=== PATIENT | male | born 2000 | race Caucasian/White ===

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

== ENCOUNTER 2022-05-09 00:45 | Inpatient (IN) ==
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
[2022-05-09 02:26] LABS: Appearance Urine Cloudy (Clear); Bacteria Urine Automated 4+ (Negative); Bilirubin Urine Negative (Negative); Blood Urine Negative (Negative); Color Urine Dark Yellow; Epithelial Cell Urine Auto >30 /lpf (0-5); Glucose Urine UA Negative (Negative); Ketones Urine Trace (Negative); Leukocyte Esterase Urine 2+ (Negative); Nitrite Urine Positive (Negative); Protein Urine Trace (Negative); RBC Urine Automated 0-4 /hpf (0-4); Urobilinogen Urine Negative (Negative); WBC Urine Automated >30 /hpf (0-5); pH Urine 6.5 (4.5-7.5)
[2022-05-09 02:58] LABS: Basophils # (auto) 0.03 K/uL (0-0.2); Basophils % (auto) 0.3 %; Eosinophils # (auto) 0.08 K/uL (0-0.50); Eosinophils % (auto) 0.7 %; Hematocrit (blood only) 39.1 % (40.1-51.0); Hemoglobin 13.3 g/dl (14.0-18.0); Immature Granulocytes # (auto) 0.03 K/uL (0.00-0.02); Immature Granulocytes % (auto) 0.3 %; Lymphocytes # (auto) 2.31 K/uL (1.2-3.4); Lymphocytes % (auto) 20.7 %; Mean Corpuscular Hemoglobin 27.9 pg (25.0-34.0); Mean Platelet Volume 9.3 fL (9.4-12.4); Monocytes # (auto) 0.58 K/uL (0.24-0.82); Monocytes % (auto) 5.2 %; Neutrophils # (auto) 8.11 K/uL (1.4-6.5); Neutrophils % (auto) 72.8 %; Platelet Count 519 K/uL (130-400); RDW Coefficient of Variation 15.3 % (11.5-14.5); RDW Standard Deviation 46.1 fL (36.4-46.3); Red Blood Count 4.77 M/uL (4.63-6.08); White Blood Count 11.14 K/ul (4.8-10.8)
[2022-05-09 03:23] LABS: Alanine Aminotransferase 12 U/L (7-52); Albumin Globulin Ratio 1.2 (0.9-2); Albumin Level 4.3 gm/dl (3.4-5.0); Alkaline Phosphatase 89 U/L (34-104); Anion Gap 7 (3-11); Aspartate Aminotransferase 11 U/L (13-39); BUN Creatinine Ratio 19.1 (10-20); Bilirubin,Total 0.3 mg/dl (0.2-1.0); Blood Urea Nitrogen 13 mg/dl (6-23); Calcium 9.3 mg/dl (8.5-10.1); Carbon Dioxide 29 mmol/L (21-32); Chloride 101 mmol/L (98-107); Creatinine Clr Calc Pharmacy 142.7 ml/min; Est GFR (African American) > 150.0 ml/min; Est GFR (Non-African American) 135.6 ml/min; Globulin 3.5 gm/dl (2.5-4.0); Glucose 123 mg/dl (70-99(Fasting)); Potassium 3.8 mmol/L (3.5-5.1); Sodium 137 mmol/L (136-145); Total Protein 7.8 gm/dl (6.0-8.3)
[2022-05-09 04:04] LABS: Amphetamines+Metham, Urine Neg (Neg); Barbiturates, Urine Neg (Neg); Benzodiazepine, Urine Neg (Neg); Cocaine, Urine Neg (Neg); MDMA (Ecstacy), Urine Neg (Neg); Methadone, Urine Neg (Neg); Opiate, Urine Neg (Neg); Phencyclidine, Urine Neg (Neg)
[2022-05-09] MEDS ORDERED: POLYETHYLENE (MIRALAX) 17 GM PACK PO PRN (08:10)
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
[2022-05-09] MEDS ORDERED: PIPERACILLIN/TAZOBACTAM 3.375 GM in DEXTROSE 5% 100 ML IV ONE (09:00)
[2022-05-09] MEDS: HEPARIN SOD 5,000 UNIT/0.5 ML VIAL SQ SCH ×3 (10:40→21:48)
[2022-05-09] MEDS: OXYBUTYNIN CHLORIDE 5 MG TAB PO SCH ×2 (10:41→20:53)
[2022-05-09] MEDS: GABAPENTIN 100 MG CAP PO SCH ×2 (10:41→20:53)
[2022-05-09] MEDS: PIPERACILLIN/TAZOBACTAM 3.375 GM in DEXTROSE 5% 100 ML IV SCH ×2 (15:35→21:59)
[2022-05-09] MEDS: BACLOFEN 20 MG TAB PO PRN ×2 (16:19→21:47)
[2022-05-09] MEDS: traMADol HCL 50 MG TABLET PO PRN ×2 (16:19→21:47)
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
[2022-05-09] MEDS: ASCORBIC ACID 500 MG TAB PO SCH (20:53)
[2022-05-10] MEDS: BACLOFEN 20 MG TAB PO PRN ×2 (04:08→09:44)
[2022-05-10] MEDS: traMADol HCL 50 MG TABLET PO PRN ×2 (04:08→15:03)
[2022-05-10] MEDS: PIPERACILLIN/TAZOBACTAM 3.375 GM in DEXTROSE 5% 100 ML IV SCH ×3 (06:19→21:26)
[2022-05-10] MEDS: HEPARIN SOD 5,000 UNIT/0.5 ML VIAL SQ SCH ×3 (06:21→21:25)
[2022-05-10] MEDS: GABAPENTIN 100 MG CAP PO SCH ×2 (09:44→21:24)
[2022-05-10] MEDS: ASCORBIC ACID 500 MG TAB PO SCH (09:44)
[2022-05-10] MEDS: OXYBUTYNIN CHLORIDE 5 MG TAB PO SCH ×2 (09:44→21:25)
[2022-05-10] MEDS: BACLOFEN 20 MG TAB PO SCH ×2 (16:24→21:25)
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
--- NOTE | 2022-05-10 19:37 | CT Scan Report ---
CT pelvis wo con HISTORY: 21 years-old Male sacral decubitus ulcer, r/o Osteo myelitis paraplegia patient with chroni c sacral decubitus ulcer. COMPARISON: CT abdomen and pelvis 02/25/2021 TECHNIQUE: Multiple axial CT images of the pelvis were obtained without the use of IV contrast. FINDINGS: Limited exam secondary to positioning. Air-fluid levels are noted within nondilated loops of small an d large bowel. The appendix is not definitively seen. Moderate circumferential urinary bladder wall t hickening. Prostate is upper limits of normal in size. Suggestion of bilateral hydroceles. Left-sided sacral decubitus ulcer extends to the sacrococcygeal junction. No soft tissue abscess. Tra ce presacral edema. There is chronic fracture with sclerosis and angulation at the sacrococcygeal manuel ction which is new from the 02/25/2021 exam. Moderate associated cortical thickening. No acute osseou s erosion identified. Heterotopic ossifications noted superior to the right femoral acetabular joint. IMPRESSION: 1. Left sacral decubitus ulcer without abscess. 2. Findings suggestive of chronic osteomyelitis of the sacrococcygeal junction with chronic angulated fracture deformity, likely on a pathologic basis. This is new from the initial trauma study from . 3. Urinary bladder wall thickening suggestive of neurogenic bladder. ACT 112: Negative or not required by law. The above report was generated using voice recognition software. It may contain grammatical, syntax o r spelling errors. Electronically signed by: Diego Salmeron M.D. 05/10/2022 7:34 PM
[2022-05-11] MEDS: BACLOFEN 20 MG TAB PO SCH ×4 (03:57→21:14)
[2022-05-11] MEDS: PIPERACILLIN/TAZOBACTAM 3.375 GM in DEXTROSE 5% 100 ML IV SCH ×2 (05:39→14:54)
[2022-05-11] MEDS: HEPARIN SOD 5,000 UNIT/0.5 ML VIAL SQ SCH ×3 (05:39→21:14)
[2022-05-11] MEDS: OXYBUTYNIN CHLORIDE 5 MG TAB PO SCH ×2 (09:17→21:14)
[2022-05-11] MEDS: GABAPENTIN 100 MG CAP PO SCH ×2 (09:17→21:13)
[2022-05-11] MEDS: ASCORBIC ACID 500 MG TAB PO SCH (09:17)
[2022-05-11 10:17] LABS: Marijuana Quant, GCMS Urine 38 ng/mL (<5)
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
[2022-05-11 15:39] LABS: Hematocrit (blood only) 40.3 % (40.1-51.0); Hemoglobin 13.6 g/dl (14.0-18.0); Mean Corpuscular Hemoglobin 27.9 pg (25.0-34.0); Mean Corpuscular Hgb Conc 33.7 g/dL (32.0-36.0); Mean Corpuscular Volume 82.6 fL (80.0-100.0); Platelet Count 647 K/uL (130-400); RDW Coefficient of Variation 15.6 % (11.5-14.5); RDW Standard Deviation 47.3 fL (36.4-46.3); Red Blood Count 4.88 M/uL (4.63-6.08); White Blood Count 8.75 K/ul (4.8-10.8)
[2022-05-11] MEDS: cefTRIAXone SODIUM 2,000 MG in DEXTROSE 5% 50 ML IV SCH (15:45)
[2022-05-11 16:04] LABS: BUN Creatinine Ratio 21.2 (10-20); Calcium 9.7 mg/dl (8.5-10.1); Creatinine Clr Calc Pharmacy 114.1 ml/min; Est GFR (African American) 143.4 ml/min; Est GFR (Non-African American) 123.7 ml/min; Potassium 4.2 mmol/L (3.5-5.1)
[2022-05-12] MEDS: BACLOFEN 20 MG TAB PO SCH ×4 (04:59→21:11)
[2022-05-12] MEDS: HEPARIN SOD 5,000 UNIT/0.5 ML VIAL SQ SCH ×3 (05:00→21:12)
[2022-05-12] MEDS: OXYBUTYNIN CHLORIDE 5 MG TAB PO SCH ×2 (08:56→19:17)
[2022-05-12] MEDS: GABAPENTIN 100 MG CAP PO SCH ×2 (08:56→19:17)
[2022-05-12] MEDS: ASCORBIC ACID 500 MG TAB PO SCH (08:56)
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
[2022-05-12] MEDS: cefTRIAXone SODIUM 2,000 MG in DEXTROSE 5% 50 ML IV SCH (16:56)
[2022-05-12] MEDS: traMADol HCL 50 MG TABLET PO PRN (19:16)
[2022-05-12] MEDS: ACETAMINOPHEN 325 MG TAB PO PRN (21:22)
[2022-05-13] MEDS: BACLOFEN 20 MG TAB PO SCH ×4 (04:55→21:35)
[2022-05-13] MEDS: HEPARIN SOD 5,000 UNIT/0.5 ML VIAL SQ SCH ×3 (05:14→21:35)
[2022-05-13] MEDS: ASCORBIC ACID 500 MG TAB PO SCH (09:06)
[2022-05-13] MEDS: GABAPENTIN 100 MG CAP PO SCH ×2 (09:06→19:36)
[2022-05-13] MEDS: OXYBUTYNIN CHLORIDE 5 MG TAB PO SCH ×2 (09:06→19:37)
[2022-05-13] MEDS: traMADol HCL 50 MG TABLET PO PRN ×2 (11:21→19:35)
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
[2022-05-13] MEDS: cefTRIAXone SODIUM 2,000 MG in DEXTROSE 5% 50 ML IV SCH (15:53)
[2022-05-13] MEDS: ACETAMINOPHEN 325 MG TAB PO PRN (19:34)
[2022-05-13] MEDS ORDERED: GADOBUTROL 65ML VIAL IV ONE (22:39)
[2022-05-14] MEDS: BACLOFEN 20 MG TAB PO SCH ×4 (04:55→21:26)
[2022-05-14] MEDS: HEPARIN SOD 5,000 UNIT/0.5 ML VIAL SQ SCH ×3 (05:07→21:28)
[2022-05-14] MEDS: ASCORBIC ACID 500 MG TAB PO SCH (08:06)
[2022-05-14] MEDS: GABAPENTIN 100 MG CAP PO SCH ×2 (08:06→21:27)
[2022-05-14] MEDS: OXYBUTYNIN CHLORIDE 5 MG TAB PO SCH ×2 (08:06→21:26)
[2022-05-14] MEDS: traMADol HCL 50 MG TABLET PO PRN ×3 (08:06→21:25)
--- NOTE | 2022-05-14 08:55 | Magnetic Resonance Report ---
MR pelvis wo/w con CLINICAL HISTORY: ID recs; for osteomyelitis TECHNIQUE: Multiplanar multisequence images were obtained of the abdomen with and without the adminis tration of contrast. COMPARISON: Comparison is made to CT pelvis 05/10/2022 FINDINGS: Bowel: Unremarkable. Lymph nodes: Unremarkable. Bladder: Unremarkable. Reproductive organs: No acute abnormalities. There are wedge-shaped hypodensities in the peripheral z one which are nonspecific. Vessels: Unremarkable. Abdominal wall: There is edema and subcutaneous emphysema in the soft tissues about the sacrum extend ing to the skin surface. No drainable fluid collection is seen. Bones: Edema is seen in the lower sacrum compatible with osteomyelitis. The chronic fracture of the s acrococcygeal junction is better seen on CT. IMPRESSION: Findings compatible with osteomyelitis of the lower sacrum with associated cellulitis. ACT 112: Negative or not required by law. Electronically signed by: Abad Bernal M.D. 05/14/2022 8:53 AM
[2022-05-14 09:54] LABS: Hemoglobin 14.4 g/dl (14.0-18.0); Mean Corpuscular Hemoglobin 27.9 pg (25.0-34.0); Mean Corpuscular Hgb Conc 33.5 g/dL (32.0-36.0); Mean Corpuscular Volume 83.3 fL (80.0-100.0); Mean Platelet Volume 8.7 fL (9.4-12.4); Platelet Count 665 K/uL (130-400); RDW Coefficient of Variation 15.8 % (11.5-14.5); Red Blood Count 5.16 M/uL (4.63-6.08); White Blood Count 7.22 K/ul (4.8-10.8)
[2022-05-14 10:19] LABS: Anion Gap 7 (3-11); BUN Creatinine Ratio 25.7 (10-20); Blood Urea Nitrogen 18 mg/dl (6-23); Calcium 10.6 mg/dl (8.5-10.1); Carbon Dioxide 31 mmol/L (21-32); Chloride 100 mmol/L (98-107); Creatinine Clr Calc Pharmacy 138.6 ml/min; Est GFR (African American) > 150.0 ml/min; Glucose 93 mg/dl (70-99(Fasting)); Magnesium 1.9 mg/dl (1.7-2.4); Potassium 4.1 mmol/L (3.5-5.1); Sodium 138 mmol/L (136-145)
[2022-05-14] MEDS: cefTRIAXone SODIUM 2,000 MG in DEXTROSE 5% 50 ML IV SCH (15:26)
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
[2022-05-15] MEDS: BACLOFEN 20 MG TAB PO SCH ×4 (03:29→21:16)
[2022-05-15] MEDS: HEPARIN SOD 5,000 UNIT/0.5 ML VIAL SQ SCH ×3 (06:08→21:16)
[2022-05-15] MEDS: traMADol HCL 50 MG TABLET PO PRN ×3 (08:49→21:15)
[2022-05-15] MEDS: GABAPENTIN 100 MG CAP PO SCH ×2 (09:09→21:16)
[2022-05-15] MEDS: ASCORBIC ACID 500 MG TAB PO SCH (09:09)
[2022-05-15] MEDS: OXYBUTYNIN CHLORIDE 5 MG TAB PO SCH ×2 (09:09→21:16)
--- NOTE | 2022-05-15 14:05 | Surgery Progress Note ---
Date of Service May 15, 2022 Assessment & Plan (1) Sacral decubitus ulcer: (2) Osteomyelitis: Plan 21 year-old paraplegic with chronic sacral wound now with MRI of pelvis showing osteomyelitis. Infectious disease recommending bone biopsy for culture and pathology to determine antibiotic therapy. Will plan for sacral wound bone biopsy tomorrow in operating room under sedation. Npo after midnight. continue current medical management. Will update case management in case of need of grease renderer antibiotic treatment. Discussed with Dr. Morgan who agrees with above. Admission and Anticipated Discharge Date Admission Date: May 09, 2022 Subjective states he had issues with wound care at last rehab facility. Never had wound vac before. Believes he had a bone biopsy done in [place] about 6 months ago but does not believe he was ever treated for wound infection States he has some soreness due to wound vac and positioning but does not feel p ain because of being paraplegic. Physical Exam Constitutional: WD/WN, vitals as above well developed and well nourished; no acute distress Neck: normal visual inspection and trachea midline Respiratory: normal respiratory effort; no respiratory distress, no labored breathing and no retractions Gastrointestinal (Abdomen): Inspection/Auscultation: abdomen normal to inspection; abdomen not distended Has colostomy bag present. He is lying on his right side. Wound vac is present and functioning. Sacral wound not examined given wound vac present. Skin: no rashes, warm and dry Psychiatric: Orientation: alert and oriented x 3 Results & Data ([facility]) Vital Signs (Past 12 Hours) Vital Signs Temp Pulse Resp BP Pulse Ox O2 Del Method 05/15/22 10:57 Room Air 05/15/22 07:14 37 C 75 16 107/64 95 Room Air Diagnostic Findings MR pelvis wo/w con CLINICAL HISTORY: ID recs; for osteomyelitis TECHNIQUE: Multiplanar multisequence images were obtained of the abdomen with and without the administration of contrast. COMPARISON: Comparison is made to CT pelvis 05/10/2022 FINDINGS: Bowel: Unremarkable. Lymph nodes: Unremarkable. Bladder: Unremarkable. Reproductive organs: No acute abnormalities. There are wedge-shaped hypodensities in the peripheral zone which are nonspecific. Vessels: Unremarkable. Abdominal wall: There is edema and subcutaneous emphysema in the soft tissues about the sacrum extending to the skin surface. No drainable fluid collection is seen. Bones: Edema is seen in the lower sacrum compatible with osteomyelitis. The chronic fracture of the sacrococcygeal junction is better seen on CT. IMPRESSION: Findings compatible with osteomyelitis of the lower sacrum with associated cellulitis.
[2022-05-15] MEDS: cefTRIAXone SODIUM 2,000 MG in DEXTROSE 5% 50 ML IV SCH (15:57)
[2022-05-15] MEDS: ACETAMINOPHEN 325 MG TAB PO PRN (15:57)
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
[2022-05-16] MEDS: BACLOFEN 20 MG TAB PO SCH ×4 (03:50→20:20)
[2022-05-16] MEDS: HEPARIN SOD 5,000 UNIT/0.5 ML VIAL SQ SCH ×3 (05:43→20:20)
--- NOTE | 2022-05-16 08:38 | History & Physical Bridge Note ---
Date of Service May 16, 2022 History & Physical Bridge Note I have examined the patient, reviewed the History & Physical and in the interval since the performance of the History & Physical I have noted the following changes of clinical significance: no changes noted
[2022-05-16] MEDS ORDERED: BUPIVACAINE 0.5 % 5 MG/1 ML MPF 30ML VIAL ONE (09:15)
[2022-05-16] MEDS ORDERED: LIDOCAINE 2% MPF LOCAL 5 ML VIAL INFIL ONE ×2 (09:43→10:13)
[2022-05-16] MEDS ORDERED: fentaNYL citrate 100 MCG/2 ML VIAL ONE (09:43)
[2022-05-16] MEDS ORDERED: MIDAZOLAM HCL 1 MG/ML 2ML VIAL ONE (09:43)
[2022-05-16] MEDS ORDERED: PROPOFOL IV EMULSION 10 MG/ML 20 ML VIAL IV ONE ×2 (09:43→10:13)
[2022-05-16] MEDS ORDERED: ONDANSETRON INJ 2 MG/ML 2 ML VIAL ONE (10:13)
--- NOTE | 2022-05-16 10:17 | Post Operative Brief Note ---
Immediate Post Op Note v1 Date of Surgery May 16, 2022 Pre & Post Diagnosis Operation Date: 05/16/22 08:20 Pre-Op Diagnosis: Sacral Decubitus Wound Post-Op Diagnosis: Sacral Decubitus Wound I identified the patient and participated in the time-out.: Yes Procedure Operation Date: 05/16/22 08:20 Actual Procedures p Bone Biopsy of Sacral Wound(Not Applicable) - Devon Morgan MD Surgeon Devon Morgan MD Certified Professional Ergonomist none Estimated Blood Loss 2 Findings Consistent with Post-Op Diagnosis
--- NOTE | 2022-05-16 10:20 | Operative Report ---
Post Operative Report Pre & Post Diagnosis Operation Date: 05/16/22 08:20 Pre-Op Diagnosis: Sacral Decubitus Wound Post-Op Diagnosis: Sacral Decubitus Wound I identified the patient and participated in the time-out.: Yes Procedure Operation Date: 05/16/22 08:20 Actual Procedures p Bone Biopsy of Sacral Wound(Not Applicable) - Devon Morgan MD Surgeon Devon Morgan MD Ocean Export Account Manager none Estimated Blood Loss 2 Findings Consistent with Post-Op Diagnosis Specimens sacral bone fragments for culture and pathology Drains none Anesthesia Type MAC Complications no immediate complications Description of Procedure Patient taken to the operating room, placed supine on the operating table. A time was performed, and the patient was placed in the lateral decubitus position. After adequate anesthesia allergies was obtained, the area was prepped and draped in the normal sterile fashion. The sacral wound measured 3 cm in length and 2 cm in width. It tracked 2 cm to the right undermining the skin. It was down to the bone. There is no necrosis or fibrinous exudate. Bone biopsies were taken for culture and pathology. These were sent off field for specimen. Attention was turned hemostasis, which was excellent. The wound was packed wet-to-dry and a dressing was applied. He tolerated the procedure without complication, transferred in stable condition to the PACU. All instrument, needle, and sponge counts were correct at the end of the case. I attest to the content of the Intraoperative Record and any orders documented therein. Any exceptions are noted below.
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
[2022-05-16] MEDS ORDERED: ATROPINE SULFATE 0.1 MG/ML 10ML SYR IV PRN (10:33)
[2022-05-16] MEDS ORDERED: ePHEDrine sulfate 50 MG/ML AMP IV PRN (10:33)
[2022-05-16] MEDS ORDERED: ONDANSETRON INJ 2 MG/ML 2 ML VIAL IV PRN (10:33)
[2022-05-16] MEDS: fentaNYL citrate 100 MCG/2 ML VIAL IV PRN ×2 (10:42→10:47)
[2022-05-16] MEDS: GABAPENTIN 100 MG CAP PO SCH ×2 (11:41→20:21)
[2022-05-16] MEDS: ASCORBIC ACID 500 MG TAB PO SCH (11:42)
[2022-05-16] MEDS: OXYBUTYNIN CHLORIDE 5 MG TAB PO SCH ×2 (11:42→20:20)
[2022-05-16] MEDS: traMADol HCL 50 MG TABLET PO PRN ×2 (11:46→19:17)
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
--- NOTE | 2022-05-16 12:41 | Anesthesiology Progress Note ---
Date of Service May 16, 2022 Anesthesia Post Procedure Vital Signs Vital Signs: Temp Pulse Pulse Pulse Resp BP BP 05/16/22 12:31 36.6 C 65 17 121/78 05/16/22 12:06 105/57 L 05/16/22 11:51 36.8 C 98 H 16 86/56 L 05/16/22 11:22 36.3 C L 69 16 104/58 L 05/16/22 11:00 36.4 C L 71 15 111/68 05/16/22 10:45 104 H 20 90/50 L 05/16/22 10:35 122 H 20 100/37 L 05/16/22 10:27 36.4 C L 85 15 93/49 L 05/16/22 08:26 36.7 C 94 H 20 124/79 05/15/22 22:41 36.8 C 60 18 146/83 H 05/15/22 14:59 36.6 C 86 16 105/67 Pulse Ox O2 Del Method 05/16/22 12:31 94 Room Air 05/16/22 12:06 05/16/22 11:51 96 Room Air 05/16/22 11:22 93 Room Air 05/16/22 11:00 97 Room Air 05/16/22 10:45 97 Room Air 05/16/22 10:35 97 Room Air 05/16/22 10:27 97 Room Air 05/16/22 08:26 99 Room Air 05/15/22 22:41 97 Room Air 05/15/22 14:59 99 Room Air Pain Intensity Back: Pain Intensity: 5 Transfer of Care Handoff Completed per policy Notes Mental Status: alert / awake / arousable Patient Amnestic to Procedure: Yes Nausea / Vomiting: adequately controlled Pain: adequately controlled Airway Patency, RR, SpO2: stable & adequate BP & HR: stable & adequate Hydration State: stable & adequate Anesthetic Complications: no major complications apparent
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
[2022-05-16] MEDS: cefTRIAXone SODIUM 2,000 MG in DEXTROSE 5% 50 ML IV SCH (16:53)
[2022-05-16] MEDS: ACETAMINOPHEN 325 MG TAB PO PRN (20:19)
[2022-05-17] MEDS: HEPARIN SOD 5,000 UNIT/0.5 ML VIAL SQ SCH ×3 (05:36→21:42)
[2022-05-17] MEDS: BACLOFEN 20 MG TAB PO SCH ×4 (05:36→21:41)
[2022-05-17] MEDS: OXYBUTYNIN CHLORIDE 5 MG TAB PO SCH ×2 (08:30→21:42)
[2022-05-17] MEDS: GABAPENTIN 100 MG CAP PO SCH ×2 (08:30→21:41)
[2022-05-17] MEDS: traMADol HCL 50 MG TABLET PO PRN ×2 (08:31→16:13)
[2022-05-17] MEDS: ASCORBIC ACID 500 MG TAB PO SCH (08:31)
[2022-05-17] MEDS: cefTRIAXone SODIUM 2,000 MG in DEXTROSE 5% 50 ML IV SCH (15:59)
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
[2022-05-17] MEDS: ACETAMINOPHEN 325 MG TAB PO PRN (16:12)
[2022-05-18] MEDS: traMADol HCL 50 MG TABLET PO PRN ×3 (00:10→16:50)
[2022-05-18] MEDS: BACLOFEN 20 MG TAB PO SCH ×4 (03:11→22:08)
[2022-05-18] MEDS: HEPARIN SOD 5,000 UNIT/0.5 ML VIAL SQ SCH ×3 (05:40→22:07)
[2022-05-18] MEDS: OXYBUTYNIN CHLORIDE 5 MG TAB PO SCH ×2 (08:19→22:08)
[2022-05-18] MEDS: ASCORBIC ACID 500 MG TAB PO SCH (08:20)
[2022-05-18] MEDS: GABAPENTIN 100 MG CAP PO SCH ×2 (08:20→22:08)
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
[2022-05-19] MEDS: HEPARIN SOD 5,000 UNIT/0.5 ML VIAL SQ SCH ×3 (05:04→21:50)
[2022-05-19] MEDS: BACLOFEN 20 MG TAB PO SCH ×4 (05:04→21:49)
--- NOTE | 2022-05-19 08:31 | Communication Note ---
Date of Service: May 19, 2022 GI was consulted regarding reversal of his ostomy. Discussed with attending, hospitalist. This will need to be evaluated by either general surgery or col orectal. Recall with any questions or concerns.
[2022-05-19] MEDS: GABAPENTIN 100 MG CAP PO SCH ×2 (08:50→21:50)
[2022-05-19] MEDS: ASCORBIC ACID 500 MG TAB PO SCH (08:50)
[2022-05-19] MEDS: ACETAMINOPHEN 325 MG TAB PO PRN ×2 (08:50→19:53)
[2022-05-19] MEDS: OXYBUTYNIN CHLORIDE 5 MG TAB PO SCH ×2 (08:50→21:50)
[2022-05-19] MEDS: traMADol HCL 50 MG TABLET PO PRN ×2 (08:51→19:53)
[2022-05-19] MEDS: DAPTOmycin 475 MG in SYRINGE 0 ML IV SCH (12:28)
--- NOTE | 2022-05-19 12:45 | Communication Note ---
Date of Service: May 19, 2022 General Surgery consulted for evaluation of colostomy/mucous fistula reversal. Discussed with Dr. Harrell that this would not be recommended at this time due to the sacral wound and chronic osteomyelitis. Would need to know for certain if patient is bowel continent prior to any discussion of reversal. It would be advised that he return to his prior general/colorectal surgeon who performed the colostomy for discussion of reversal if possible. Discussed with Dr. Morgan who agrees with above.
[2022-05-19] MEDS ORDERED: diphenhydrAMINE Capsule 25 MG CAP PO ONE (15:15)
[2022-05-19] MEDS ORDERED: CETIRIZINE HCL 10 MG TABLET PO ONE (15:15)
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
[2022-05-20] MEDS: BACLOFEN 20 MG TAB PO SCH ×5 (04:13→21:42)
[2022-05-20] MEDS: traMADol HCL 50 MG TABLET PO PRN ×3 (04:15→16:58)
[2022-05-20] MEDS: HEPARIN SOD 5,000 UNIT/0.5 ML VIAL SQ SCH ×3 (05:33→21:04)
[2022-05-20] MEDS: ACETAMINOPHEN 325 MG TAB PO PRN ×3 (08:58→21:02)
[2022-05-20] MEDS: OXYBUTYNIN CHLORIDE 5 MG TAB PO SCH ×2 (08:59→21:08)
[2022-05-20] MEDS: CETIRIZINE HCL 10 MG TABLET PO SCH (08:59)
[2022-05-20] MEDS: ASCORBIC ACID 500 MG TAB PO SCH (09:00)
[2022-05-20] MEDS: GABAPENTIN 100 MG CAP PO SCH ×3 (09:00→21:42)
[2022-05-20] MEDS: DAPTOmycin 475 MG in SYRINGE 0 ML IV SCH (11:41)
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
--- NOTE | 2022-05-20 20:10 | CT Scan Report ---
CT SCAN OF THE ABDOMEN AND PELVIS WITHOUT IV CONTRAST CLINICAL HISTORY: Generalized abdominal pain. Nausea. COMPARISON STUDY: Abdominal CT dated 02/25/2021. MRI of the pelvis dated 05/13/2022. TECHNIQUE: CT scan of the abdomen and pelvis is performed from the lung bases to the proximal femora. Images are reviewed in the axial, sagittal, and coronal planes. IV contrast was not administered for this examination as per the referring clinician. Note that the examination was performed in signific antly suboptimal fashion without oral and IV contrast. A dose lowering technique was utilized adherin g to the principles of ALARA. CT DOSE: 298.38 mGy.cm FINDINGS: Lung bases: The heart is normal in size and without pericardial effusion. The lung bases are clear. Liver: The unenhanced liver is normal in size, contour, and attenuation. There is no intrahepatic zeyad iary ductal dilatation. Gallbladder: Unremarkable. Spleen: Normal in size and attenuation. Pancreas: Unremarkable. Adrenal glands: Unremarkable. Kidneys: There is asymmetric cortical atrophy of the right kidney as compared to the left. No hydrone phrosis is seen. There are no renal calculi identified. There is no evidence of contour deforming mulugeta al mass lesion. Abdominal vasculature: The abdominal aorta is normal in course and caliber. Bowel: There is postoperative change from colonic resection. A colostomy seen in the right mid abdome n and a mucous fistula is seen in the left midabdomen. There is moderate fecal retention in the right colon. The small bowel loops are dilated and fecalized, measuring up to 3.8 cm diameter. There is a focal transition point in the right lower quadrant seen on image #307. The distal small bowel is deco mpressed and this is consistent with a high-grade obstruction. There is surrounding mesenteric edema and interloop fluid. No focally thick-walled bowel loops are identified. There is no pneumatosis inte stinalis or portal venous gas. The appendix is not visualized. Peritoneum: There is no intraperitoneal free air or abdominal ascites. Lymphadenopathy: None. Pelvic viscera: The bladder is decompressed around a Pelayo catheter and appears circumferential thick -walled. There are foci of intraluminal gas. The prostate and seminal vesicles are normal as visualiz ed. Skeletal structures: No lytic or blastic lesions are seen. There is chronic deformity of the hips and bony pelvis. Sclerotic change, deformity, and periostitis of the sacrum is similar to previous with surrounding infiltration. There is mild erosive change suggested at the sacrococcygeal junction findi ngs are consistent with osteolytic myelitis which may be chronic. This is better assessed on the rece nt pelvic MRI. IMPRESSION: 1. High-grade small bowel obstruction with a transition point seen in the right lower quadrant. This is likely in the basis of adhesions. 2. There is interloop fluid and mild mesenteric edema. No focally thick walled small bowel loops iden tified. There is no pneumatosis intestinalis, portal venous gas, or intraperitoneal free air. 3. There is evidence of sacrococcygeal osteomyelitis. This may be chronic and this was better assesse d on the recent pelvic MRI. 4. The bladder is decompressed and appears circumferentially thick walled. Correlate with clinical fi ndings and urinalysis. 5. Asymmetric cortical atrophy of the right kidney is similar to previous. 6. Additional findings as above. ACT 112: Negative or not required by law. Electronically signed by: Pritesh Dodson M.D. 05/20/2022 8:08 PM
[2022-05-20] MEDS: SODIUM CHLORIDE 0.9% 1000ML 1,000 ML IV SCH (20:58)
[2022-05-20] MEDS: ondansetron HCL 6 MG in DEXTROSE 5% 50 ML IV PRN (21:03)
[2022-05-20] MEDS: tiZANidine HCL 4 MG TABLET PO PRN (21:08)
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
[2022-05-20] MEDS: KETOROLAC TROMETHAMINE 15 MG/ML VIAL IV PRN (22:31)
[2022-05-21] MEDS: traMADol HCL 50 MG TABLET PO PRN ×4 (01:50→22:20)
[2022-05-21] MEDS: BACLOFEN 20 MG TAB PO SCH ×4 (01:50→22:22)
[2022-05-21] MEDS: KETOROLAC TROMETHAMINE 15 MG/ML VIAL IV PRN ×2 (06:04→13:05)
[2022-05-21] MEDS: HEPARIN SOD 5,000 UNIT/0.5 ML VIAL SQ SCH ×3 (06:07→22:23)
[2022-05-21] MEDS: SODIUM CHLORIDE 0.9% 1000ML 1,000 ML IV SCH (08:57)
[2022-05-21] MEDS: CETIRIZINE HCL 10 MG TABLET PO SCH (08:58)
[2022-05-21] MEDS: ASCORBIC ACID 500 MG TAB PO SCH (08:58)
[2022-05-21] MEDS: OXYBUTYNIN CHLORIDE 5 MG TAB PO SCH ×2 (08:58→22:22)
[2022-05-21] MEDS: GABAPENTIN 100 MG CAP PO SCH ×2 (08:58→22:22)
[2022-05-21] MEDS: ACETAMINOPHEN 1,000 MG/100 ML VIAL IV SCH ×2 (10:41→17:22)
[2022-05-21] MEDS: metroNIDAZOLE 500 MG/100 ML BAG IV SCH ×2 (10:42→17:25)
[2022-05-21] MEDS: cefTRIAXone SODIUM 1,000 MG in DEXTROSE 5% AD-VAN 50 ML IV SCH (10:42)
[2022-05-21 10:44] LABS: Basophils # (auto) 0.03 K/uL (0-0.2); Basophils % (auto) 0.2 %; Eosinophils # (auto) 0.03 K/uL (0-0.50); Eosinophils % (auto) 0.2 %; Hematocrit (blood only) 43.8 % (40.1-51.0); Hemoglobin 14.8 g/dl (14.0-18.0); Immature Granulocytes # (auto) 0.04 K/uL (0.00-0.02); Immature Granulocytes % (auto) 0.3 %; Lymphocytes # (auto) 1.66 K/uL (1.2-3.4); Lymphocytes % (auto) 12.1 %; Mean Corpuscular Hemoglobin 27.9 pg (25.0-34.0); Mean Corpuscular Hgb Conc 33.8 g/dL (32.0-36.0); Mean Corpuscular Volume 82.5 fL (80.0-100.0); Mean Platelet Volume 8.9 fL (9.4-12.4); Monocytes # (auto) 0.85 K/uL (0.24-0.82); Monocytes % (auto) 6.2 %; Neutrophils # (auto) 11.14 K/uL (1.4-6.5); Platelet Count 645 K/uL (130-400); RDW Coefficient of Variation 15.3 % (11.5-14.5); RDW Standard Deviation 46.1 fL (36.4-46.3); Red Blood Count 5.31 M/uL (4.63-6.08); White Blood Count 13.75 K/ul (4.8-10.8)
[2022-05-21 11:53] LABS: Albumin Globulin Ratio 1.2 (0.9-2); Albumin Level 4.5 gm/dl (3.4-5.0); BUN Creatinine Ratio 28.7 (10-20); Bilirubin,Total 0.5 mg/dl (0.2-1.0); Calcium 10.3 mg/dl (8.5-10.1); Creatinine Clr Calc Pharmacy 111.5 ml/min; Est GFR (Non-African American) 122.5 ml/min; Globulin 3.7 gm/dl (2.5-4.0); Potassium 4.3 mmol/L (3.5-5.1); Total Protein 8.2 gm/dl (6.0-8.3)
[2022-05-21] MEDS: DAPTOmycin 475 MG in SYRINGE 0 ML IV SCH (12:33)
--- NOTE | 2022-05-21 14:55 | CT Scan Report ---
CT chest diagnostic wo con CLINICAL HISTORY: Tenderness on right side of chest. TECHNIQUE: Multidetector row helical CT of the chest was performed. Coronal and sagittal reformations were obtained. Automated dose lowering techniques and/or adjustment according to patient size were u tilized for this exam. CT DOSE: 371.36 mGy.cm Comparison: Comparison is made to CT chest 02/25/2021 FINDINGS: Lungs and pleura: Scarring is seen in the right upper lobe. Heart and pericardium: Heart size is normal. No pericardial effusion. Vessels: Unremarkable. Mediastinum and leonard: Unremarkable. Enteric tube is seen in the esophagus. Residual thymic tissue is seen. Chest wall and lower neck: Subcentimeter axillary lymph nodes noted. Abdomen: Unremarkable. Bones: Posterior fixation hardware is seen. Degenerative changes and fragmentation are seen in the mi d thoracic spine with narrowing of the thoracic spinal canal due to chronic fragmentation IMPRESSION: Previously noted pulmonary contusions have resolved. Previously noted fractures in the thoracic spine demonstrate interval healing changes and posterior fixation hardware placement. The spinal canal rem ains somewhat narrowed at T4. ACT 112: Negative or not required by law. Electronically signed by: Abad Bernal M.D. 05/21/2022 2:53 PM
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
[2022-05-21 18:37] LABS: Appearance Urine Cloudy (Clear); Bacteria Urine Automated 4+ (Negative); Bilirubin Urine Negative (Negative); Blood Urine Trace (Negative); Color Urine Yellow; Epithelial Cell Urine Auto >30 /lpf (0-5); Glucose Urine UA Negative (Negative); Ketones Urine Trace (Negative); Leukocyte Esterase Urine Negative (Negative); Nitrite Urine Positive (Negative); Protein Urine Trace (Negative); Specific Gravity Urine 1.036 (1.000-1.030); Urobilinogen Urine Negative (Negative); WBC Urine Automated >30 /hpf (0-5); pH Urine 5.5 (4.5-7.5)
[2022-05-21 19:22] LABS: Cast Urine Automated 0 /lpf (0-5)
[2022-05-22] MEDS: ACETAMINOPHEN 1,000 MG/100 ML VIAL IV SCH ×3 (01:21→18:07)
[2022-05-22] MEDS: tiZANidine HCL 4 MG TABLET PO PRN ×2 (01:57→10:39)
[2022-05-22] MEDS: metroNIDAZOLE 500 MG/100 ML BAG IV SCH ×3 (02:02→18:28)
[2022-05-22] MEDS: KETOROLAC TROMETHAMINE 15 MG/ML VIAL IV PRN ×3 (02:05→20:31)
[2022-05-22] MEDS: SODIUM CHLORIDE 0.9% 1000ML 1,000 ML IV SCH ×3 (02:10→16:24)
[2022-05-22] MEDS: traMADol HCL 50 MG TABLET PO PRN ×4 (04:58→22:32)
[2022-05-22] MEDS: BACLOFEN 20 MG TAB PO SCH ×4 (04:58→22:33)
[2022-05-22] MEDS: HEPARIN SOD 5,000 UNIT/0.5 ML VIAL SQ SCH ×3 (04:59→22:34)
--- NOTE | 2022-05-22 09:05 | XRay Report ---
KUB HISTORY: Follow up study in a patient with small bowel obstruction Follow up on SBO COMPARISON: CT abdomen pelvis 05/20/2022 FINDINGS: Persistent small bowel obstruction appears stable from prior. Dilated small bowel loops michelle sure up to approximately 4.5 cm Right mid abdominal colostomy with left mid abdominal mucous fistula. No renal calculi. No ureteral calculi. No pneumoperitoneum or pneumatosis. No fracture. IMPRESSION: Unchanged appearance of the high-grade small bowel obstruction. ACT 112: Negative or not required by law. The above report was generated using voice recognition software. It may contain grammatical, syntax o r spelling errors. Electronically signed by: Diego Salmeron M.D. 05/22/2022 9:03 AM
[2022-05-22] MEDS: CETIRIZINE HCL 10 MG TABLET PO SCH (09:16)
[2022-05-22] MEDS: OXYBUTYNIN CHLORIDE 5 MG TAB PO SCH ×2 (09:17→21:52)
[2022-05-22] MEDS: GABAPENTIN 100 MG CAP PO SCH ×2 (09:18→21:52)
[2022-05-22] MEDS: ASCORBIC ACID 500 MG TAB PO SCH (09:18)
[2022-05-22] MEDS: cefTRIAXone SODIUM 1,000 MG in DEXTROSE 5% AD-VAN 50 ML IV SCH (11:04)
[2022-05-22] MEDS ORDERED: COUGH DROP (SUGAR FREE) LOZ 24 LOZ/1 BOX BUCCAL ONE (11:16)
[2022-05-22] MEDS ORDERED: PROMETHAZINE HCL 6.25 MG in SODIUM CHLORIDE 0.9% 50 ML IV STA (12:34)
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
--- NOTE | 2022-05-22 14:04 | Surgery Progress Note ---
Date of Service May 22, 2022 Assessment & Plan (1) Small bowel obstruction: Plan: Pt with SBO had NGT in place, however he removed it yesterday KUB today shows ongoing evidence of SBO He is feeling worsening symptoms including nausea with NGT out. Will recommend replacement We will follow along closely, would like to avoid surgery if possible. may consider contrast study if no improvement Admission and Anticipated Discharge Date Admission Date: May 09, 2022 Supervising Physician Co-Signing Physician Notes I personally saw and evaluated the patient with Rosa Maria Fletcher PA-C and agree with the assessment and plan. 21-year-old male small bowel obstruction NGT was placed We will treat him nonoperatively at this point as he does have a complicated abdominal surgical history with ileostomy and mucous fistula in place If he does require operative management of his bowel obstruction, would recommend transfer of the patient to a tertiary care facility due to his abdominal surgical history Will follow Subjective Patient not feeling well. Nauseated. No true emesis. Reports abdominal pain . Physical Exam Physical Exam: awake/alert, appears in pain Respiratory: normal respiratory effort Gastrointestinal (Abdomen): Inspection/Auscultation: abdomen not distended Percussion/Palpation: + abdomen tender (generalized discomfort to palpation) and abdomen soft ostomy with only scant amount of stool in bag Results & Data ([facility]) Vital Signs (Past 12 Hours) Vital Signs Temp Pulse Resp BP Pulse Ox O2 Del Method 05/22/22 07:40 36.7 C 65 16 135/82 96 Room Air PG Care Time/CCT Total # of Minutes Spent Total Time Spent with Patient: Total time spent is greater than 50% in coordination of care (as documented) at patient's floor/unit and/or counseling patient: Coding Level of Care Code 43504 SUB INP/OBS CARE 25MIN Diagnoses Small bowel obstruction K56.609
[2022-05-22] MEDS: DAPTOmycin 475 MG in SYRINGE 0 ML IV SCH (14:41)
[2022-05-22] MEDS: CHLORASEPTIC 1.4% SOLN 180 ML BTL MT PRN ×2 (14:43→22:40)
[2022-05-22] MEDS: BACLOFEN 10 MG TAB PO PRN ×2 (17:07→22:32)
[2022-05-22] MEDS: PROMETHAZINE HCL 6.25 MG in SODIUM CHLORIDE 0.9% 50 ML IV PRN ×2 (18:27→23:58)
[2022-05-22] MEDS: ondansetron HCL 6 MG in DEXTROSE 5% 50 ML IV PRN (21:16)
[2022-05-23] MEDS: HYDROmorphone INJ 0.5 MG/0.5 ML SYR IV PRN ×8 (00:12→21:11)
[2022-05-23 00:49] LABS: Gastric Occult Blood Positive (Negative); pH Gastric Fluid 7+
[2022-05-23] MEDS ORDERED: PANTOPRAZOLE BOLUS/DRIP 1 EACH IV STA (01:01)
[2022-05-23] MEDS: SODIUM CHLORIDE 0.9% 1000ML 1,000 ML IV SCH ×3 (01:06→21:14)
[2022-05-23] MEDS: ACETAMINOPHEN 1,000 MG/100 ML VIAL IV SCH ×3 (01:08→22:40)
[2022-05-23] MEDS ORDERED: PANTOprazole 80 MG in DEXTROSE 5% 100 ML IV ONE (01:15)
[2022-05-23 01:24] LABS: Basophils # (auto) 0.06 K/uL (0-0.2); Basophils % (auto) 0.4 %; Eosinophils # (auto) 0.06 K/uL (0-0.50); Eosinophils % (auto) 0.4 %; Hematocrit (blood only) 39.6 % (40.1-51.0); Hemoglobin 13.3 g/dl (14.0-18.0); Immature Granulocytes # (auto) 0.04 K/uL (0.00-0.02); Immature Granulocytes % (auto) 0.3 %; Lymphocytes # (auto) 1.58 K/uL (1.2-3.4); Mean Corpuscular Hemoglobin 27.8 pg (25.0-34.0); Mean Corpuscular Hgb Conc 33.6 g/dL (32.0-36.0); Mean Corpuscular Volume 82.8 fL (80.0-100.0); Mean Platelet Volume 8.7 fL (9.4-12.4); Monocytes # (auto) 0.89 K/uL (0.24-0.82); Monocytes % (auto) 6.2 %; Neutrophils # (auto) 11.67 K/uL (1.4-6.5); Neutrophils % (auto) 81.7 %; Platelet Count 560 K/uL (130-400); RDW Coefficient of Variation 14.7 % (11.5-14.5); RDW Standard Deviation 44.7 fL (36.4-46.3); Red Blood Count 4.78 M/uL (4.63-6.08)
[2022-05-23 01:32] LABS: Anion Gap 10 (3-11); Calcium 9.3 mg/dl (8.5-10.1); Carbon Dioxide 24 mmol/L (21-32); Chloride 105 mmol/L (98-107); Magnesium 1.7 mg/dl (1.7-2.4); Potassium 3.8 mmol/L (3.5-5.1); Sodium 139 mmol/L (136-145)
[2022-05-23 01:38] LABS: BUN Creatinine Ratio 22.9 (10-20); Blood Urea Nitrogen 16 mg/dl (6-23); Creatinine Clr Calc Pharmacy 138.6 ml/min; Est GFR (African American) > 150.0 ml/min; Glucose 86 mg/dl (70-99(Fasting))
[2022-05-23] MEDS: PANTOprazole 40 MG in DEXTROSE 5% 100 ML IV SCH ×5 (01:50→21:14)
[2022-05-23] MEDS: metroNIDAZOLE 500 MG/100 ML BAG IV SCH ×3 (03:02→17:12)
[2022-05-23] MEDS: BACLOFEN 10 MG TAB PO PRN (03:58)
[2022-05-23] MEDS: BACLOFEN 20 MG TAB PO SCH ×4 (03:59→22:44)
[2022-05-23] MEDS ORDERED: ONDANSETRON INJ 2 MG/ML 2 ML VIAL IV STA (04:04)
[2022-05-23] MEDS: PROMETHAZINE HCL 6.25 MG in SODIUM CHLORIDE 0.9% 50 ML IV PRN ×2 (06:05→18:16)
--- NOTE | 2022-05-23 08:05 | Communication Note ---
Date of Service: May 23, 2022 Last night patient again wanted his NG tube out. Saw the patient. Complaining of abdominal pain and NG tube was draining coffee ground fluid. Patient ok to keep NG tube when told giving dilaudid prn for pain.He seems to think he needs surgery.Gastric contents came positive for blood. Ordered labs abd lactic acid levels, started on PPI drip and transferred to tele. Also ordered ct abd/pelvis with iv contrast but patient declined and wanted to get it done in morning though explained about blood in gastric contents. Currently hemodynamically stable. hb came as 13.3 down from 14.8 couple of days ago.Lactic acid ok. Stopped toradol and hep sub Q. Notified GI and Surgery and am providers..
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
[2022-05-23 10:16] LABS: Hematocrit (blood only) 41.4 % (40.1-51.0); Hemoglobin 13.9 g/dl (14.0-18.0); Mean Corpuscular Hemoglobin 27.9 pg (25.0-34.0); Mean Corpuscular Hgb Conc 33.6 g/dL (32.0-36.0); Mean Corpuscular Volume 83.1 fL (80.0-100.0); Mean Platelet Volume 8.9 fL (9.4-12.4); Platelet Count 544 K/uL (130-400); RDW Coefficient of Variation 14.7 % (11.5-14.5); RDW Standard Deviation 43.8 fL (36.4-46.3); Red Blood Count 4.98 M/uL (4.63-6.08); White Blood Count 17.35 K/ul (4.8-10.8)
[2022-05-23] MEDS: cefTRIAXone SODIUM 1,000 MG in DEXTROSE 5% AD-VAN 50 ML IV SCH (10:16)
[2022-05-23] MEDS: OXYBUTYNIN CHLORIDE 5 MG TAB PO SCH ×2 (10:19→21:09)
[2022-05-23] MEDS: CETIRIZINE HCL 10 MG TABLET PO SCH (10:19)
[2022-05-23] MEDS: GABAPENTIN 100 MG CAP PO SCH ×2 (10:19→21:08)
[2022-05-23] MEDS: DAPTOmycin 475 MG in SYRINGE 0 ML IV SCH (13:02)
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
[2022-05-23] MEDS: LORazepam 2 MG/1 ML VIAL IV PRN (22:40)
[2022-05-23] MEDS: COUGH DROP (SUGAR FREE) LOZ 24 LOZ/1 BOX BUCCAL PRN (22:46)
[2022-05-24] MEDS: metroNIDAZOLE 500 MG/100 ML BAG IV SCH ×2 (01:17→09:34)
[2022-05-24] MEDS: HYDROmorphone INJ 0.5 MG/0.5 ML SYR IV PRN ×3 (01:20→08:55)
[2022-05-24] MEDS: COUGH DROP (SUGAR FREE) LOZ 24 LOZ/1 BOX BUCCAL PRN ×2 (01:50→03:50)
[2022-05-24] MEDS: PANTOprazole 40 MG in DEXTROSE 5% 100 ML IV SCH ×2 (02:21→07:03)
[2022-05-24] MEDS: LORazepam 2 MG/1 ML VIAL IV PRN (03:41)
[2022-05-24] MEDS: BACLOFEN 20 MG TAB PO SCH ×2 (04:16→07:37)
[2022-05-24] MEDS: ACETAMINOPHEN 1,000 MG/100 ML VIAL IV SCH (06:01)
[2022-05-24] MEDS: SODIUM CHLORIDE 0.9% 1000ML 1,000 ML IV SCH (06:05)
--- NOTE | 2022-05-24 07:11 | Communication Note ---
Date of Service: May 24, 2022 Last night code binh was called as patient was agitated and took off his wound VAc. Patient says he was lying on same side and worried about pressure ulcers but quickly calmed down. Ordered iv avtivan prn. Needs to place back wound vac in am.
[2022-05-24] MEDS: CETIRIZINE HCL 10 MG TABLET PO SCH (07:34)
[2022-05-24] MEDS: OXYBUTYNIN CHLORIDE 5 MG TAB PO SCH (07:34)
[2022-05-24] MEDS: GABAPENTIN 100 MG CAP PO SCH (07:34)
[2022-05-24] MEDS: cefTRIAXone SODIUM 1,000 MG in DEXTROSE 5% AD-VAN 50 ML IV SCH (08:55)
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
--- NOTE | 2022-05-24 15:30 | XRay Report ---
XR KUB/Abdomen 1 view CLINICAL HISTORY: Follow up on SBO TECHNIQUE: 1 view of the abdomen was obtained. Comparison: Comparison is made to abdomen radiograph 05/22/2022 FINDINGS: Enteric tube tip and side-port are below the diaphragm. The osseous structures are grossly unremarkab le. Interval improvement in gas in the bowel loops, these now measures up to 35 mm in diameter. The l arge bowel is under distended. IMPRESSION: Interval improvement in gas-distended bowel loops which may represent improving small bowel obstructi on. ACT 112: Negative or not required by law. Electronically signed by: Abad Bernal M.D. 05/24/2022 3:28 PM
--- NOTE | 2022-05-30 09:41 | Coding Query ---
CODING QUERY To promote full compliance with coding requirements relating to patient care, provider participation is requested in all cases of vp marketing services and skin uncertainty. Please assist us with the question(s) below: Coding Question(s): Regarding Sacral Decubitus Ulcer, the H&P and Progress Notes, as on Progress Note 05/16 and 05/20 document as Stage 3, however, starting with Progress Note 05/21 there is documentation of Stage 4 sacral decubitus ulcer. It is not clear if the pressure ulcer worsened from stage 3 to stage 4. Please clarify below, in your clinical opinion: ( ) Stage 3 Sacral Decubitus Ulcer worsened to Stage 4 during admission ( ) Stage 3 Sacral Decubitus Ulcer the entire admission (X ) Stage 4 Sacral Decubitus Ulcer the entire admission ( ) Other: Please Specify Physician's Response(s): Thank you Kandis Coats Principal Diagnosis: "that condition established after study, to be chiefly responsible for occasioning the admission of the patient to the hospital for care." Co-Existing Principal Diagnosis: "when two or more diagnoses equally meet the criteria for principal diagnosis as determined by the circumstances of admission, diagnostic work up, and/or therapy provided, and the Alphabetic Index, Tabular List, or another coding guideline does not provide sequencing direction, any one of the diagnoses may be sequenced first." "When the physician has documented what appears to be a current diagnosis in the body of the record, but has not included the diagnosis in the final diagnostic statement, the physician should be asked whether the diagnosis should be added." (Source [facility]oding [facility] 2 QTR90. p3-4) LUIS
--- NOTE | 2022-05-30 10:34 | Coding Query ---
PRESENT ON ADMISSION QUERY To promote full compliance with coding requirements relating to pateint care, physician participation is requested in all cases of binder coverstitch uncertainty. Please assist us with the question(s) below: Please place an X within the parenthesis (x). The following diagnosis listed in this patient's medical record require physician assistance to determine if they were present on admission (POA) or not. Please advise for each diagnosis whether it was present on admission, not present on admission, or if it was clinically undetermined. 1. CHRONIC OSTEOMYELITIS OF SACROCOCCYGEAL JUNCTION - (documentation begins on the 05/11 Progress Note, with documentation on the 05/10 Progress Note as well of CT of pelvis to rule out osteomyelitis, and Surgery Consultation on 05/11 documents ?osteo and "He has a chronic sacral decubitus that shows possible chronic osteomyelitis", and then is documented thru the record after that) ( ) Present On Admission ( ) Not Present On Admission ( x) Clinically Undetermined Thank you Kandis Coats *Definition of the present on admission (POA)-Present on admission is defined as present at the time the order for inpatient admission occurs. Conditions that develop during an outpatient encounter prior to a written order for inpatient admission (including emergency department, observation, or outpatient surgery) are considered present on admission. MTDD
== END 2022-05-24 11:08 | disposition short-term general hospital (02) | DRG 988 ==
LOC: ED 00:45 → EDINP 05:51 → SUATTDRO 05:51 → 3W 08:12 → 2E 05-23 02:38

== ENCOUNTER 2022-05-28 19:58 | Inpatient (IN) ==
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
[2022-05-28 20:31] LABS: Basophils # (auto) 0.07 K/uL (0-0.2); Basophils % (auto) 0.6 %; Eosinophils # (auto) 0.41 K/uL (0-0.50); Eosinophils % (auto) 3.7 %; Hematocrit (blood only) 39.6 % (42.0-52.0); Hemoglobin 13.6 g/dl (14.0-18.0); Immature Granulocytes # (auto) 0.03 K/uL (0.01-0.20); Immature Granulocytes % (auto) 0.3 %; Lymphocytes # (auto) 3.01 K/uL (1.2-3.4); Lymphocytes % (auto) 26.9 %; Mean Corpuscular Hemoglobin 28.2 pg (25.0-34.0); Mean Corpuscular Hgb Conc 34.3 g/dL (32.0-36.0); Mean Platelet Volume 9.2 fL (9.4-12.4); Monocytes # (auto) 0.62 K/uL (0.11-0.59); Monocytes % (auto) 5.6 %; Neutrophils # (auto) 7.03 K/uL (1.40-6.50); Neutrophils % (auto) 62.9 %; Platelet Count 458 K/uL (130-400); RDW Coefficient of Variation 14.3 % (11.5-14.5); RDW Standard Deviation 41.8 fL (36.4-46.3); Red Blood Count 4.83 M/uL (4.70-6.10); White Blood Count 11.17 K/ul (4.8-10.8)
[2022-05-28 20:49] LABS: Alanine Aminotransferase 11 U/L (7-52); Albumin Globulin Ratio 1.5 (0.9-2); Albumin Level 4.5 gm/dl (3.4-5.0); Alkaline Phosphatase 90 U/L (34-104); Anion Gap 7 (3-11); Aspartate Aminotransferase 12 U/L (13-39); BUN Creatinine Ratio 14.7 (10-20); Bilirubin,Total 0.3 mg/dl (0.2-1.0); Blood Urea Nitrogen 11 mg/dl (6-23); Calcium 10.1 mg/dl (8.5-10.1); Carbon Dioxide 31 mmol/L (21-32); Chloride 100 mmol/L (98-107); Creatinine Clr Calc Pharmacy 142.9 ml/min; Est GFR (African American) > 150.0 ml/min; Est GFR (Non-African American) 130.2 ml/min; Globulin 3.1 gm/dl (2.5-4.0); Glucose 83 mg/dl (70-99(Fasting)); Lipase 32 U/L (11-82); Potassium 3.7 mmol/L (3.5-5.1); Sodium 138 mmol/L (136-145); Total Protein 7.6 gm/dl (6.0-8.3)
[2022-05-28 21:06] LABS: INR 1.1 (0.9-1.1); Prothrombin Time 11.4 Seconds (9.0-12.0)
[2022-05-28] MEDS ORDERED: cloNIDine HCL 0.1 MG TAB PO ONE (21:17)
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
[2022-05-29] MEDS ORDERED: LACTATED RINGER'S 1,000 ML IV ONE (03:27)
[2022-05-29] MEDS ORDERED: PROMETHAZINE HCL 6.25 MG in SODIUM CHLORIDE 0.9% 50 ML IV PRN (03:27)
[2022-05-29 04:50] LABS: Basophils # (auto) 0.06 K/uL (0-0.2); Basophils % (auto) 0.6 %; Eosinophils # (auto) 0.47 K/uL (0-0.50); Eosinophils % (auto) 4.6 %; Hematocrit (blood only) 38.9 % (42.0-52.0); Hemoglobin 13.7 g/dl (14.0-18.0); Immature Granulocytes # (auto) 0.03 K/uL (0.01-0.20); Immature Granulocytes % (auto) 0.3 %; Lymphocytes # (auto) 2.47 K/uL (1.2-3.4); Mean Corpuscular Hemoglobin 28.8 pg (25.0-34.0); Mean Corpuscular Hgb Conc 35.2 g/dL (32.0-36.0); Mean Corpuscular Volume 81.7 fL (80.0-100.0); Mean Platelet Volume 9.2 fL (9.4-12.4); Monocytes # (auto) 0.63 K/uL (0.11-0.59); Monocytes % (auto) 6.1 %; Neutrophils # (auto) 6.62 K/uL (1.40-6.50); Neutrophils % (auto) 64.4 %; Platelet Count 442 K/uL (130-400); RDW Coefficient of Variation 14.3 % (11.5-14.5); RDW Standard Deviation 42.2 fL (36.4-46.3); Red Blood Count 4.76 M/uL (4.70-6.10); White Blood Count 10.28 K/ul (4.8-10.8)
[2022-05-29] MEDS ORDERED: oxyCODONE HCL IR 5 MG TAB (IMMEDIATE RELEASE) PO PRN (04:54)
[2022-05-29 04:58] LABS: Anion Gap 5 (3-11); BUN Creatinine Ratio 18.8 (10-20); Blood Urea Nitrogen 13 mg/dl (6-23); Calcium 9.6 mg/dl (8.5-10.1); Carbon Dioxide 31 mmol/L (21-32); Chloride 102 mmol/L (98-107); Creatinine Clr Calc Pharmacy 155.3 ml/min; Est GFR (African American) > 150.0 ml/min; Est GFR (Non-African American) 134.8 ml/min; Glucose 96 mg/dl (70-99(Fasting)); Potassium 3.8 mmol/L (3.5-5.1); Sodium 138 mmol/L (136-145)
[2022-05-29] MEDS: ACETAMINOPHEN 325 MG TAB PO SCH ×4 (05:11→23:33)
[2022-05-29] MEDS: traMADol HCL 50 MG TABLET PO PRN ×4 (05:12→23:33)
[2022-05-29] MEDS: DAPTOmycin 400 MG in SYRINGE 0 ML IV SCH (05:37)
[2022-05-29] MEDS: BACLOFEN 20 MG TAB PO PRN ×4 (05:37→23:33)
[2022-05-29] MEDS ORDERED: BACLOFEN 20 MG TAB PO SCH (06:00)
[2022-05-29] MEDS: OXYBUTYNIN CHLORIDE 5 MG TAB PO SCH ×2 (09:47→20:51)
[2022-05-29] MEDS: GABAPENTIN 100 MG CAP PO SCH ×2 (09:47→20:50)
[2022-05-29] MEDS: ASCORBIC ACID 500 MG TAB PO SCH (09:47)
[2022-05-29] MEDS: LORazepam 2 MG/1 ML VIAL IV PRN (16:06)
[2022-05-29] MEDS: ENOXAPARIN INJ 40 MG/0.4 ML SYR SQ SCH (18:00)
[2022-05-29] MEDS: BACLOFEN 10 MG TAB ONE ×2 (18:02→18:09)
[2022-05-29] MEDS ORDERED: LORATADINE 10 MG TAB PO ONE (21:30)
[2022-05-29] MEDS: tiZANidine HCL 4 MG TABLET PO PRN (22:13)
[2022-05-30] MEDS: ACETAMINOPHEN 325 MG TAB PO SCH ×4 (05:22→23:46)
[2022-05-30] MEDS: traMADol HCL 50 MG TABLET PO PRN ×4 (05:22→23:46)
[2022-05-30] MEDS: BACLOFEN 20 MG TAB PO PRN ×2 (05:22→12:14)
[2022-05-30] MEDS: DAPTOmycin 400 MG in SYRINGE 0 ML IV SCH (06:19)
[2022-05-30] MEDS: LORazepam 2 MG/1 ML VIAL IV PRN (06:19)
[2022-05-30] MEDS: tiZANidine HCL 4 MG TABLET PO PRN (09:12)
[2022-05-30] MEDS: ASCORBIC ACID 500 MG TAB PO SCH (09:12)
[2022-05-30] MEDS: OXYBUTYNIN CHLORIDE 5 MG TAB PO SCH ×2 (09:12→20:33)
[2022-05-30] MEDS: ENOXAPARIN INJ 40 MG/0.4 ML SYR SQ SCH (09:13)
[2022-05-30] MEDS: GABAPENTIN 100 MG CAP PO SCH ×2 (09:37→20:33)
[2022-05-30] MEDS ORDERED: LORazepam 2 MG/1 ML VIAL IV PRN (14:00)
[2022-05-30] MEDS: LORazepam 0.5 MG TAB PO PRN ×2 (14:09→23:46)
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
[2022-05-30] MEDS: BACLOFEN 20 MG TAB PO SCH ×2 (18:02→23:46)
[2022-05-30] MEDS: BACLOFEN 10 MG TAB PO PRN ×2 (18:06→20:33)
[2022-05-31] MEDS: BACLOFEN 10 MG TAB PO PRN ×2 (03:38→16:13)
[2022-05-31] MEDS: BACLOFEN 20 MG TAB PO SCH (05:30)
[2022-05-31] MEDS: DAPTOmycin 400 MG in SYRINGE 0 ML IV SCH (05:30)
[2022-05-31] MEDS: ACETAMINOPHEN 325 MG TAB PO SCH ×3 (05:30→18:06)
[2022-05-31] MEDS: traMADol HCL 50 MG TABLET PO PRN ×3 (05:31→18:11)
[2022-05-31] MEDS: ASCORBIC ACID 500 MG TAB PO SCH (08:38)
[2022-05-31] MEDS: GABAPENTIN 100 MG CAP PO SCH ×2 (08:38→21:13)
[2022-05-31] MEDS: OXYBUTYNIN CHLORIDE 5 MG TAB PO SCH ×2 (08:38→21:13)
[2022-05-31] MEDS: LORazepam 0.5 MG TAB PO PRN ×2 (08:38→16:41)
[2022-05-31] MEDS: ENOXAPARIN INJ 40 MG/0.4 ML SYR SQ SCH (10:34)
[2022-05-31] MEDS: BACLOFEN 10 MG TAB PO SCH ×2 (12:23→18:06)
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
[2022-06-01] MEDS: traMADol HCL 50 MG TABLET PO PRN ×4 (00:44→20:31)
[2022-06-01] MEDS: LORazepam 0.5 MG TAB PO PRN ×3 (00:44→20:32)
[2022-06-01] MEDS: BACLOFEN 10 MG TAB PO SCH ×4 (00:45→17:09)
[2022-06-01] MEDS: ACETAMINOPHEN 325 MG TAB PO SCH ×4 (00:49→17:08)
[2022-06-01] MEDS: BACLOFEN 10 MG TAB PO PRN ×2 (04:35→09:17)
[2022-06-01] MEDS: DAPTOmycin 400 MG in SYRINGE 0 ML IV SCH (05:32)
[2022-06-01] MEDS: ASCORBIC ACID 500 MG TAB PO SCH (09:17)
[2022-06-01] MEDS: OXYBUTYNIN CHLORIDE 5 MG TAB PO SCH ×2 (09:17→20:31)
[2022-06-01] MEDS: ENOXAPARIN INJ 40 MG/0.4 ML SYR SQ SCH (09:17)
[2022-06-01] MEDS: GABAPENTIN 100 MG CAP PO SCH ×2 (09:19→22:44)
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
[2022-06-01] MEDS: hydrOXYzine HCl 10 MG TAB PO PRN (20:31)
[2022-06-02] MEDS: ACETAMINOPHEN 325 MG TAB PO SCH ×2 (00:18→05:51)
[2022-06-02] MEDS: BACLOFEN 10 MG TAB PO SCH ×5 (00:19→23:23)
[2022-06-02] MEDS: traMADol HCL 50 MG TABLET PO PRN ×3 (04:16→18:38)
[2022-06-02] MEDS: BACLOFEN 10 MG TAB PO PRN ×3 (04:17→20:33)
[2022-06-02] MEDS ORDERED: DOCUSATE SODIUM/SENNA 50/8.6MG TAB PO STA (04:18)
[2022-06-02] MEDS: POLYETHYLENE (MIRALAX) 17 GM PACK PO PRN ×2 (04:28→19:42)
[2022-06-02] MEDS: DAPTOmycin 400 MG in SYRINGE 0 ML IV SCH (05:53)
[2022-06-02] MEDS: LORazepam 0.5 MG TAB PO PRN ×3 (06:14→20:32)
[2022-06-02] MEDS: ASCORBIC ACID 500 MG TAB PO SCH (08:42)
[2022-06-02] MEDS: OXYBUTYNIN CHLORIDE 5 MG TAB PO SCH ×2 (08:43→20:34)
[2022-06-02] MEDS: GABAPENTIN 100 MG CAP PO SCH (08:43)
[2022-06-02] MEDS: ENOXAPARIN INJ 40 MG/0.4 ML SYR SQ SCH (08:43)
[2022-06-02] MEDS ORDERED: KETOROLAC TROMETHAMINE 15 MG/ML VIAL IV PRN (11:15)
[2022-06-02] MEDS: ACETAMINOPHEN 500 MG TAB PO PRN (14:50)
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
[2022-06-02] MEDS: GABAPENTIN 300 MG CAP PO SCH (20:33)
[2022-06-02] MEDS ORDERED: LACTULOSE SYRUP 30 GM/45 ML UDP PO STA (22:59)
[2022-06-02] MEDS: DOCUSATE SODIUM/SENNA 50/8.6MG TAB PO SCH (23:23)
[2022-06-03] MEDS: BACLOFEN 10 MG TAB PO SCH ×3 (05:15→17:58)
[2022-06-03] MEDS: traMADol HCL 50 MG TABLET PO PRN ×3 (05:15→17:59)
[2022-06-03] MEDS: DAPTOmycin 400 MG in SYRINGE 0 ML IV SCH (05:15)
[2022-06-03] MEDS: OXYBUTYNIN CHLORIDE 5 MG TAB PO SCH ×2 (08:33→20:41)
[2022-06-03] MEDS: ASCORBIC ACID 500 MG TAB PO SCH (08:34)
[2022-06-03] MEDS: DOCUSATE SODIUM/SENNA 50/8.6MG TAB PO SCH ×2 (08:34→20:43)
[2022-06-03] MEDS: ENOXAPARIN INJ 40 MG/0.4 ML SYR SQ SCH (08:35)
[2022-06-03] MEDS: GABAPENTIN 300 MG CAP PO SCH ×3 (08:35→20:41)
[2022-06-03] MEDS: DANTROLENE SODIUM 25 MG CAP PO SCH (08:36)
[2022-06-03] MEDS: LORazepam 0.5 MG TAB PO PRN ×2 (08:39→16:36)
[2022-06-03] MEDS ORDERED: DOCUSATE SODIUM/SENNA 50/8.6MG TAB PO SCH (09:00)
[2022-06-03] MEDS ORDERED: DULoxetine HCL 30 MG CAP PO SCH (09:00)
[2022-06-03] MEDS: ACETAMINOPHEN 500 MG TAB PO PRN ×2 (11:46→20:40)
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
[2022-06-03] MEDS: BACLOFEN 10 MG TAB PO PRN (16:37)
[2022-06-03] MEDS: LORazepam 1 MG TAB PO PRN (20:40)
[2022-06-03] MEDS: DULoxetine HCL 30 MG CAP PO SCH (20:41)
[2022-06-04] MEDS: BACLOFEN 10 MG TAB PO SCH ×5 (00:01→23:59)
[2022-06-04] MEDS: traMADol HCL 50 MG TABLET PO PRN ×3 (00:01→17:46)
[2022-06-04] MEDS: DAPTOmycin 400 MG in SYRINGE 0 ML IV SCH (05:33)
[2022-06-04 06:55] LABS: Mean Corpuscular Hemoglobin 27.7 pg (25.0-34.0); Mean Corpuscular Hgb Conc 33.3 g/dL (32.0-36.0); Mean Corpuscular Volume 83.2 fL (80.0-100.0); Mean Platelet Volume 9.2 fL (9.4-12.4); Platelet Count 457 K/uL (130-400); RDW Coefficient of Variation 14.6 % (11.5-14.5); Red Blood Count 5.05 M/uL (4.70-6.10); White Blood Count 9.98 K/ul (4.8-10.8)
[2022-06-04 07:22] LABS: Albumin Globulin Ratio 1.4 (0.9-2); Albumin Level 4.7 gm/dl (3.4-5.0); BUN Creatinine Ratio 18.8 (10-20); Bilirubin,Total 0.4 mg/dl (0.2-1.0); Calcium 10.5 mg/dl (8.5-10.1); Creatinine Clr Calc Pharmacy 130.7 ml/min; Est GFR (Non-African American) 126.8 ml/min; Globulin 3.3 gm/dl (2.5-4.0); Potassium 4.2 mmol/L (3.5-5.1)
[2022-06-04] MEDS: ENOXAPARIN INJ 40 MG/0.4 ML SYR SQ SCH (08:34)
[2022-06-04] MEDS: GABAPENTIN 300 MG CAP PO SCH ×3 (08:35→20:42)
[2022-06-04] MEDS: DANTROLENE SODIUM 25 MG CAP PO SCH (08:36)
[2022-06-04] MEDS: DOCUSATE SODIUM/SENNA 50/8.6MG TAB PO SCH ×2 (08:36→20:43)
[2022-06-04] MEDS: ASCORBIC ACID 500 MG TAB PO SCH (08:36)
[2022-06-04] MEDS: OXYBUTYNIN CHLORIDE 5 MG TAB PO SCH ×2 (08:39→20:43)
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
[2022-06-04] MEDS: LORazepam 1 MG TAB PO PRN (20:41)
[2022-06-04] MEDS: DULoxetine HCL 30 MG CAP PO SCH (20:44)
[2022-06-04] MEDS: BACLOFEN 10 MG TAB PO PRN (21:55)
[2022-06-05] MEDS: traMADol HCL 50 MG TABLET PO PRN ×3 (00:03→15:33)
[2022-06-05] MEDS: DAPTOmycin 400 MG in SYRINGE 0 ML IV SCH (04:59)
[2022-06-05] MEDS: BACLOFEN 10 MG TAB PO SCH ×4 (05:00→23:57)
[2022-06-05] MEDS: DANTROLENE SODIUM 25 MG CAP PO SCH ×4 (08:26→21:18)
[2022-06-05] MEDS: ASCORBIC ACID 500 MG TAB PO SCH (08:26)
[2022-06-05] MEDS: GABAPENTIN 300 MG CAP PO SCH ×3 (08:26→21:19)
[2022-06-05] MEDS: DOCUSATE SODIUM/SENNA 50/8.6MG TAB PO SCH ×2 (08:27→21:18)
[2022-06-05] MEDS: BACLOFEN 10 MG TAB PO PRN ×2 (08:27→15:33)
[2022-06-05] MEDS: ENOXAPARIN INJ 40 MG/0.4 ML SYR SQ SCH (08:27)
[2022-06-05] MEDS: OXYBUTYNIN CHLORIDE 5 MG TAB PO SCH ×2 (08:27→21:18)
--- NOTE | 2022-06-05 09:04 | Pain Management Progress Note ---
Date of Service June 05, 2022 Assessment & Plan (1) Chronic paraplegia: (2) Sacral decubitus ulcer: (3) Sacral osteomyelitis: (4) Spinal cord injury at T1-T6 level: (5) Spasticity: Plan 1. Maintain gabapentin 300 mg 3 times daily. Consider further titration to 600 mg 3 times daily pending response. 2. Will progress duloxetine to 60 mg nightly. Side effects versus benefits reviewed. 3. Will progress dantrolene to 25 mg 3 times daily. Recommend monitoring of LFTs in the next 4-6 weeks with any ongoing utilization of dantrolene 4. Patient continues to be a poor candidate for consideration of intrathecal baclofen pump at this time due to his sacral decubitus ulceration, osteomyelitis and colostomy presents in the bilateral lower abdomen. Pain service will sign off on patient at this time. Thank you for allowing us to participate in the care of Mr. Yuan. Admission and Anticipated Discharge Date Admission Date: May 29, 2022 Subjective Mr. Yuan reports that his pain control has been improved with initiation of duloxetine. He is reporting diminished utilization of tramadol as a byproduct of initiation of the medication. He is tolerating medication without notable side effects. He has not noticed any significant change in his spasm with initiation of dantrolene. He appears to be tolerating dantrolene without notable side effects. Patient indicates that his pain is minimal at this time at a 3/10. His pain can escalate to a 6-7/10 at its worst over the past few days. Patient denies change in location or characteristic of his pain complaints. His pain remains nondermatomal affecting his back, abdomen and lower extremities with aching and burning characteristics. He indicates diminished frequency and severity of pain compared to earlier this week. He reports there is plan for transfer to rehab facility either in [place] or [place] and he is awaiting placement at this time. Patient has no further constitution complaints. Plan of care discussed with Dr. Ambar Bland. Physical Exam Physical Exam: General: Patient sleeping upon entering the room. He was easily arousable. Speech and thought process appropriate. Mood and affect flat. Cognition intact. Abdomen: Soft and nondistended. Colostomy bag present in the left and right lower quadrant. Lower extremities: No breakthrough spasticity appreciated throughout today's visit. AFO type splint/boots remain intact in the bilateral lower extremities. Patient has lack of sensation of the lower extremities and no spontaneous movement. Neurologic: Cranial nerves grossly intact.
[2022-06-05] MEDS: ACETAMINOPHEN 500 MG TAB PO PRN (12:28)
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
[2022-06-05] MEDS: LORazepam 1 MG TAB PO PRN (15:33)
[2022-06-05] MEDS: DULoxetine HCL 60 MG CAP PO SCH (21:19)
[2022-06-06] MEDS: traMADol HCL 50 MG TABLET PO PRN ×2 (04:34→21:25)
[2022-06-06] MEDS: ACETAMINOPHEN 500 MG TAB PO PRN ×3 (04:36→21:25)
[2022-06-06] MEDS: DAPTOmycin 400 MG in SYRINGE 0 ML IV SCH (04:39)
[2022-06-06] MEDS: BACLOFEN 10 MG TAB PO SCH ×3 (04:44→17:14)
[2022-06-06] MEDS: DOCUSATE SODIUM/SENNA 50/8.6MG TAB PO SCH ×2 (07:19→21:28)
[2022-06-06] MEDS: LORazepam 1 MG TAB PO PRN (07:23)
[2022-06-06] MEDS: BACLOFEN 10 MG TAB PO PRN ×3 (07:23→21:26)
[2022-06-06] MEDS: ASCORBIC ACID 500 MG TAB PO SCH (07:24)
[2022-06-06] MEDS: ENOXAPARIN INJ 40 MG/0.4 ML SYR SQ SCH (07:25)
[2022-06-06] MEDS: DANTROLENE SODIUM 25 MG CAP PO SCH ×3 (07:25→21:28)
[2022-06-06] MEDS: GABAPENTIN 300 MG CAP PO SCH ×3 (07:25→21:28)
[2022-06-06] MEDS: OXYBUTYNIN CHLORIDE 5 MG TAB PO SCH ×2 (07:26→21:28)
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
[2022-06-06] MEDS: POLYETHYLENE (MIRALAX) 17 GM PACK PO PRN (17:14)
[2022-06-06] MEDS: DULoxetine HCL 60 MG CAP PO SCH (21:28)
[2022-06-07] MEDS: DAPTOmycin 400 MG in SYRINGE 0 ML IV SCH (05:19)
[2022-06-07] MEDS: BACLOFEN 10 MG TAB PO SCH ×4 (05:19→17:23)
[2022-06-07] MEDS: traMADol HCL 50 MG TABLET PO PRN ×2 (05:53→19:47)
[2022-06-07] MEDS: OXYBUTYNIN CHLORIDE 5 MG TAB PO SCH ×2 (09:16→19:47)
[2022-06-07] MEDS: DOCUSATE SODIUM/SENNA 50/8.6MG TAB PO SCH ×2 (09:18→22:16)
[2022-06-07] MEDS: GABAPENTIN 300 MG CAP PO SCH ×3 (09:18→19:46)
[2022-06-07] MEDS: DANTROLENE SODIUM 25 MG CAP PO SCH ×3 (09:19→19:47)
[2022-06-07] MEDS: ASCORBIC ACID 500 MG TAB PO SCH (09:19)
[2022-06-07] MEDS: ENOXAPARIN INJ 40 MG/0.4 ML SYR SQ SCH (09:20)
[2022-06-07] MEDS: LORazepam 1 MG TAB PO PRN (10:53)
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
[2022-06-07] MEDS: DULoxetine HCL 60 MG CAP PO SCH (19:46)
[2022-06-07] MEDS: BACLOFEN 10 MG TAB PO PRN (19:46)
[2022-06-07] MEDS: ACETAMINOPHEN 500 MG TAB PO PRN (19:47)
[2022-06-08] MEDS: BACLOFEN 10 MG TAB PO SCH ×5 (00:19→21:53)
[2022-06-08] MEDS: ACETAMINOPHEN 500 MG TAB PO PRN (05:37)
[2022-06-08] MEDS: traMADol HCL 50 MG TABLET PO PRN ×2 (05:38→12:44)
[2022-06-08] MEDS: DAPTOmycin 400 MG in SYRINGE 0 ML IV SCH (05:38)
[2022-06-08] MEDS: ASCORBIC ACID 500 MG TAB PO SCH (09:30)
[2022-06-08] MEDS: OXYBUTYNIN CHLORIDE 5 MG TAB PO SCH ×2 (09:30→21:54)
[2022-06-08] MEDS: DANTROLENE SODIUM 25 MG CAP PO SCH ×3 (09:30→21:54)
[2022-06-08] MEDS: ENOXAPARIN INJ 40 MG/0.4 ML SYR SQ SCH (09:30)
[2022-06-08] MEDS: GABAPENTIN 300 MG CAP PO SCH ×3 (09:30→21:54)
[2022-06-08] MEDS: DOCUSATE SODIUM/SENNA 50/8.6MG TAB PO SCH ×2 (09:31→21:54)
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
[2022-06-08] MEDS: BACLOFEN 10 MG TAB PO PRN (15:08)
[2022-06-08] MEDS: POLYETHYLENE (MIRALAX) 17 GM PACK PO PRN (15:13)
[2022-06-08] MEDS: LORazepam 1 MG TAB PO PRN (18:13)
[2022-06-08] MEDS ORDERED: Nursing to Pharmacy Communication SCH (18:15)
[2022-06-08] MEDS: DULoxetine HCL 60 MG CAP PO SCH (21:54)
[2022-06-09] MEDS: BACLOFEN 10 MG TAB PO SCH ×4 (03:32→21:15)
[2022-06-09] MEDS: DAPTOmycin 400 MG in SYRINGE 0 ML IV SCH (05:51)
[2022-06-09] MEDS: traMADol HCL 50 MG TABLET PO PRN ×3 (05:58→21:20)
[2022-06-09] MEDS: ASCORBIC ACID 500 MG TAB PO SCH (08:55)
[2022-06-09] MEDS: GABAPENTIN 300 MG CAP PO SCH ×3 (08:55→21:15)
[2022-06-09] MEDS: DANTROLENE SODIUM 25 MG CAP PO SCH ×3 (08:56→21:20)
[2022-06-09] MEDS: ENOXAPARIN INJ 40 MG/0.4 ML SYR SQ SCH (08:56)
[2022-06-09] MEDS: OXYBUTYNIN CHLORIDE 5 MG TAB PO SCH ×2 (08:56→21:14)
[2022-06-09] MEDS: DOCUSATE SODIUM/SENNA 50/8.6MG TAB PO SCH ×2 (08:58→21:15)
[2022-06-09] MEDS: ACETAMINOPHEN 500 MG TAB PO PRN (11:48)
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
[2022-06-09] MEDS: LORazepam 1 MG TAB PO PRN (17:41)
[2022-06-09] MEDS: DULoxetine HCL 60 MG CAP PO SCH (21:14)
[2022-06-10] MEDS: BACLOFEN 10 MG TAB PO SCH ×4 (04:30→21:03)
[2022-06-10] MEDS: DAPTOmycin 400 MG in SYRINGE 0 ML IV SCH (04:31)
[2022-06-10] MEDS: traMADol HCL 50 MG TABLET PO PRN ×3 (05:48→22:22)
[2022-06-10] MEDS: ASCORBIC ACID 500 MG TAB PO SCH (09:24)
[2022-06-10] MEDS: DOCUSATE SODIUM/SENNA 50/8.6MG TAB PO SCH ×2 (09:25→21:03)
[2022-06-10] MEDS: DANTROLENE SODIUM 25 MG CAP PO SCH ×3 (09:25→21:02)
[2022-06-10] MEDS: ENOXAPARIN INJ 40 MG/0.4 ML SYR SQ SCH (09:26)
[2022-06-10] MEDS: GABAPENTIN 300 MG CAP PO SCH ×3 (09:26→21:04)
[2022-06-10] MEDS: OXYBUTYNIN CHLORIDE 5 MG TAB PO SCH ×2 (09:26→21:03)
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
[2022-06-10] MEDS: POLYETHYLENE (MIRALAX) 17 GM PACK PO PRN (12:55)
[2022-06-10] MEDS: DULoxetine HCL 60 MG CAP PO SCH (21:03)
[2022-06-10] MEDS: LORazepam 1 MG TAB PO PRN (23:55)
[2022-06-11] MEDS: traMADol HCL 50 MG TABLET PO PRN ×3 (04:35→21:35)
[2022-06-11] MEDS: BACLOFEN 10 MG TAB PO SCH ×4 (04:35→21:37)
[2022-06-11] MEDS: DAPTOmycin 400 MG in SYRINGE 0 ML IV SCH (04:35)
[2022-06-11 08:59] LABS: Hematocrit (blood only) 37.4 % (42.0-52.0); Hemoglobin 12.3 g/dl (14.0-18.0); Mean Corpuscular Hemoglobin 28.1 pg (25.0-34.0); Mean Corpuscular Hgb Conc 32.9 g/dL (32.0-36.0); Mean Corpuscular Volume 85.6 fL (80.0-100.0); Mean Platelet Volume 8.7 fL (9.4-12.4); Platelet Count 479 K/uL (130-400); RDW Coefficient of Variation 13.9 % (11.5-14.5); RDW Standard Deviation 43.3 fL (36.4-46.3); Red Blood Count 4.37 M/uL (4.70-6.10); White Blood Count 9.23 K/ul (4.8-10.8)
[2022-06-11 09:20] LABS: Alanine Aminotransferase 31 U/L (7-52); Albumin Globulin Ratio 1.1 (0.9-2); Albumin Level 4.1 gm/dl (3.4-5.0); Alkaline Phosphatase 82 U/L (34-104); Anion Gap 6 (3-11); Aspartate Aminotransferase 17 U/L (13-39); BUN Creatinine Ratio 27.8 (10-20); Bilirubin,Total 0.3 mg/dl (0.2-1.0); Blood Urea Nitrogen 20 mg/dl (6-23); Calcium 9.7 mg/dl (8.5-10.1); Carbon Dioxide 32 mmol/L (21-32); Chloride 101 mmol/L (98-107); Creatine Kinase 50 U/L (30-223); Creatinine Clr Calc Pharmacy 145.2 ml/min; Est GFR (African American) > 150.0 ml/min; Est GFR (Non-African American) 132.4 ml/min; Globulin 3.6 gm/dl (2.5-4.0); Glucose 94 mg/dl (70-99(Fasting)); Potassium 4.1 mmol/L (3.5-5.1); Sodium 139 mmol/L (136-145); Total Protein 7.7 gm/dl (6.0-8.3)
[2022-06-11] MEDS: GABAPENTIN 300 MG CAP PO SCH ×3 (09:23→21:37)
[2022-06-11] MEDS: ASCORBIC ACID 500 MG TAB PO SCH (09:23)
[2022-06-11] MEDS: ENOXAPARIN INJ 40 MG/0.4 ML SYR SQ SCH (09:23)
[2022-06-11] MEDS: DOCUSATE SODIUM/SENNA 50/8.6MG TAB PO SCH ×2 (09:24→21:38)
[2022-06-11] MEDS: DANTROLENE SODIUM 25 MG CAP PO SCH ×3 (09:24→21:36)
[2022-06-11] MEDS: OXYBUTYNIN CHLORIDE 5 MG TAB PO SCH ×2 (09:24→21:36)
[2022-06-11] MEDS: POLYETHYLENE (MIRALAX) 17 GM PACK PO PRN (09:51)
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
[2022-06-11] MEDS: LORazepam 1 MG TAB PO PRN (18:01)
[2022-06-11] MEDS: DULoxetine HCL 60 MG CAP PO SCH (21:36)
[2022-06-12] MEDS: BACLOFEN 10 MG TAB PO SCH ×4 (03:03→20:05)
[2022-06-12] MEDS: DAPTOmycin 400 MG in SYRINGE 0 ML IV SCH (06:06)
[2022-06-12] MEDS: DANTROLENE SODIUM 25 MG CAP PO SCH ×3 (09:12→20:04)
[2022-06-12] MEDS: OXYBUTYNIN CHLORIDE 5 MG TAB PO SCH ×2 (09:12→20:06)
[2022-06-12] MEDS: GABAPENTIN 300 MG CAP PO SCH ×3 (09:13→20:05)
[2022-06-12] MEDS: ASCORBIC ACID 500 MG TAB PO SCH (09:13)
[2022-06-12] MEDS: ENOXAPARIN INJ 40 MG/0.4 ML SYR SQ SCH (09:13)
[2022-06-12] MEDS: DOCUSATE SODIUM/SENNA 50/8.6MG TAB PO SCH ×2 (09:14→20:04)
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
[2022-06-12] MEDS: traMADol HCL 50 MG TABLET PO PRN (20:03)
[2022-06-12] MEDS: DULoxetine HCL 60 MG CAP PO SCH (20:05)
[2022-06-12] MEDS: ACETAMINOPHEN 500 MG TAB PO PRN (20:09)
[2022-06-13] MEDS: BACLOFEN 10 MG TAB PO SCH ×4 (04:11→20:50)
[2022-06-13] MEDS: traMADol HCL 50 MG TABLET PO PRN ×3 (04:13→20:59)
[2022-06-13] MEDS: DAPTOmycin 400 MG in SYRINGE 0 ML IV SCH (04:45)
[2022-06-13] MEDS: DOCUSATE SODIUM/SENNA 50/8.6MG TAB PO SCH ×2 (07:31→20:51)
[2022-06-13] MEDS: ENOXAPARIN INJ 40 MG/0.4 ML SYR SQ SCH (08:14)
[2022-06-13] MEDS: DANTROLENE SODIUM 25 MG CAP PO SCH ×3 (08:14→20:52)
[2022-06-13] MEDS: OXYBUTYNIN CHLORIDE 5 MG TAB PO SCH ×2 (08:14→20:51)
[2022-06-13] MEDS: ASCORBIC ACID 500 MG TAB PO SCH (08:14)
[2022-06-13] MEDS: GABAPENTIN 300 MG CAP PO SCH ×3 (08:14→20:51)
[2022-06-13] MEDS: LORazepam 1 MG TAB PO PRN (09:49)
[2022-06-13] MEDS: ACETAMINOPHEN 500 MG TAB PO PRN ×2 (13:21→21:00)
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
[2022-06-13] MEDS: DULoxetine HCL 60 MG CAP PO SCH (20:49)
[2022-06-13] MEDS: POLYETHYLENE (MIRALAX) 17 GM PACK PO PRN (20:52)
[2022-06-14] MEDS: BACLOFEN 10 MG TAB PO SCH ×4 (03:20→21:09)
[2022-06-14] MEDS: DAPTOmycin 400 MG in SYRINGE 0 ML IV SCH (05:59)
[2022-06-14] MEDS: LORazepam 1 MG TAB PO PRN (06:05)
[2022-06-14] MEDS: DOCUSATE SODIUM/SENNA 50/8.6MG TAB PO SCH ×2 (09:28→21:07)
[2022-06-14] MEDS: OXYBUTYNIN CHLORIDE 5 MG TAB PO SCH ×2 (09:29→21:11)
[2022-06-14] MEDS: ENOXAPARIN INJ 40 MG/0.4 ML SYR SQ SCH (09:29)
[2022-06-14] MEDS: ASCORBIC ACID 500 MG TAB PO SCH (09:29)
[2022-06-14] MEDS: DANTROLENE SODIUM 25 MG CAP PO SCH ×3 (09:29→21:10)
[2022-06-14] MEDS: GABAPENTIN 300 MG CAP PO SCH ×3 (09:29→21:11)
[2022-06-14] MEDS: traMADol HCL 50 MG TABLET PO PRN ×2 (09:33→17:05)
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
[2022-06-14] MEDS: DULoxetine HCL 60 MG CAP PO SCH (21:11)
[2022-06-15] MEDS: BACLOFEN 10 MG TAB PO SCH ×5 (03:32→21:30)
[2022-06-15] MEDS: traMADol HCL 50 MG TABLET PO PRN ×3 (03:32→21:30)
[2022-06-15] MEDS: DAPTOmycin 400 MG in SYRINGE 0 ML IV SCH (05:34)
[2022-06-15] MEDS: DOCUSATE SODIUM/SENNA 50/8.6MG TAB PO SCH ×2 (09:17→21:31)
[2022-06-15] MEDS: GABAPENTIN 300 MG CAP PO SCH ×4 (09:25→21:33)
[2022-06-15] MEDS: ASCORBIC ACID 500 MG TAB PO SCH (09:26)
[2022-06-15] MEDS: ENOXAPARIN INJ 40 MG/0.4 ML SYR SQ SCH (09:26)
[2022-06-15] MEDS: DANTROLENE SODIUM 25 MG CAP PO SCH ×3 (09:26→21:34)
[2022-06-15] MEDS: OXYBUTYNIN CHLORIDE 5 MG TAB PO SCH ×2 (09:26→21:32)
[2022-06-15] MEDS: LORazepam 1 MG TAB PO PRN (09:29)
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
[2022-06-15] MEDS: hydrOXYzine HCl 10 MG TAB PO PRN (21:32)
[2022-06-15] MEDS: DULoxetine HCL 60 MG CAP PO SCH (21:32)
[2022-06-16] MEDS: BACLOFEN 10 MG TAB PO SCH ×4 (03:19→20:42)
[2022-06-16] MEDS: traMADol HCL 50 MG TABLET PO PRN ×3 (03:20→20:41)
[2022-06-16] MEDS: DAPTOmycin 400 MG in SYRINGE 0 ML IV SCH (05:27)
[2022-06-16] MEDS: DOCUSATE SODIUM/SENNA 50/8.6MG TAB PO SCH ×2 (08:31→20:44)
[2022-06-16] MEDS: DANTROLENE SODIUM 25 MG CAP PO SCH ×3 (08:32→20:44)
[2022-06-16] MEDS: ASCORBIC ACID 500 MG TAB PO SCH (08:32)
[2022-06-16] MEDS: ENOXAPARIN INJ 40 MG/0.4 ML SYR SQ SCH (08:33)
[2022-06-16] MEDS: OXYBUTYNIN CHLORIDE 5 MG TAB PO SCH ×2 (08:33→20:42)
[2022-06-16] MEDS: GABAPENTIN 300 MG CAP PO SCH ×3 (08:33→20:42)
[2022-06-16] MEDS: ACETAMINOPHEN 500 MG TAB PO PRN (08:36)
[2022-06-16] MEDS: LORazepam 1 MG TAB PO PRN (12:01)
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
[2022-06-16] MEDS: DULoxetine HCL 60 MG CAP PO SCH (20:43)
[2022-06-17] MEDS: BACLOFEN 10 MG TAB PO SCH ×3 (04:56→15:11)
[2022-06-17] MEDS: traMADol HCL 50 MG TABLET PO PRN ×3 (04:57→21:47)
[2022-06-17] MEDS: DAPTOmycin 400 MG in SYRINGE 0 ML IV SCH (04:57)
[2022-06-17] MEDS: LORazepam 1 MG TAB PO PRN (08:56)
[2022-06-17] MEDS: hydrOXYzine HCl 10 MG TAB PO PRN (08:56)
[2022-06-17] MEDS: ASCORBIC ACID 500 MG TAB PO SCH (08:57)
[2022-06-17] MEDS: ENOXAPARIN INJ 40 MG/0.4 ML SYR SQ SCH (08:58)
[2022-06-17] MEDS: DANTROLENE SODIUM 25 MG CAP PO SCH ×3 (08:58→21:45)
[2022-06-17] MEDS: DOCUSATE SODIUM/SENNA 50/8.6MG TAB PO SCH ×2 (08:58→21:41)
[2022-06-17] MEDS: OXYBUTYNIN CHLORIDE 5 MG TAB PO SCH ×2 (08:59→21:46)
[2022-06-17] MEDS: GABAPENTIN 300 MG CAP PO SCH ×3 (08:59→21:46)
[2022-06-17] MEDS: BACLOFEN 10 MG TAB PO PRN (11:16)
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
[2022-06-17] MEDS: BACLOFEN 20 MG TAB PO SCH (21:45)
[2022-06-17] MEDS: DULoxetine HCL 60 MG CAP PO SCH (21:46)
[2022-06-18] MEDS: BACLOFEN 20 MG TAB PO SCH ×4 (02:50→21:14)
[2022-06-18] MEDS: LORazepam 1 MG TAB PO PRN (07:23)
[2022-06-18] MEDS: DAPTOmycin 400 MG in SYRINGE 0 ML IV SCH (07:23)
[2022-06-18] MEDS: GABAPENTIN 300 MG CAP PO SCH ×3 (09:10→21:15)
[2022-06-18] MEDS: DOCUSATE SODIUM/SENNA 50/8.6MG TAB PO SCH ×2 (09:11→21:15)
[2022-06-18] MEDS: ASCORBIC ACID 500 MG TAB PO SCH (09:11)
[2022-06-18] MEDS: ENOXAPARIN INJ 40 MG/0.4 ML SYR SQ SCH (09:11)
[2022-06-18] MEDS: DANTROLENE SODIUM 25 MG CAP PO SCH ×3 (09:12→21:14)
[2022-06-18] MEDS: OXYBUTYNIN CHLORIDE 5 MG TAB PO SCH ×2 (09:12→21:15)
[2022-06-18] MEDS: traMADol HCL 50 MG TABLET PO PRN ×3 (09:17→21:13)
[2022-06-18 09:34] LABS: Hemoglobin 14.4 g/dl (14.0-18.0); Mean Corpuscular Hemoglobin 28.2 pg (25.0-34.0); Mean Corpuscular Hgb Conc 34.3 g/dL (32.0-36.0); Mean Corpuscular Volume 82.4 fL (80.0-100.0); Mean Platelet Volume 8.6 fL (9.4-12.4); Platelet Count 572 K/uL (130-400); RDW Standard Deviation 41.1 fL (36.4-46.3); White Blood Count 8.06 K/ul (4.8-10.8)
[2022-06-18 10:53] LABS: Albumin Globulin Ratio 1.1 (0.9-2); Albumin Level 4.3 gm/dl (3.4-5.0); BUN Creatinine Ratio 26.5 (10-20); Bilirubin,Total 0.4 mg/dl (0.2-1.0); Calcium 10.2 mg/dl (8.5-10.1); Est GFR (African American) 144.8 ml/min; Est GFR (Non-African American) 124.9 ml/min; Potassium 4.1 mmol/L (3.5-5.1); Total Protein 8.3 gm/dl (6.0-8.3)
[2022-06-18] MEDS: BACLOFEN 10 MG TAB PO PRN ×2 (13:30→19:45)
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
[2022-06-18] MEDS: DULoxetine HCL 60 MG CAP PO SCH (21:14)
[2022-06-19] MEDS: BACLOFEN 20 MG TAB PO SCH ×4 (03:00→21:00)
[2022-06-19] MEDS: DAPTOmycin 400 MG in SYRINGE 0 ML IV SCH (06:05)
[2022-06-19] MEDS: DOCUSATE SODIUM/SENNA 50/8.6MG TAB PO SCH ×2 (07:50→20:59)
[2022-06-19] MEDS: LORazepam 1 MG TAB PO PRN (07:50)
[2022-06-19] MEDS: ENOXAPARIN INJ 40 MG/0.4 ML SYR SQ SCH (09:09)
[2022-06-19] MEDS: ASCORBIC ACID 500 MG TAB PO SCH (09:09)
[2022-06-19] MEDS: GABAPENTIN 300 MG CAP PO SCH ×3 (09:11→20:59)
[2022-06-19] MEDS: OXYBUTYNIN CHLORIDE 5 MG TAB PO SCH ×2 (09:11→20:59)
[2022-06-19] MEDS: DANTROLENE SODIUM 25 MG CAP PO SCH (09:11)
[2022-06-19] MEDS: traMADol HCL 50 MG TABLET PO PRN ×2 (13:22→21:07)
[2022-06-19] MEDS: ACETAMINOPHEN 500 MG TAB PO PRN (15:15)
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
[2022-06-19] MEDS: DULoxetine HCL 60 MG CAP PO SCH (20:59)
[2022-06-19] MEDS ORDERED: DANTROLENE SODIUM 25 MG CAP PO SCH (21:00)
[2022-06-20] MEDS: BACLOFEN 20 MG TAB PO SCH ×2 (03:15→09:31)
[2022-06-20] MEDS: DAPTOmycin 400 MG in SYRINGE 0 ML IV SCH (05:56)
[2022-06-20 06:45] LABS: Albumin Level 4.9 gm/dl (3.4-5.0); Bilirubin Direct 0.1 mg/dl (0-0.2); Bilirubin,Total 0.5 mg/dl (0.2-1.0); Total Protein 8.6 gm/dl (6.0-8.3)
[2022-06-20] MEDS: ASCORBIC ACID 500 MG TAB PO SCH (09:06)
[2022-06-20] MEDS: OXYBUTYNIN CHLORIDE 5 MG TAB PO SCH ×2 (09:06→21:07)
[2022-06-20] MEDS: DOCUSATE SODIUM/SENNA 50/8.6MG TAB PO SCH ×2 (09:07→20:22)
[2022-06-20] MEDS: GABAPENTIN 300 MG CAP PO SCH ×3 (09:07→21:07)
[2022-06-20] MEDS: ENOXAPARIN INJ 40 MG/0.4 ML SYR SQ SCH (09:08)
--- NOTE | 2022-06-20 09:09 | Gastroenterology Progress Note ---
Date of Service June 20, 2022 Assessment & Plan Admission and Anticipated Discharge Date Admission Date: May 29, 2022 Results & Data ([facility]) Vital Signs (Past 12 Hours) Vital Signs Temp Pulse Resp BP Pulse Ox O2 Del Method 06/20/22 06:43 37.0 C 86 16 97/67 L 100 Room Air 06/19/22 21:07 36.7 C 100 H 18 105/67 98 Room Air
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
[2022-06-20] MEDS: BACLOFEN 10 MG TAB PO SCH ×3 (09:29→20:20)
--- NOTE | 2022-06-20 12:34 | Ultrasound Report ---
ABDOMINAL ULTRASOUND, RIGHT UPPER QUADRANT HISTORY: elevate LFT. COMPARISON: Abdomen and pelvis CT 05/20/2022. FINDINGS: Pancreas: The pancreas demonstrates a normal echotexture. Liver: A few echogenic foci within the liver which are indeterminate but could represent artifact. Pn eumobilia or portal venous gas could also have a similar appearance. Gallbladder: No gallbladder wall thickening. No gallstones. CBD: 3 mm. Right kidney: No hydronephrosis. IMPRESSION: A few echogenic foci within the liver which are indeterminate but could represent artifact. Pneumobil ia or portal venous gas could also have a similar appearance. This could be confirmed with follow-up abdominal CT if clinically warranted. ACT 112: Negative or not required by law. Abdomen Limited Electronically signed by: Arnulfo Gonzalez M.D. 06/20/2022 12:32 PM
[2022-06-20] MEDS: LORazepam 1 MG TAB PO PRN (13:04)
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
[2022-06-20] MEDS: traMADol HCL 50 MG TABLET PO PRN (20:18)
[2022-06-20] MEDS: DULoxetine HCL 60 MG CAP PO SCH (21:06)
[2022-06-21] MEDS: BACLOFEN 10 MG TAB PO SCH ×4 (03:14→20:22)
[2022-06-21] MEDS: DAPTOmycin 400 MG in SYRINGE 0 ML IV SCH (06:28)
[2022-06-21] MEDS: DOCUSATE SODIUM/SENNA 50/8.6MG TAB PO SCH ×2 (08:56→20:29)
[2022-06-21] MEDS: GABAPENTIN 300 MG CAP PO SCH ×3 (08:59→20:21)
[2022-06-21] MEDS: OXYBUTYNIN CHLORIDE 5 MG TAB PO SCH ×2 (09:00→20:21)
[2022-06-21] MEDS: ASCORBIC ACID 500 MG TAB PO SCH (09:01)
[2022-06-21] MEDS: ENOXAPARIN INJ 40 MG/0.4 ML SYR SQ SCH (09:01)
[2022-06-21] MEDS: BACLOFEN 10 MG TAB PO PRN ×2 (09:02→14:29)
[2022-06-21] MEDS: traMADol HCL 50 MG TABLET PO PRN ×3 (09:02→20:23)
[2022-06-21 09:39] LABS: Albumin Globulin Ratio 1.4 (0.9-2); BUN Creatinine Ratio 22.5 (10-20); Bilirubin,Total 0.5 mg/dl (0.2-1.0); Calcium 10.7 mg/dl (8.5-10.1); Creatinine Clr Calc Pharmacy 130.7 ml/min; Est GFR (Non-African American) 126.8 ml/min; Globulin 3.7 gm/dl (2.5-4.0); Potassium 3.5 mmol/L (3.5-5.1); Total Protein 8.7 gm/dl (6.0-8.3)
[2022-06-21 09:58] LABS: Ferritin 26.8 ng/ml (8-388)
[2022-06-21 12:58] LABS: Appearance Urine Clear (Clear); Bacteria Urine Automated 3+ (Negative); Bilirubin Urine Negative (Negative); Blood Urine Negative (Negative); Cast Urine Automated 0 /lpf (0-5); Color Urine Yellow; Glucose Urine UA Negative (Negative); Ketones Urine Negative (Negative); Leukocyte Esterase Urine Trace (Negative); Nitrite Urine Positive (Negative); Protein Urine Negative (Negative); RBC Urine Automated 0-4 /hpf (0-4); Specific Gravity Urine 1.006 (1.000-1.030); Urobilinogen Urine Negative (Negative)
[2022-06-21] MEDS: LORazepam 1 MG TAB PO PRN (13:04)
[2022-06-21] MEDS: ACETAMINOPHEN 500 MG TAB PO PRN (13:04)
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
[2022-06-21] MEDS: DULoxetine HCL 60 MG CAP PO SCH (20:30)
[2022-06-22] MEDS: BACLOFEN 10 MG TAB PO SCH ×4 (03:51→21:13)
[2022-06-22] MEDS: DAPTOmycin 400 MG in SYRINGE 0 ML IV SCH (06:14)
[2022-06-22 08:15] LABS: Hematocrit (blood only) 43.1 % (42.0-52.0); Hemoglobin 14.5 g/dl (14.0-18.0); Mean Corpuscular Hemoglobin 28.2 pg (25.0-34.0); Mean Corpuscular Hgb Conc 33.6 g/dL (32.0-36.0); Mean Corpuscular Volume 83.9 fL (80.0-100.0); Mean Platelet Volume 8.6 fL (9.4-12.4); Platelet Count 601 K/uL (130-400); RDW Coefficient of Variation 14.2 % (11.5-14.5); RDW Standard Deviation 43.3 fL (36.4-46.3); Red Blood Count 5.14 M/uL (4.70-6.10); White Blood Count 7.28 K/ul (4.8-10.8)
[2022-06-22 08:20] LABS: Alanine Aminotransferase 230 U/L (7-52); Albumin Globulin Ratio 1.4 (0.9-2); Alkaline Phosphatase 222 U/L (34-104); Anion Gap 4 (3-11); Aspartate Aminotransferase 104 U/L (13-39); BUN Creatinine Ratio 28.8 (10-20); Bilirubin,Total 0.5 mg/dl (0.2-1.0); Blood Urea Nitrogen 19 mg/dl (6-23); Calcium 10.7 mg/dl (8.5-10.1); Carbon Dioxide 31 mmol/L (21-32); Chloride 103 mmol/L (98-107); Creatinine Clr Calc Pharmacy 158.4 ml/min; Est GFR (African American) > 150.0 ml/min; Est GFR (Non-African American) 137.2 ml/min; Globulin 3.6 gm/dl (2.5-4.0); Glucose 82 mg/dl (70-99(Fasting)); Potassium 4.1 mmol/L (3.5-5.1); Sodium 138 mmol/L (136-145); Total Protein 8.6 gm/dl (6.0-8.3)
[2022-06-22] MEDS: traMADol HCL 50 MG TABLET PO PRN ×3 (08:37→21:36)
[2022-06-22] MEDS: OXYBUTYNIN CHLORIDE 5 MG TAB PO SCH ×2 (08:38→21:14)
[2022-06-22] MEDS: BACLOFEN 10 MG TAB PO PRN ×2 (08:38→14:49)
[2022-06-22] MEDS: ENOXAPARIN INJ 40 MG/0.4 ML SYR SQ SCH (08:38)
[2022-06-22] MEDS: DOCUSATE SODIUM/SENNA 50/8.6MG TAB PO SCH (08:38)
[2022-06-22] MEDS: GABAPENTIN 300 MG CAP PO SCH ×3 (08:38→21:13)
[2022-06-22] MEDS: ASCORBIC ACID 500 MG TAB PO SCH (08:38)
[2022-06-22] MEDS ORDERED: DOCUSATE SODIUM/SENNA 50/8.6MG TAB PO PRN (11:43)
[2022-06-22] MEDS: LORazepam 1 MG TAB PO PRN (13:32)
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
[2022-06-22] MEDS: DULoxetine HCL 60 MG CAP PO SCH (21:13)
[2022-06-23] MEDS: BACLOFEN 10 MG TAB PO SCH ×4 (02:58→20:57)
[2022-06-23] MEDS: traMADol HCL 50 MG TABLET PO PRN ×3 (03:33→16:15)
[2022-06-23] MEDS: DAPTOmycin 400 MG in SYRINGE 0 ML IV SCH (06:13)
[2022-06-23] MEDS: BACLOFEN 10 MG TAB PO PRN ×2 (09:33→16:15)
[2022-06-23] MEDS: ASCORBIC ACID 500 MG TAB PO SCH (09:34)
[2022-06-23] MEDS: GABAPENTIN 300 MG CAP PO SCH ×3 (09:34→20:58)
[2022-06-23] MEDS: OXYBUTYNIN CHLORIDE 5 MG TAB PO SCH ×2 (09:34→20:58)
[2022-06-23] MEDS: ENOXAPARIN INJ 40 MG/0.4 ML SYR SQ SCH (09:35)
--- NOTE | 2022-06-23 10:45 | Gastroenterology Progress Note ---
Date of Service June 23, 2022 Assessment & Plan (1) Transaminitis: Plan: Pt is a 21 yo male paraplegic, admitted with sacral osteomyelitis. Likely drug induced, dapto vs. dantrolene. Plan 1. Viral and autoimmune hepatitis serologies pending 2. Liver US unremarkable 3. Minimize hepatotoxic medications. 4. Continue to follow LFTs. 5. Discussed with Pharmacy who will coordinate with ID and primary team on a ntibiotic management ? change to Vancomycin Admission and Anticipated Discharge Date Admission Date: May 29, 2022 Supervising Physician Co-Signing Physician Notes Attending attestation I have seen, examined this patient, and agree with the findings and above by our mid-level provider HIREN Uriarte, with the following additions: - Elevated LFT's possibly due to dapto - Agree with ID consult - Follow LFT's and serolgies, consider bx if labs do not decrease Subjective Pt having some mild pain over RLQ area. Denies n/v, no fever, chills, jaundice Review of Systems Review of Systems: All systems reviewed & are unremarkable except as noted in HPI & below Physical Exam Constitutional: WD/WN, vitals as above well groomed, cooperative and comfortable Eyes: PERRL, conjunctivae normal, anicteric sclerae ENMT: external ear and nose normal, oropharynx normal Respiratory: normal respiratory effort, lungs clear to auscultation Cardiovascular: RRR, no murmur, no edema Gastrointestinal (Abdomen): RLQ ostomy w brown stool, LLQ fistulous stoma with sarosangenous fluid Musculoskeletal: Pt is a paraplegic Skin: no rashes, warm and dry no jaundice Psychiatric: A+Ox3, euthymic affect Lymphatic: no lymphedema Results & Data ([facility]) Vital Signs (Past 12 Hours) Vital Signs Temp Pulse Resp BP Pulse Ox O2 Del Method 06/23/22 07:27 36.7 C 72 16 118/74 100 Room Air
[2022-06-23] MEDS: CEFEPIME 2,000 MG in SYRINGE 0 ML IV SCH ×2 (10:55→20:51)
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
[2022-06-23] MEDS ORDERED: VANCOMYCIN CONSULT ACTIVE PRN (14:09)
[2022-06-23 14:43] LABS: Hematocrit (blood only) 42.6 % (42.0-52.0); Hemoglobin 14.1 g/dl (14.0-18.0); Mean Corpuscular Hgb Conc 33.1 g/dL (32.0-36.0); Mean Corpuscular Volume 84.5 fL (80.0-100.0); Platelet Count 568 K/uL (130-400); RDW Coefficient of Variation 14.2 % (11.5-14.5); RDW Standard Deviation 43.3 fL (36.4-46.3); Red Blood Count 5.04 M/uL (4.70-6.10); White Blood Count 9.35 K/ul (4.8-10.8)
[2022-06-23] MEDS: LORazepam 1 MG TAB PO PRN (14:51)
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
[2022-06-23 15:01] LABS: Alanine Aminotransferase 157 U/L (7-52); Albumin Globulin Ratio 1.4 (0.9-2); Albumin Level 4.7 gm/dl (3.4-5.0); Alkaline Phosphatase 202 U/L (34-104); Anion Gap 6 (3-11); Aspartate Aminotransferase 55 U/L (13-39); BUN Creatinine Ratio 27.5 (10-20); Bilirubin,Total 0.4 mg/dl (0.2-1.0); Blood Urea Nitrogen 19 mg/dl (6-23); Calcium 10.6 mg/dl (8.5-10.1); Carbon Dioxide 31 mmol/L (21-32); Chloride 103 mmol/L (98-107); Creatinine Clr Calc Pharmacy 151.5 ml/min; Est GFR (African American) > 150.0 ml/min; Est GFR (Non-African American) 134.8 ml/min; Globulin 3.3 gm/dl (2.5-4.0); Glucose 89 mg/dl (70-99(Fasting)); Sodium 140 mmol/L (136-145)
[2022-06-23] MEDS ORDERED: VANCOMYCIN HCL 1,500 MG in SODIUM CHLORIDE 0.9% 500 ML IV ONE (18:00)
[2022-06-23] MEDS: DULoxetine HCL 60 MG CAP PO SCH (20:58)
[2022-06-24] MEDS: VANCOMYCIN HCL 1,000 MG in SODIUM CHLORIDE 0.9% 250 ML IV SCH ×2 (03:13→10:45)
[2022-06-24] MEDS: BACLOFEN 10 MG TAB PO SCH ×4 (04:42→21:40)
[2022-06-24] MEDS: OXYBUTYNIN CHLORIDE 5 MG TAB PO SCH ×2 (09:22→21:43)
[2022-06-24] MEDS: GABAPENTIN 300 MG CAP PO SCH ×3 (09:22→21:43)
[2022-06-24] MEDS: ASCORBIC ACID 500 MG TAB PO SCH (09:22)
[2022-06-24] MEDS: ENOXAPARIN INJ 40 MG/0.4 ML SYR SQ SCH (09:22)
[2022-06-24] MEDS: CEFEPIME 2,000 MG in SYRINGE 0 ML IV SCH ×2 (09:23→21:38)
[2022-06-24] MEDS: traMADol HCL 50 MG TABLET PO PRN ×2 (09:31→21:43)
--- NOTE | 2022-06-24 09:31 | Pharmacy Report ---
Pharmacy Vanc AUC Short Note - Date of Service June 24, 2022 - Assessment & Plan Assessment 21 year old M started on vancomycin for MRSA sacral osteomyelitis infection. ID following and recommended 6 weeks of daptomycin with stop date of 06/30 per notes. Due to rising LFTs provider changing over to vancomycin yesterday. Of note, patient did receive dose of daptomycin yesterday AM 06/23 AM. Will trend LFTs to determine if any improvement with switch of antibiotic. Plan Vancomycin * AUC/KATHERIN is the preferred PK/PD target for vancomycin * AUC guided dosing is effective and associated with decreased risk of nephrotoxicity compared to traditional trough targets * Random vancomycin level this morning was ~16 mcg/ml - current vancomycin regimen is estimated to achieve a trough level of ~17 mcg/ml and target AUC/KATHERIN of 400-600 mg/L.hr and may be associated with a 14% risk of nephrotoxicity * Plan to continue current vancomycin regimen for now. If plan is continue vancomycin, likely could consider Q12 hr regimen for more simpler regimen for discharge. Per notes, case management still working on placement Pharmacy will continue to follow and will adjust dose/frequency as necessary. Thank you.
[2022-06-24 10:05] LABS: Alanine Aminotransferase 135 U/L (7-52); Albumin Globulin Ratio 1.3 (0.9-2); Albumin Level 4.6 gm/dl (3.4-5.0); Alkaline Phosphatase 203 U/L (34-104); Anion Gap 7 (3-11); Aspartate Aminotransferase 38 U/L (13-39); BUN Creatinine Ratio 24.3 (10-20); Bilirubin,Total 0.4 mg/dl (0.2-1.0); Blood Urea Nitrogen 18 mg/dl (6-23); Calcium 10.5 mg/dl (8.5-10.1); Carbon Dioxide 29 mmol/L (21-32); Chloride 105 mmol/L (98-107); Creatinine Clr Calc Pharmacy 141.3 ml/min; Est GFR (African American) > 150.0 ml/min; Est GFR (Non-African American) 130.9 ml/min; Globulin 3.6 gm/dl (2.5-4.0); Glucose 89 mg/dl (70-99(Fasting)); Potassium 4.5 mmol/L (3.5-5.1); Sodium 141 mmol/L (136-145); Total Protein 8.2 gm/dl (6.0-8.3)
--- NOTE | 2022-06-24 10:45 | Communication Note ---
Date of Service: June 24, 2022 Daptomycin switched to Vancomycin given elevated LFTs. LFTs trending down, please continue to monitor. Recall GI prn
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
[2022-06-24] MEDS: LORazepam 1 MG TAB PO PRN ×2 (14:08→15:56)
[2022-06-24] MEDS: VANCOMYCIN HCL 1,250 MG in SODIUM CHLORIDE 0.9% 250 ML IV SCH (21:37)
[2022-06-24] MEDS: DULoxetine HCL 60 MG CAP PO SCH (21:39)
[2022-06-25] MEDS: BACLOFEN 10 MG TAB PO SCH ×4 (03:29→21:34)
[2022-06-25 07:00] LABS: Hemoglobin 12.8 g/dl (14.0-18.0); Mean Corpuscular Hemoglobin 28.4 pg (25.0-34.0); Mean Corpuscular Hgb Conc 34.6 g/dL (32.0-36.0); Mean Corpuscular Volume 82.2 fL (80.0-100.0); Mean Platelet Volume 9.2 fL (9.4-12.4); Platelet Count 503 K/uL (130-400); RDW Coefficient of Variation 13.9 % (11.5-14.5); RDW Standard Deviation 41.1 fL (36.4-46.3); White Blood Count 6.89 K/ul (4.8-10.8)
[2022-06-25 07:15] LABS: Alanine Aminotransferase 115 U/L (7-52); Albumin Globulin Ratio 1.5 (0.9-2); Albumin Level 4.5 gm/dl (3.4-5.0); Alkaline Phosphatase 191 U/L (34-104); Anion Gap 6 (3-11); Aspartate Aminotransferase 40 U/L (13-39); BUN Creatinine Ratio 33.3 (10-20); Bilirubin,Total 0.3 mg/dl (0.2-1.0); Blood Urea Nitrogen 21 mg/dl (6-23); Calcium 10.4 mg/dl (8.5-10.1); Carbon Dioxide 29 mmol/L (21-32); Chloride 104 mmol/L (98-107); Creatine Kinase 278 U/L (30-223); Est GFR (African American) > 150.0 ml/min; Est GFR (Non-African American) 139.9 ml/min; Globulin 3.1 gm/dl (2.5-4.0); Glucose 92 mg/dl (70-99(Fasting)); Sodium 139 mmol/L (136-145); Total Protein 7.6 gm/dl (6.0-8.3)
[2022-06-25] MEDS: CEFEPIME 2,000 MG in SYRINGE 0 ML IV SCH (08:21)
[2022-06-25] MEDS: VANCOMYCIN HCL 1,250 MG in SODIUM CHLORIDE 0.9% 250 ML IV SCH ×2 (08:27→21:29)
[2022-06-25] MEDS: ENOXAPARIN INJ 40 MG/0.4 ML SYR SQ SCH (08:31)
[2022-06-25] MEDS: OXYBUTYNIN CHLORIDE 5 MG TAB PO SCH ×2 (08:33→21:33)
[2022-06-25] MEDS: GABAPENTIN 300 MG CAP PO SCH ×3 (08:33→21:34)
[2022-06-25] MEDS: ASCORBIC ACID 500 MG TAB PO SCH (08:33)
[2022-06-25] MEDS: ACETAMINOPHEN 500 MG TAB PO PRN (08:38)
[2022-06-25] MEDS: traMADol HCL 50 MG TABLET PO PRN ×2 (08:38→21:32)
[2022-06-25] MEDS: hydrOXYzine HCl 10 MG TAB PO PRN ×2 (13:01→21:33)
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
[2022-06-25] MEDS: LORazepam 1 MG TAB PO PRN (18:12)
[2022-06-26] MEDS: BACLOFEN 10 MG TAB PO SCH ×4 (03:30→21:03)
[2022-06-26] MEDS: hydrOXYzine HCl 10 MG TAB PO PRN (07:41)
[2022-06-26 08:03] LABS: Mean Corpuscular Hemoglobin 28.3 pg (25.0-34.0); Mean Corpuscular Hgb Conc 34.1 g/dL (32.0-36.0); Mean Corpuscular Volume 82.8 fL (80.0-100.0); Mean Platelet Volume 8.8 fL (9.4-12.4); Platelet Count 481 K/uL (130-400); RDW Coefficient of Variation 14.1 % (11.5-14.5); RDW Standard Deviation 42.1 fL (36.4-46.3); Red Blood Count 4.95 M/uL (4.70-6.10); White Blood Count 6.51 K/ul (4.8-10.8)
[2022-06-26 08:29] LABS: Alanine Aminotransferase 93 U/L (7-52); Albumin Globulin Ratio 1.3 (0.9-2); Albumin Level 4.6 gm/dl (3.4-5.0); Alkaline Phosphatase 189 U/L (34-104); Anion Gap 6 (3-11); Aspartate Aminotransferase 28 U/L (13-39); BUN Creatinine Ratio 25.3 (10-20); Bilirubin,Total 0.4 mg/dl (0.2-1.0); Blood Urea Nitrogen 19 mg/dl (6-23); Calcium 10.4 mg/dl (8.5-10.1); Carbon Dioxide 30 mmol/L (21-32); Chloride 103 mmol/L (98-107); Creatinine Clr Calc Pharmacy 139.4 ml/min; Est GFR (African American) > 150.0 ml/min; Est GFR (Non-African American) 130.2 ml/min; Globulin 3.5 gm/dl (2.5-4.0); Glucose 95 mg/dl (70-99(Fasting)); Potassium 3.7 mmol/L (3.5-5.1); Sodium 139 mmol/L (136-145); Total Protein 8.1 gm/dl (6.0-8.3)
[2022-06-26] MEDS: ASCORBIC ACID 500 MG TAB PO SCH (08:53)
[2022-06-26] MEDS: GABAPENTIN 300 MG CAP PO SCH ×3 (08:53→21:03)
[2022-06-26] MEDS: OXYBUTYNIN CHLORIDE 5 MG TAB PO SCH ×2 (08:53→21:04)
[2022-06-26] MEDS: traMADol HCL 50 MG TABLET PO PRN ×2 (08:53→23:36)
[2022-06-26] MEDS: ENOXAPARIN INJ 40 MG/0.4 ML SYR SQ SCH (08:53)
[2022-06-26] MEDS: DULoxetine HCL 60 MG CAP PO SCH (08:54)
--- NOTE | 2022-06-26 09:31 | Pharmacy Report ---
Pharmacy PK ABX Note - Date of Service June 26, 2022 - Assessment and Plan Assessment 21 year old M receiving IV Vancomycin for treatment of sacral MRSA Osteomyelitis. ID consult from yesterday states that chronic osteo likely not curable without surgical debridement, so recommending DC antibiotics if no active infection in the wound. Discussed with Dr Ellis, patient very upset about discontinuation of antibiotics, and would like to continue 6 week course Vancomycin (05/19/22- 06/30/22). Plan Vancomycin * Current regimen: 1250 mg IV every 12 hours * Trough level obtained 06/26/22 resulted as 11 mcg/mL. This is predicted to achieve target AUC/KATHERIN of 400-600 mg/L.hr * Continue 1250 mg IV every 12 hours * Repeat trough level on 06/28 Pharmacy will continue to follow and will adjust dose/frequency as necessary. Thank you. Pharmacy has transitioned to AUC monitoring for vancomycin. AUC/KATHERIN is the preferred PK/PD target and is associated with decreased risk of nephrotoxicity compared to traditional trough targets.
[2022-06-26] MEDS: VANCOMYCIN HCL 1,250 MG in SODIUM CHLORIDE 0.9% 250 ML IV SCH ×2 (09:39→21:03)
--- NOTE | 2022-06-26 10:46 | Communication Note ---
Date of Service: June 26, 2022 21 yo man who is currently homeless with paraplegia, sacral osteomyelitis, ADHD, PTSD and history of substance use admitted medically for osteomyelitis and housing challenges. Psychiatry input requested by Dr. Ellis for increased nightmares over the last two weeks. Reviewed his chart and medications and discussed with Dr. Ellis. A/P: Worsening nightmares could represent side effect from his SNRI medication, duloxetine. Recommend this be moved from HS dosing to QAM dosing to see if this helps lessen or resolve the nightmares. If this does not help could consider trial of prazosin 1mg HS as some evidence this can help with PTSD related night- terrors. Would monitor BP to ensure this does not result in excessive hypotension, particularly given his paraplegia though some data suggests prazosin could help with can autonomic dysfunction in paraplegia so felt to be a safe option to try. -Switch duloxetine to QAM dosing, if not helpful for nightmares consider prazosin 1mg HS
[2022-06-26] MEDS: BACLOFEN 10 MG TAB PO PRN (13:28)
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
[2022-06-26] MEDS: LORazepam 1 MG TAB PO PRN (19:56)
[2022-06-26] MEDS ORDERED: MELATONIN 3 MG TAB PO PRN (21:01)
[2022-06-27] MEDS: BACLOFEN 10 MG TAB PO SCH ×4 (06:38→21:18)
[2022-06-27] MEDS: ACETAMINOPHEN 500 MG TAB PO PRN (07:40)
[2022-06-27] MEDS: traMADol HCL 50 MG TABLET PO PRN (08:44)
[2022-06-27] MEDS: ENOXAPARIN INJ 40 MG/0.4 ML SYR SQ SCH (08:45)
[2022-06-27] MEDS: OXYBUTYNIN CHLORIDE 5 MG TAB PO SCH ×2 (08:46→21:18)
[2022-06-27] MEDS: DULoxetine HCL 60 MG CAP PO SCH (08:46)
[2022-06-27] MEDS: GABAPENTIN 300 MG CAP PO SCH ×3 (08:46→21:19)
[2022-06-27] MEDS: ASCORBIC ACID 500 MG TAB PO SCH (08:47)
[2022-06-27] MEDS: VANCOMYCIN HCL 1,250 MG in SODIUM CHLORIDE 0.9% 250 ML IV SCH ×2 (08:49→21:18)
[2022-06-27 12:04] LABS: Alanine Aminotransferase 81 U/L (7-52); Albumin Globulin Ratio 1.3 (0.9-2); Albumin Level 4.7 gm/dl (3.4-5.0); Alkaline Phosphatase 185 U/L (34-104); Anion Gap 7 (3-11); Aspartate Aminotransferase 28 U/L (13-39); BUN Creatinine Ratio 32.9 (10-20); Bilirubin,Total 0.5 mg/dl (0.2-1.0); Blood Urea Nitrogen 25 mg/dl (6-23); Calcium 10.5 mg/dl (8.5-10.1); Carbon Dioxide 29 mmol/L (21-32); Chloride 99 mmol/L (98-107); Creatinine Clr Calc Pharmacy 137.6 ml/min; Est GFR (African American) > 150.0 ml/min; Est GFR (Non-African American) 129.5 ml/min; Globulin 3.5 gm/dl (2.5-4.0); Glucose 88 mg/dl (70-99(Fasting)); Sodium 135 mmol/L (136-145); Total Protein 8.2 gm/dl (6.0-8.3)
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
[2022-06-27] MEDS: LORazepam 1 MG TAB PO PRN (19:39)
[2022-06-28] MEDS: BACLOFEN 10 MG TAB PO SCH ×4 (04:33→21:10)
[2022-06-28] MEDS ORDERED: VANCOMYCIN LEVEL ONE (07:30)
[2022-06-28] MEDS: GABAPENTIN 300 MG CAP PO SCH ×3 (08:22→21:10)
[2022-06-28] MEDS: traMADol HCL 50 MG TABLET PO PRN ×3 (08:28→21:17)
[2022-06-28] MEDS: ENOXAPARIN INJ 40 MG/0.4 ML SYR SQ SCH (09:23)
[2022-06-28] MEDS: VANCOMYCIN HCL 1,250 MG in SODIUM CHLORIDE 0.9% 250 ML IV SCH ×2 (09:23→21:11)
--- NOTE | 2022-06-28 10:25 | Pharmacy Report ---
Pharmacy PK ABX Note - Date of Service June 28, 2022 - Assessment and Plan Assessment 21 year old M receiving IV Vancomycin for treatment of sacral MRSA Osteomyelitis. Recent ID consult states that chronic osteo likely not curable without surgical debridement, so recommending DC antibiotics if no active infection in the wound. This was discussed with Dr Ellis (06/27), patient very upset about discontinuation of antibiotics, and would like to continue 6 week course Vanco mycin (05/19/22-06/30/22). Plan Vancomycin * Current regimen: 1250 mg IV every 12 hours * Trough level obtained 06/28/22 resulted as 10.3 mcg/mL. This is predicted to achieve target AUC/KATHERIN of 400-600 mg/L.hr * Continue 1250 mg IV every 12 hours * Treatment duration complete in 48 hours. Will not order another level unless therapy extends or clinically indicated. Pharmacy will continue to follow and will adjust dose/frequency as necessary. Thank you. Pharmacy has transitioned to AUC monitoring for vancomycin. AUC/KATHERIN is the preferred PK/PD target and is associated with decreased risk of nephrotoxicity compared to traditional trough targets.
[2022-06-28] MEDS ORDERED: SODIUM CHLORIDE 0.9% 1000ML 1,000 ML IV ONE (15:19)
[2022-06-28] MEDS: MECLIZINE 12.5 MG TAB PO PRN (16:21)
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
[2022-06-28] MEDS: LORazepam 1 MG TAB PO PRN (20:03)
[2022-06-29 00:03] LABS: Anti Nuclear Antibody Screen NEGATIVE (NEGATIVE); CMV IgM Antibody <30.00 AU/mL; HBSAG NON-REACTIVE (NON-REACTIVE); Hepatitis A Antibody IgM NON-REACTIVE (NON-REACTIVE); Hepatitis B Core Antibody IgM NON-REACTIVE (NON-REACTIVE); Parvovirus IgG 0.2 (<0.9); Parvovirus IgM 0.1 (<0.9); Smooth Muscle Antibody NEGATIVE (NEGATIVE)
[2022-06-29] MEDS: BACLOFEN 10 MG TAB PO SCH ×4 (02:26→22:19)
[2022-06-29 08:55] LABS: Alanine Aminotransferase 57 U/L (7-52); Albumin Globulin Ratio 1.5 (0.9-2); Albumin Level 4.8 gm/dl (3.4-5.0); Alkaline Phosphatase 166 U/L (34-104); Anion Gap 6 (3-11); Aspartate Aminotransferase 18 U/L (13-39); BUN Creatinine Ratio 27.4 (10-20); Bilirubin,Total 0.5 mg/dl (0.2-1.0); Blood Urea Nitrogen 20 mg/dl (6-23); Calcium 10.5 mg/dl (8.5-10.1); Carbon Dioxide 31 mmol/L (21-32); Chloride 101 mmol/L (98-107); Creatinine Clr Calc Pharmacy 143.2 ml/min; Est GFR (African American) > 150.0 ml/min; Est GFR (Non-African American) 131.7 ml/min; Globulin 3.3 gm/dl (2.5-4.0); Glucose 97 mg/dl (70-99(Fasting)); Potassium 4.1 mmol/L (3.5-5.1); Sodium 138 mmol/L (136-145); Total Protein 8.1 gm/dl (6.0-8.3)
[2022-06-29] MEDS: VANCOMYCIN HCL 1,250 MG in SODIUM CHLORIDE 0.9% 250 ML IV SCH ×2 (08:56→20:40)
[2022-06-29] MEDS: GABAPENTIN 300 MG CAP PO SCH ×3 (08:57→22:17)
[2022-06-29] MEDS ORDERED: SODIUM CHLORIDE 0.9% 500 ML IV SCH (09:00)
[2022-06-29] MEDS: traMADol HCL 50 MG TABLET PO PRN ×3 (09:07→22:18)
[2022-06-29] MEDS: MECLIZINE 12.5 MG TAB PO PRN (10:59)
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
[2022-06-29] MEDS ORDERED: BACLOFEN 10 MG TAB PO PRN (17:00)
[2022-06-29] MEDS: ENOXAPARIN INJ 40 MG/0.4 ML SYR SQ SCH (18:17)
[2022-06-29] MEDS ORDERED: Nursing to Pharmacy Communication SCH (18:45)
[2022-06-29] MEDS: LORazepam 1 MG TAB PO PRN (20:40)
[2022-06-29] MEDS: OXYBUTYNIN CHLORIDE 5 MG TAB PO SCH (22:20)
[2022-06-30] MEDS: BACLOFEN 10 MG TAB PO SCH ×4 (05:57→22:01)
[2022-06-30] MEDS: MECLIZINE 12.5 MG TAB PO PRN (06:29)
[2022-06-30] MEDS: OXYBUTYNIN CHLORIDE 5 MG TAB PO SCH ×2 (08:36→22:02)
[2022-06-30] MEDS: traMADol HCL 50 MG TABLET PO PRN ×3 (08:36→22:00)
[2022-06-30] MEDS: GABAPENTIN 300 MG CAP PO SCH ×3 (08:36→22:00)
[2022-06-30] MEDS: ASCORBIC ACID 500 MG TAB PO SCH (08:38)
--- NOTE | 2022-06-30 12:31 | Electrocardiogram Report ---
Test Reason : Blood Pressure : / mmHG Vent. Rate : 078 BPM Atrial Rate : 078 BPM P-R Int : 170 ms QRS Dur : 084 ms QT Int : 362 ms P-R-T Axes : 078 084 087 degrees QTc Int : 412 ms Normal sinus rhythm Normal ECG When compared with ECG of 22-JAN-2021 07:13, Vent. rate has increased BY 27 BPM Confirmed by Keith James ([id number]) on 06/30/2022 12:30:45 PM Referred By: REFERRED SELF Confirmed By:Keith James
[2022-06-30] MEDS: ENOXAPARIN INJ 40 MG/0.4 ML SYR SQ SCH (15:42)
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
[2022-06-30] MEDS: LORazepam 1 MG TAB PO PRN (20:35)
[2022-07-01] MEDS: BACLOFEN 10 MG TAB PO SCH ×4 (02:58→21:57)
[2022-07-01] MEDS: GABAPENTIN 300 MG CAP PO SCH ×3 (08:14→21:58)
[2022-07-01] MEDS: MECLIZINE 12.5 MG TAB PO PRN ×2 (08:15→16:57)
[2022-07-01] MEDS: traMADol HCL 50 MG TABLET PO PRN ×3 (08:20→21:58)
[2022-07-01] MEDS: ASCORBIC ACID 500 MG TAB PO SCH (08:21)
[2022-07-01] MEDS: OXYBUTYNIN CHLORIDE 5 MG TAB PO SCH ×2 (08:22→21:58)
[2022-07-01] MEDS ORDERED: ENOXAPARIN INJ 40 MG/0.4 ML SYR SQ SCH (09:00)
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
[2022-07-01] MEDS: LORazepam 1 MG TAB PO PRN (20:38)
[2022-07-02] MEDS: BACLOFEN 10 MG TAB PO SCH ×4 (03:58→22:16)
[2022-07-02] MEDS: traMADol HCL 50 MG TABLET PO PRN ×2 (03:58→22:11)
[2022-07-02] MEDS: hydrOXYzine HCl 10 MG TAB PO PRN (09:18)
[2022-07-02] MEDS: GABAPENTIN 300 MG CAP PO SCH ×3 (09:18→22:17)
[2022-07-02] MEDS: OXYBUTYNIN CHLORIDE 5 MG TAB PO SCH ×2 (09:19→22:15)
[2022-07-02] MEDS: ASCORBIC ACID 500 MG TAB PO SCH (09:19)
[2022-07-02 09:22] LABS: Hematocrit (blood only) 41.4 % (42.0-52.0); Hemoglobin 14.1 g/dl (14.0-18.0); Mean Corpuscular Hemoglobin 28.7 pg (25.0-34.0); Mean Corpuscular Hgb Conc 34.1 g/dL (32.0-36.0); Mean Corpuscular Volume 84.3 fL (80.0-100.0); Mean Platelet Volume 9.5 fL (9.4-12.4); Platelet Count 431 K/uL (130-400); RDW Coefficient of Variation 13.7 % (11.5-14.5); Red Blood Count 4.91 M/uL (4.70-6.10)
[2022-07-02 09:33] LABS: Albumin Globulin Ratio 1.3 (0.9-2); Albumin Level 4.7 gm/dl (3.4-5.0); BUN Creatinine Ratio 26.4 (10-20); Bilirubin,Total 0.5 mg/dl (0.2-1.0); Calcium 10.5 mg/dl (8.5-10.1); Creatinine Clr Calc Pharmacy 120.2 ml/min; Est GFR (Non-African American) 122.5 ml/min; Globulin 3.6 gm/dl (2.5-4.0); Potassium 3.9 mmol/L (3.5-5.1); Total Protein 8.3 gm/dl (6.0-8.3)
[2022-07-02] MEDS: APIXABAN 2.5 MG TAB PO SCH ×2 (10:35→22:12)
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
[2022-07-03] MEDS: BACLOFEN 10 MG TAB PO SCH ×4 (02:40→20:39)
[2022-07-03 09:15] LABS: Basophils # (auto) 0.06 K/uL (0-0.2); Basophils % (auto) 0.3 %; Eosinophils # (auto) 0.01 K/uL (0-0.50); Eosinophils % (auto) 0.1 %; Hematocrit (blood only) 40.9 % (42.0-52.0); Hemoglobin 14.1 g/dl (14.0-18.0); Immature Granulocytes # (auto) 0.08 K/uL (0.01-0.20); Immature Granulocytes % (auto) 0.4 %; Lymphocytes # (auto) 2.87 K/uL (1.2-3.4); Lymphocytes % (auto) 15.5 %; Mean Corpuscular Hemoglobin 28.4 pg (25.0-34.0); Mean Corpuscular Hgb Conc 34.5 g/dL (32.0-36.0); Mean Corpuscular Volume 82.5 fL (80.0-100.0); Mean Platelet Volume 9.3 fL (9.4-12.4); Monocytes # (auto) 1.19 K/uL (0.11-0.59); Monocytes % (auto) 6.4 %; Neutrophils # (auto) 14.33 K/uL (1.40-6.50); Neutrophils % (auto) 77.3 %; Platelet Count 458 K/uL (130-400); RDW Coefficient of Variation 13.8 % (11.5-14.5); RDW Standard Deviation 40.6 fL (36.4-46.3); Red Blood Count 4.96 M/uL (4.70-6.10); White Blood Count 18.54 K/ul (4.8-10.8)
[2022-07-03] MEDS: GABAPENTIN 300 MG CAP PO SCH ×3 (09:29→21:02)
[2022-07-03] MEDS: ASCORBIC ACID 500 MG TAB PO SCH (09:30)
[2022-07-03] MEDS: OXYBUTYNIN CHLORIDE 5 MG TAB PO SCH ×2 (09:30→20:40)
[2022-07-03] MEDS: APIXABAN 2.5 MG TAB PO SCH ×2 (09:31→20:38)
[2022-07-03] MEDS: traMADol HCL 50 MG TABLET PO PRN ×2 (09:33→20:38)
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
[2022-07-03] MEDS: SERTRALINE HCL 50 MG TABLET PO SCH (17:01)
[2022-07-03] MEDS: ACETAMINOPHEN 500 MG TAB PO PRN (20:37)
[2022-07-03] MEDS: PRAZOSIN HCL 1 MG CAP PO SCH (20:39)
[2022-07-03] MEDS: MECLIZINE 12.5 MG TAB PO PRN (21:02)
[2022-07-04] MEDS: BACLOFEN 10 MG TAB PO SCH ×4 (02:53→21:33)
[2022-07-04] MEDS: ASCORBIC ACID 500 MG TAB PO SCH (08:56)
[2022-07-04] MEDS: GABAPENTIN 300 MG CAP PO SCH ×3 (08:57→21:33)
[2022-07-04] MEDS: OXYBUTYNIN CHLORIDE 5 MG TAB PO SCH ×2 (08:57→21:34)
[2022-07-04] MEDS: APIXABAN 2.5 MG TAB PO SCH ×2 (08:58→21:33)
[2022-07-04] MEDS: SERTRALINE HCL 50 MG TABLET PO SCH (08:59)
[2022-07-04] MEDS: traMADol HCL 50 MG TABLET PO PRN ×2 (09:00→21:34)
[2022-07-04 10:27] LABS: Basophils # (auto) 0.06 K/uL (0-0.2); Basophils % (auto) 0.6 %; Eosinophils # (auto) 0.11 K/uL (0-0.50); Hematocrit (blood only) 39.2 % (42.0-52.0); Hemoglobin 13.4 g/dl (14.0-18.0); Immature Granulocytes # (auto) 0.03 K/uL (0.01-0.20); Immature Granulocytes % (auto) 0.3 %; Lymphocytes # (auto) 2.04 K/uL (1.2-3.4); Lymphocytes % (auto) 18.9 %; Mean Corpuscular Hemoglobin 28.5 pg (25.0-34.0); Mean Corpuscular Hgb Conc 34.2 g/dL (32.0-36.0); Mean Corpuscular Volume 83.2 fL (80.0-100.0); Mean Platelet Volume 9.5 fL (9.4-12.4); Monocytes # (auto) 0.91 K/uL (0.11-0.59); Monocytes % (auto) 8.4 %; Neutrophils # (auto) 7.65 K/uL (1.40-6.50); Neutrophils % (auto) 70.8 %; Platelet Count 423 K/uL (130-400); RDW Coefficient of Variation 13.8 % (11.5-14.5); RDW Standard Deviation 41.5 fL (36.4-46.3); Red Blood Count 4.71 M/uL (4.70-6.10)
[2022-07-04 10:36] LABS: BUN Creatinine Ratio 22.5 (10-20); Calcium 9.9 mg/dl (8.5-10.1); Creatinine Clr Calc Pharmacy 117.5 ml/min; Est GFR (African American) 140.7 ml/min; Est GFR (Non-African American) 121.4 ml/min; Potassium 3.9 mmol/L (3.5-5.1)
[2022-07-04] MEDS: ADVANCED PROBIOTIC 1250 MG CAPSULE PO SCH (13:43)
[2022-07-04] MEDS: LORazepam 1 MG TAB PO PRN (13:44)
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
[2022-07-04] MEDS: hydrOXYzine HCl 10 MG TAB PO PRN (21:34)
[2022-07-04] MEDS: PRAZOSIN HCL 1 MG CAP PO SCH (21:34)
[2022-07-05] MEDS: BACLOFEN 10 MG TAB PO SCH ×4 (02:51→20:24)
[2022-07-05] MEDS: OXYBUTYNIN CHLORIDE 5 MG TAB PO SCH ×2 (09:13→20:25)
[2022-07-05] MEDS: GABAPENTIN 300 MG CAP PO SCH ×3 (09:14→20:25)
[2022-07-05] MEDS: APIXABAN 2.5 MG TAB PO SCH ×2 (09:14→20:24)
[2022-07-05] MEDS: traMADol HCL 50 MG TABLET PO PRN ×2 (09:21→20:24)
[2022-07-05] MEDS: ADVANCED PROBIOTIC 1250 MG CAPSULE PO SCH (09:21)
[2022-07-05] MEDS: SERTRALINE HCL 50 MG TABLET PO SCH (09:22)
[2022-07-05] MEDS: ASCORBIC ACID 500 MG TAB PO SCH (09:22)
[2022-07-05 09:49] LABS: BUN Creatinine Ratio 27.2 (10-20); Calcium 9.9 mg/dl (8.5-10.1); Creatinine Clr Calc Pharmacy 129.1 ml/min; Est GFR (African American) 146.2 ml/min; Est GFR (Non-African American) 126.2 ml/min; Potassium 4.3 mmol/L (3.5-5.1)
[2022-07-05 09:57] LABS: Basophils # (auto) 0.06 K/uL (0-0.2); Basophils % (auto) 0.8 %; Eosinophils # (auto) 0.14 K/uL (0-0.50); Eosinophils % (auto) 1.8 %; Hematocrit (blood only) 38.6 % (42.0-52.0); Immature Granulocytes # (auto) 0.01 K/uL (0.01-0.20); Immature Granulocytes % (auto) 0.1 %; Lymphocytes # (auto) 1.84 K/uL (1.2-3.4); Lymphocytes % (auto) 24.1 %; Mean Corpuscular Hemoglobin 28.3 pg (25.0-34.0); Mean Corpuscular Hgb Conc 33.7 g/dL (32.0-36.0); Mean Corpuscular Volume 84.1 fL (80.0-100.0); Mean Platelet Volume 9.3 fL (9.4-12.4); Monocytes # (auto) 0.46 K/uL (0.11-0.59); Neutrophils # (auto) 5.11 K/uL (1.40-6.50); Neutrophils % (auto) 67.2 %; Platelet Count 394 K/uL (130-400); RDW Coefficient of Variation 13.8 % (11.5-14.5); Red Blood Count 4.59 M/uL (4.70-6.10); White Blood Count 7.62 K/ul (4.8-10.8)
[2022-07-05] MEDS: LOPERAMIDE HCL 2 MG CAP PO PRN (17:42)
[2022-07-05] MEDS: LORazepam 1 MG TAB PO PRN (17:43)
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
[2022-07-05] MEDS: PRAZOSIN HCL 1 MG CAP PO SCH (20:25)
[2022-07-05] MEDS: hydrOXYzine HCl 10 MG TAB PO PRN (20:26)
[2022-07-06] MEDS: BACLOFEN 10 MG TAB PO SCH ×4 (03:06→21:08)
[2022-07-06] MEDS: traMADol HCL 50 MG TABLET PO PRN ×2 (09:07→21:05)
[2022-07-06] MEDS: OXYBUTYNIN CHLORIDE 5 MG TAB PO SCH ×2 (09:08→21:06)
[2022-07-06] MEDS: GABAPENTIN 300 MG CAP PO SCH ×3 (09:08→21:06)
[2022-07-06] MEDS: APIXABAN 2.5 MG TAB PO SCH ×2 (09:08→21:06)
[2022-07-06] MEDS: ASCORBIC ACID 500 MG TAB PO SCH (09:10)
[2022-07-06] MEDS: SERTRALINE HCL 50 MG TABLET PO SCH (09:11)
[2022-07-06] MEDS: ADVANCED PROBIOTIC 1250 MG CAPSULE PO SCH (09:11)
[2022-07-06] MEDS: LOPERAMIDE HCL 2 MG CAP PO PRN (15:34)
[2022-07-06] MEDS: NICOTINE POLACRILEX 2 MG GUM MT PRN ×3 (15:34→19:47)
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
[2022-07-06] MEDS: LORazepam 1 MG TAB PO PRN (16:47)
[2022-07-06] MEDS: POLYETHYLENE (MIRALAX) 17 GM PACK PO PRN (16:55)
[2022-07-06] MEDS: hydrOXYzine HCl 10 MG TAB PO PRN (21:06)
[2022-07-06] MEDS: PRAZOSIN HCL 1 MG CAP PO SCH (21:08)
[2022-07-07] MEDS: BACLOFEN 10 MG TAB PO SCH ×4 (02:47→20:04)
[2022-07-07] MEDS: NICOTINE POLACRILEX 2 MG GUM MT PRN ×8 (03:24→22:10)
[2022-07-07] MEDS: traMADol HCL 50 MG TABLET PO PRN ×2 (09:40→20:03)
[2022-07-07] MEDS: GABAPENTIN 300 MG CAP PO SCH ×3 (09:40→20:03)
[2022-07-07] MEDS: OXYBUTYNIN CHLORIDE 5 MG TAB PO SCH ×2 (09:41→20:02)
[2022-07-07] MEDS: APIXABAN 2.5 MG TAB PO SCH ×2 (09:41→20:02)
[2022-07-07] MEDS: ADVANCED PROBIOTIC 1250 MG CAPSULE PO SCH (09:43)
[2022-07-07] MEDS: ASCORBIC ACID 500 MG TAB PO SCH (09:43)
[2022-07-07] MEDS: SERTRALINE HCL 50 MG TABLET PO SCH (09:49)
[2022-07-07] MEDS: ACETAMINOPHEN 500 MG TAB PO PRN (15:26)
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
[2022-07-07] MEDS: hydrOXYzine HCl 10 MG TAB PO PRN (20:01)
[2022-07-07] MEDS: PRAZOSIN HCL 1 MG CAP PO SCH (20:34)
[2022-07-08] MEDS: BACLOFEN 10 MG TAB PO SCH ×4 (03:11→21:27)
[2022-07-08] MEDS: traMADol HCL 50 MG TABLET PO PRN (08:28)
[2022-07-08] MEDS: NICOTINE POLACRILEX 2 MG GUM MT PRN ×6 (08:28→19:50)
[2022-07-08] MEDS: APIXABAN 2.5 MG TAB PO SCH ×2 (08:29→21:27)
[2022-07-08] MEDS: ASCORBIC ACID 500 MG TAB PO SCH (08:29)
[2022-07-08] MEDS: GABAPENTIN 300 MG CAP PO SCH ×3 (08:30→21:28)
[2022-07-08] MEDS: OXYBUTYNIN CHLORIDE 5 MG TAB PO SCH ×2 (08:30→21:28)
[2022-07-08] MEDS: SERTRALINE HCL 50 MG TABLET PO SCH (08:30)
[2022-07-08] MEDS: ADVANCED PROBIOTIC 1250 MG CAPSULE PO SCH (08:30)
[2022-07-08] MEDS: MECLIZINE 12.5 MG TAB PO PRN (08:31)
[2022-07-08] MEDS: LORazepam 1 MG TAB PO PRN (12:47)
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
[2022-07-08] MEDS: ACETAMINOPHEN 500 MG TAB PO PRN (16:44)
[2022-07-08] MEDS: PRAZOSIN HCL 1 MG CAP PO SCH (21:27)
[2022-07-09] MEDS: traMADol HCL 50 MG TABLET PO PRN ×3 (01:08→17:17)
[2022-07-09] MEDS: BACLOFEN 10 MG TAB PO SCH ×4 (03:50→21:04)
[2022-07-09 07:00] LABS: Hematocrit (blood only) 39.2 % (42.0-52.0); Hemoglobin 13.4 g/dl (14.0-18.0); Mean Corpuscular Hemoglobin 29.6 pg (25.0-34.0); Mean Corpuscular Hgb Conc 34.2 g/dL (32.0-36.0); Mean Corpuscular Volume 86.5 fL (80.0-100.0); Mean Platelet Volume 9.6 fL (9.4-12.4); Platelet Count 492 K/uL (130-400); RDW Coefficient of Variation 13.9 % (11.5-14.5); RDW Standard Deviation 43.2 fL (36.4-46.3); Red Blood Count 4.53 M/uL (4.70-6.10); White Blood Count 7.07 K/ul (4.8-10.8)
[2022-07-09 07:16] LABS: Alanine Aminotransferase 18 U/L (7-52); Albumin Globulin Ratio 1.4 (0.9-2); Albumin Level 4.3 gm/dl (3.4-5.0); Alkaline Phosphatase 114 U/L (34-104); Anion Gap 3 (3-11); Aspartate Aminotransferase 13 U/L (13-39); BUN Creatinine Ratio 27.1 (10-20); Bilirubin,Total 0.3 mg/dl (0.2-1.0); Blood Urea Nitrogen 19 mg/dl (6-23); Calcium 9.8 mg/dl (8.5-10.1); Carbon Dioxide 35 mmol/L (21-32); Chloride 103 mmol/L (98-107); Creatine Kinase 101 U/L (30-223); Creatinine Clr Calc Pharmacy 149.4 ml/min; Est GFR (African American) > 150.0 ml/min; Glucose 78 mg/dl (70-99(Fasting)); Potassium 3.8 mmol/L (3.5-5.1); Sodium 141 mmol/L (136-145); Total Protein 7.3 gm/dl (6.0-8.3)
[2022-07-09] MEDS: NICOTINE POLACRILEX 2 MG GUM MT PRN ×7 (08:21→20:02)
[2022-07-09] MEDS: MECLIZINE 12.5 MG TAB PO PRN (09:29)
[2022-07-09] MEDS: ASCORBIC ACID 500 MG TAB PO SCH (09:30)
[2022-07-09] MEDS: APIXABAN 2.5 MG TAB PO SCH ×2 (09:30→21:02)
[2022-07-09] MEDS: SERTRALINE HCL 50 MG TABLET PO SCH (09:31)
[2022-07-09] MEDS: GABAPENTIN 300 MG CAP PO SCH ×3 (09:31→21:03)
[2022-07-09] MEDS: OXYBUTYNIN CHLORIDE 5 MG TAB PO SCH ×2 (09:31→21:03)
[2022-07-09] MEDS: ADVANCED PROBIOTIC 1250 MG CAPSULE PO SCH (09:31)
[2022-07-09] MEDS: ACETAMINOPHEN 500 MG TAB PO PRN (12:11)
[2022-07-09] MEDS: LORazepam 1 MG TAB PO PRN (14:08)
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
[2022-07-09] MEDS: PRAZOSIN HCL 1 MG CAP PO SCH (21:03)
[2022-07-09] MEDS: hydrOXYzine HCl 10 MG TAB PO PRN (21:32)
[2022-07-10] MEDS: BACLOFEN 10 MG TAB PO SCH ×6 (02:53→21:25)
[2022-07-10] MEDS: NICOTINE POLACRILEX 2 MG GUM MT PRN ×7 (08:24→23:11)
[2022-07-10] MEDS ORDERED: SODIUM CHLORIDE 0.9% 500 ML IV SCH (08:30)
[2022-07-10] MEDS ORDERED: ALBUMIN 25% 100 mL 25 GM/100 ML VIAL IV ONE (08:56)
[2022-07-10] MEDS ORDERED: MIDODRINE HCL 2.5 MG TAB PO ONE (08:58)
[2022-07-10] MEDS: ADVANCED PROBIOTIC 1250 MG CAPSULE PO SCH (09:43)
[2022-07-10] MEDS: MECLIZINE 12.5 MG TAB PO PRN (09:43)
[2022-07-10] MEDS: APIXABAN 2.5 MG TAB PO SCH ×2 (09:44→21:24)
[2022-07-10] MEDS: GABAPENTIN 300 MG CAP PO SCH ×3 (09:44→21:24)
[2022-07-10] MEDS: ASCORBIC ACID 500 MG TAB PO SCH (09:45)
[2022-07-10] MEDS: OXYBUTYNIN CHLORIDE 5 MG TAB PO SCH ×2 (09:46→21:24)
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
[2022-07-10] MEDS: SERTRALINE HCL 100 MG TABLET PO SCH (09:47)
[2022-07-10] MEDS: ACETAMINOPHEN 500 MG TAB PO PRN (09:50)
--- NOTE | 2022-07-10 10:00 | Communication Note ---
Date of Service: July 10, 2022 Pt seen at bedside for low BP 85/47 w/ increase HR 112; pt declines dizziness or chest pain at bedside exam, I had asked RN to use NSS ivf in an attempt to stabilize BP. RN told he declined IVF citiing that he doesn't want himself self- cathing more due to IVF. Then i was updated with repeat BP of 77/49 w/ HR Of 106. Then I ordered 25 gm of iv albumin, now patient says he doesn't want to get iv albumin. At my exam, he seemed stable, slight tachycardic, using his mobile. lying in the bed and on Room Air. I explained that whether he takes PO fluids (which he is agreeable to take more if needed) or IVF fluids, he will find himself cathing for about the same frequency as long as volume of the fluids are similar and then explained ivf will help stabilize BP better. He declined again. Explained him that his BP can go very low and he could have multiple problems like chest pain/kidney injury/hypoperfusion/lethargy and including . He understands but he is not agreeable to both IVF and iv albumin. 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 When asked, pt reports he has used similar medicine in the past for his lower BP when he was at [facility] at [facility] but he is not quite sure that it is midodrine and reports not having any reaction to it. I explained to him due to this drug being flagged i can't use it for his low bp until i can verify it. I called [facility] and got chance to speak with "Vj" who confirmed that the patient was in their care facility in the past. I introduced myself/my role in this patient care/my urgent need to get information from her and let her know that my patient has low BP and it might go downhill towards medical emergency; and explained her that I need to know whether he used "midodrine" in the past while in there and if there was any allergic reaction to it when used on him. She stated that her needle process felt goods supervisor has to give me a call back to give that information, i explained her the importance of this information as being time sensitive as i need to use them but she kept repeating her needle process felt goods supervisor is on meeting and she will have to give me a call and finally hung up. Pt sitting up, using mobile phone, denies chest pain or dizziness. BP lower and HR higher. Lungs CTA. RN communicated to monitor closely for vitals. Fortunately his BP improved to 91/63 at later time. Utox sent - came negative. CBC/CMP/Mg/P sent - CBC likely could be hemoconcentration,will repeat CBC and procal in AM. Pt has been afebrile last 2- 3 days atleast. Bl Cx sent, will follow. Trops and EKG sent - came back wnl. I updated the patient that i couldn't get the information from [facility], then he called them at bedside and asked them whether or not he had used midodrine in the past to which they searched at that point in time and replied that 5 mg midodrine has been used in the past. Communicated w/ RN to have Pt sign release of information and get all the treatments including medicines and allergies from there. Approximately 50 minutes were spent during d/w RN, reviewing charts, sending labs/reviewing labs, counselling/explaining to the patient; calling pt's prior medical facility [facility] for info.
[2022-07-10 10:23] LABS: Basophils # (auto) 0.07 K/uL (0-0.2); Basophils % (auto) 0.5 %; Eosinophils # (auto) 0.14 K/uL (0-0.50); Eosinophils % (auto) 0.9 %; Hematocrit (blood only) 42.7 % (42.0-52.0); Hemoglobin 14.4 g/dl (14.0-18.0); Immature Granulocytes # (auto) 0.06 K/uL (0.01-0.20); Immature Granulocytes % (auto) 0.4 %; Lymphocytes # (auto) 1.87 K/uL (1.2-3.4); Lymphocytes % (auto) 12.6 %; Mean Corpuscular Hemoglobin 28.7 pg (25.0-34.0); Mean Corpuscular Hgb Conc 33.7 g/dL (32.0-36.0); Mean Corpuscular Volume 85.2 fL (80.0-100.0); Mean Platelet Volume 9.3 fL (9.4-12.4); Monocytes % (auto) 6.7 %; Neutrophils # (auto) 11.73 K/uL (1.40-6.50); Neutrophils % (auto) 78.9 %; Platelet Count 528 K/uL (130-400); RDW Coefficient of Variation 14.1 % (11.5-14.5); RDW Standard Deviation 43.5 fL (36.4-46.3); Red Blood Count 5.01 M/uL (4.70-6.10); White Blood Count 14.87 K/ul (4.8-10.8)
[2022-07-10 10:39] LABS: Alanine Aminotransferase 21 U/L (7-52); Albumin Globulin Ratio 1.4 (0.9-2); Albumin Level 4.7 gm/dl (3.4-5.0); Alkaline Phosphatase 128 U/L (34-104); Anion Gap 5 (3-11); Aspartate Aminotransferase 17 U/L (13-39); BUN Creatinine Ratio 28.6 (10-20); Bilirubin,Total 0.4 mg/dl (0.2-1.0); Blood Urea Nitrogen 20 mg/dl (6-23); Calcium 10.1 mg/dl (8.5-10.1); Carbon Dioxide 33 mmol/L (21-32); Chloride 102 mmol/L (98-107); Creatinine Clr Calc Pharmacy 149.4 ml/min; Est GFR (African American) > 150.0 ml/min; Globulin 3.3 gm/dl (2.5-4.0); Glucose 92 mg/dl (70-99(Fasting)); Magnesium 1.9 mg/dl (1.7-2.4); Potassium 3.8 mmol/L (3.5-5.1); Sodium 140 mmol/L (136-145)
[2022-07-10 10:43] LABS: Troponin I High Sensitivity 2.3 pg/ml (0-20)
[2022-07-10] MEDS: traMADol HCL 50 MG TABLET PO PRN ×2 (12:02→21:24)
[2022-07-10 12:16] LABS: Amphetamines+Metham, Urine Neg (Neg); Barbiturates, Urine Neg (Neg); Benzodiazepine, Urine Neg (Neg); Cocaine, Urine Neg (Neg); MDMA (Ecstacy), Urine Neg (Neg); Methadone, Urine Neg (Neg); Opiate, Urine Neg (Neg); Phencyclidine, Urine Neg (Neg)
--- NOTE | 2022-07-10 12:30 | Electrocardiogram Report ---
Test Reason : Blood Pressure : / mmHG Vent. Rate : 099 BPM Atrial Rate : 099 BPM P-R Int : 152 ms QRS Dur : 098 ms QT Int : 342 ms P-R-T Axes : 074 078 070 degrees QTc Int : 438 ms Normal sinus rhythm Nonspecific T wave abnormality Lateral leads Abnormal ECG When compared with ECG of 29-JUN-2022 17:21, No significant change was found Confirmed by Pk Ortiz ([id number]) on 07/10/2022 12:30:20 PM Referred By: REFERRED SELF Confirmed By:Pk Ortiz
[2022-07-10] MEDS: LORazepam 1 MG TAB PO PRN (17:09)
[2022-07-10] MEDS: hydrOXYzine HCl 10 MG TAB PO PRN (21:24)
[2022-07-10] MEDS: PRAZOSIN HCL 1 MG CAP PO SCH (21:24)
[2022-07-11] MEDS: NICOTINE POLACRILEX 2 MG GUM MT PRN ×15 (00:05→23:03)
[2022-07-11] MEDS: BACLOFEN 10 MG TAB PO SCH ×4 (03:03→19:39)
[2022-07-11 07:03] LABS: Hematocrit (blood only) 36.9 % (42.0-52.0); Hemoglobin 12.2 g/dl (14.0-18.0); Mean Corpuscular Hemoglobin 28.4 pg (25.0-34.0); Mean Corpuscular Hgb Conc 33.1 g/dL (32.0-36.0); Mean Platelet Volume 9.2 fL (9.4-12.4); Platelet Count 461 K/uL (130-400); RDW Coefficient of Variation 14.2 % (11.5-14.5); RDW Standard Deviation 44.1 fL (36.4-46.3); Red Blood Count 4.29 M/uL (4.70-6.10); White Blood Count 7.82 K/ul (4.8-10.8)
[2022-07-11] MEDS: traMADol HCL 50 MG TABLET PO PRN ×3 (08:33→21:18)
[2022-07-11] MEDS: MECLIZINE 12.5 MG TAB PO PRN (08:33)
[2022-07-11] MEDS: APIXABAN 2.5 MG TAB PO SCH ×2 (08:34→19:38)
[2022-07-11] MEDS: GABAPENTIN 300 MG CAP PO SCH ×3 (08:35→19:39)
[2022-07-11] MEDS: SERTRALINE HCL 100 MG TABLET PO SCH (08:35)
[2022-07-11] MEDS: OXYBUTYNIN CHLORIDE 5 MG TAB PO SCH ×2 (08:35→19:40)
[2022-07-11] MEDS: ADVANCED PROBIOTIC 1250 MG CAPSULE PO SCH (08:35)
[2022-07-11] MEDS: ASCORBIC ACID 500 MG TAB PO SCH (08:35)
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
[2022-07-11] MEDS: LORazepam 1 MG TAB PO PRN (17:26)
[2022-07-11] MEDS: PRAZOSIN HCL 1 MG CAP PO SCH (19:40)
[2022-07-12] MEDS: BACLOFEN 10 MG TAB PO SCH ×4 (03:15→20:55)
[2022-07-12] MEDS: NICOTINE POLACRILEX 2 MG GUM MT PRN ×10 (03:16→21:02)
[2022-07-12] MEDS: ADVANCED PROBIOTIC 1250 MG CAPSULE PO SCH (08:18)
[2022-07-12] MEDS: GABAPENTIN 300 MG CAP PO SCH ×3 (08:18→20:57)
[2022-07-12] MEDS: SERTRALINE HCL 100 MG TABLET PO SCH (08:18)
[2022-07-12] MEDS: ASCORBIC ACID 500 MG TAB PO SCH (08:18)
[2022-07-12] MEDS: OXYBUTYNIN CHLORIDE 5 MG TAB PO SCH ×2 (08:18→20:57)
[2022-07-12] MEDS: APIXABAN 2.5 MG TAB PO SCH ×2 (08:18→20:57)
[2022-07-12] MEDS: traMADol HCL 50 MG TABLET PO PRN ×2 (08:53→20:56)
[2022-07-12] MEDS: MECLIZINE 12.5 MG TAB PO PRN (14:12)
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
[2022-07-12] MEDS: PRAZOSIN HCL 1 MG CAP PO SCH (20:58)
[2022-07-12] MEDS: ACETAMINOPHEN 500 MG TAB PO PRN (22:05)
[2022-07-12] MEDS: LORazepam 1 MG TAB PO PRN (22:06)
[2022-07-12 22:59] LABS: Appearance Urine Clear (Clear); Bacteria Urine Automated 2+ (Negative); Bilirubin Urine Negative (Negative); Blood Urine Negative (Negative); Cast Urine Automated 0 /lpf (0-5); Color Urine Yellow; Epithelial Cell Urine Auto >30 /lpf (0-5); Glucose Urine UA Negative (Negative); Ketones Urine Negative (Negative); Leukocyte Esterase Urine 1+ (Negative); Nitrite Urine Negative (Negative); Protein Urine Negative (Negative); RBC Urine Automated 0-4 /hpf (0-4); Specific Gravity Urine 1.015 (1.000-1.030); Urobilinogen Urine Negative (Negative)
[2022-07-13] MEDS: BACLOFEN 10 MG TAB PO SCH ×4 (03:03→21:55)
[2022-07-13] MEDS: traMADol HCL 50 MG TABLET PO PRN ×4 (03:06→21:56)
[2022-07-13] MEDS: NICOTINE POLACRILEX 2 MG GUM MT PRN ×7 (03:08→22:02)
--- NOTE | 2022-07-13 04:59 | Communication Note ---
Date of Service: July 13, 2022 Patient complaining of dysuria symptoms. UA WBC AP Complicated UTI hx ESBL organism Urine CS Ertapenem for now
[2022-07-13 07:29] LABS: Hematocrit (blood only) 38.6 % (42.0-52.0); Mean Corpuscular Hemoglobin 28.8 pg (25.0-34.0); Mean Corpuscular Hgb Conc 33.7 g/dL (32.0-36.0); Mean Corpuscular Volume 85.6 fL (80.0-100.0); Mean Platelet Volume 9.2 fL (9.4-12.4); Platelet Count 499 K/uL (130-400); RDW Coefficient of Variation 13.8 % (11.5-14.5); RDW Standard Deviation 42.9 fL (36.4-46.3); Red Blood Count 4.51 M/uL (4.70-6.10); White Blood Count 7.54 K/ul (4.8-10.8)
[2022-07-13] MEDS: ERTAPENEM SODIUM 1,000 MG in SYRINGE 0 ML IV SCH (08:08)
[2022-07-13] MEDS: APIXABAN 2.5 MG TAB PO SCH ×2 (08:08→21:55)
[2022-07-13] MEDS: SERTRALINE HCL 100 MG TABLET PO SCH (08:11)
[2022-07-13] MEDS: GABAPENTIN 300 MG CAP PO SCH ×3 (08:12→21:55)
[2022-07-13] MEDS: ASCORBIC ACID 500 MG TAB PO SCH (08:12)
[2022-07-13] MEDS: ADVANCED PROBIOTIC 1250 MG CAPSULE PO SCH (08:12)
[2022-07-13] MEDS: OXYBUTYNIN CHLORIDE 5 MG TAB PO SCH ×2 (08:14→21:57)
[2022-07-13] MEDS: MECLIZINE 12.5 MG TAB PO PRN (09:53)
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
[2022-07-13] MEDS: hydrOXYzine HCl 10 MG TAB PO PRN (21:56)
[2022-07-13] MEDS: PRAZOSIN HCL 1 MG CAP PO SCH (21:57)
[2022-07-13] MEDS: LORazepam 1 MG TAB PO PRN (23:07)
[2022-07-14] MEDS: BACLOFEN 10 MG TAB PO SCH ×4 (03:38→20:54)
[2022-07-14] MEDS: NICOTINE POLACRILEX 2 MG GUM MT PRN ×7 (03:41→20:33)
[2022-07-14] MEDS: ERTAPENEM SODIUM 1,000 MG in SYRINGE 0 ML IV SCH (06:11)
[2022-07-14 08:48] LABS: Hematocrit (blood only) 39.5 % (42.0-52.0); Hemoglobin 13.4 g/dl (14.0-18.0); Mean Corpuscular Hemoglobin 28.6 pg (25.0-34.0); Mean Corpuscular Hgb Conc 33.9 g/dL (32.0-36.0); Mean Corpuscular Volume 84.4 fL (80.0-100.0); Platelet Count 492 K/uL (130-400); RDW Coefficient of Variation 13.7 % (11.5-14.5); RDW Standard Deviation 42.5 fL (36.4-46.3); Red Blood Count 4.68 M/uL (4.70-6.10); White Blood Count 7.47 K/ul (4.8-10.8)
[2022-07-14] MEDS: traMADol HCL 50 MG TABLET PO PRN ×3 (09:07→20:52)
[2022-07-14] MEDS: APIXABAN 2.5 MG TAB PO SCH ×2 (09:09→20:53)
[2022-07-14] MEDS: OXYBUTYNIN CHLORIDE 5 MG TAB PO SCH ×2 (09:10→20:55)
[2022-07-14] MEDS: ADVANCED PROBIOTIC 1250 MG CAPSULE PO SCH (09:10)
[2022-07-14] MEDS: ASCORBIC ACID 500 MG TAB PO SCH (09:11)
[2022-07-14] MEDS: GABAPENTIN 300 MG CAP PO SCH ×3 (09:11→20:54)
[2022-07-14] MEDS: SERTRALINE HCL 100 MG TABLET PO SCH (09:12)
[2022-07-14] MEDS: MECLIZINE 12.5 MG TAB PO PRN (10:06)
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
[2022-07-14] MEDS: ACETAMINOPHEN 500 MG TAB PO PRN (12:05)
[2022-07-14] MEDS: LORazepam 1 MG TAB PO PRN (18:16)
[2022-07-14] MEDS: PRAZOSIN HCL 1 MG CAP PO SCH (20:55)
[2022-07-15] MEDS: NICOTINE POLACRILEX 2 MG GUM MT PRN ×2 (00:03→03:21)
[2022-07-15] MEDS: BACLOFEN 10 MG TAB PO SCH ×3 (03:07→09:21)
[2022-07-15] MEDS: traMADol HCL 50 MG TABLET PO PRN ×2 (03:11→09:20)
[2022-07-15] MEDS: ERTAPENEM SODIUM 1,000 MG in SYRINGE 0 ML IV SCH (06:40)
[2022-07-15] MEDS: ASCORBIC ACID 500 MG TAB PO SCH (09:21)
[2022-07-15] MEDS: APIXABAN 2.5 MG TAB PO SCH (09:21)
[2022-07-15] MEDS: GABAPENTIN 300 MG CAP PO SCH (09:22)
[2022-07-15] MEDS: SERTRALINE HCL 100 MG TABLET PO SCH (09:23)
[2022-07-15] MEDS: ADVANCED PROBIOTIC 1250 MG CAPSULE PO SCH (09:23)
[2022-07-15] MEDS: OXYBUTYNIN CHLORIDE 5 MG TAB PO SCH (09:23)
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
[2022-07-15] MEDS: MECLIZINE 12.5 MG TAB PO PRN (10:33)
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
== END 2022-07-15 14:58 | disposition home or self-care (01) | DRG 539 ==
LOC: ED 19:58 → EDINP 05-29 03:26 → SUATTDRO 05-29 03:26 → 3E 05-29 04:55

== ENCOUNTER 2023-12-27 12:23 | Inpatient (IN) ==
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
[2023-12-27 13:08] LABS: Basophils # (auto) 0.04 K/uL (0.00-0.20); Basophils % (auto) 0.4 %; Eosinophils # (auto) 0.15 K/uL (0.00-0.50); Eosinophils % (auto) 1.4 %; Hematocrit (blood only) 36.8 % (42.0-52.0); Hemoglobin 11.7 g/dl (14.0-18.0); Immature Granulocytes # (auto) 0.03 K/uL (0.01-0.20); Immature Granulocytes % (auto) 0.3 %; Mean Corpuscular Hemoglobin 25.2 pg (25.0-34.0); Mean Corpuscular Hgb Conc 31.8 g/dL (32.0-36.0); Mean Corpuscular Volume 79.1 fL (80.0-100.0); Mean Platelet Volume 9.2 fL (9.4-12.4); Monocytes % (auto) 7.7 %; Neutrophils # (auto) 6.77 K/uL (1.40-6.50); Neutrophils % (auto) 65.2 %; Platelet Count 406 K/uL (130-400); RDW Coefficient of Variation 17.4 % (11.5-14.5); RDW Standard Deviation 49.9 fL (36.4-46.3); Red Blood Count 4.65 M/uL (4.70-6.10); White Blood Count 10.39 K/ul (4.8-10.8)
[2023-12-27 13:19] LABS: Alanine Aminotransferase 29 U/L (7-52); Albumin Globulin Ratio 1.4 (0.9-2); Albumin Level 4.8 gm/dl (3.4-5.0); Alkaline Phosphatase 92 U/L (34-104); Anion Gap 7 (3-11); Aspartate Aminotransferase 45 U/L (13-39); BUN Creatinine Ratio 17.3 (10-20); Bilirubin,Total 0.3 mg/dl (0.2-1.0); Blood Urea Nitrogen 13 mg/dl (6-23); Calcium 9.9 mg/dl (8.6-10.3); Carbon Dioxide 30 mmol/L (21-32); Chloride 101 mmol/L (98-107); Est GFR (African American) 148.8 ml/min; Est GFR (Non-African American) 128.4 ml/min; Globulin 3.4 gm/dl (2.5-4.0); Glucose 83 mg/dl (70-99(Fasting)); Sodium 138 mmol/L (136-145); Total Protein 8.2 gm/dl (6.0-8.3)
[2023-12-27 15:56] LABS: Appearance Urine Clear (Clear); Bacteria Urine Automated None Seen (None Seen); Bilirubin Urine Negative (Negative); Blood Urine Negative (Negative); Cast Urine Automated 0-2 /lpf (0-2); Color Urine Yellow; Epithelial Cell Urine Auto 0-2 /hpf (0-2); Glucose Urine UA Negative (Negative); Ketones Urine Negative (Negative); Leukocyte Esterase Urine 3+ (Negative); Nitrite Urine Negative (Negative); Protein Urine Negative (Negative); RBC Urine Automated 0-2 /hpf (0-2); Specific Gravity Urine 1.007 (1.000-1.030); Urobilinogen Urine Negative (Negative); WBC Urine Automated 21-50 /hpf (0-5)
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
[2023-12-27] MEDS: traMADol HCL 50 MG TABLET PO STA (16:43)
--- NOTE | 2023-12-27 16:56 | Ultrasound Report ---
BILATERAL LOWER EXTREMITY VENOUS DOPPLER HISTORY: Lower extremity edema. Eval for DVT COMPARISON STUDY: None. FINDINGS: There is normal compressibility, flow, and augmentation within the bilateral lower extremit y deep venous systems. IMPRESSION: No DVT within the right or left lower extremity. ACT 112: Negative or not required by law. Electronically signed by: Arnulfo Gonzalez M.D. 12/27/2023 4:55 PM
[2023-12-27] MEDS ORDERED: VANCOMYCIN CONSULT ACTIVE PRN (18:27)
[2023-12-27] MEDS: cefTRIAXone SODIUM 2,000 MG/50 ML BAG IV STA (18:34)
[2023-12-27] MEDS ORDERED: METOCLOPRAMIDE HCL 10 MG TABLET PO PRN (18:45)
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
[2023-12-27] MEDS ORDERED: ALUMINUM/MAGNESIUM SUSP 30 ML UDC PO PRN (18:51)
[2023-12-27] MEDS ORDERED: ACETAMINOPHEN 325 MG TAB PO PRN (18:51)
[2023-12-27] MEDS ORDERED: MAGNESIUM HYDROXIDE SUSP 30 ML UDC PO PRN (18:51)
[2023-12-27 19:19] LABS: Amphetamines+Metham, Urine Neg (Neg); Barbiturates, Urine Neg (Neg); Benzodiazepine, Urine Neg (Neg); Cocaine, Urine Neg (Neg); Fentanyl, Urine Neg (Neg); MDMA (Ecstacy), Urine Neg (Neg); Marijuana, Urine Pos (Neg); Methadone, Urine Neg (Neg); Opiate, Urine Neg (Neg); Phencyclidine, Urine Neg (Neg)
--- NOTE | 2023-12-27 19:26 | XRay Report ---
XR foot RT min 3V routine, XR foot LT min 3V routine CLINICAL HISTORY: Bilateral foot swelling. Assess for osteomyelitis. COMPARISON STUDY: None. FINDINGS: The bones are osteopenic. Soft tissue edema/swelling within the bilateral feet. No acute fr acture or dislocation. There is a partially visualized intramedullary haris within the right tibia. No bony destructive changes to suggest an osteomyelitis. No acute fracture or dislocation. Mild degenera tive changes within the mid feet. IMPRESSION: 1. Soft tissue swelling/edema within the bilateral feet. 2. No evidence for osteomyelitis. ACT 112: Negative or not required by law. Electronically signed by: Arnulfo Gonzalez M.D. 12/27/2023 7:23 PM
[2023-12-27] MEDS: diphenhydrAMINE Capsule 25 MG CAP PO ONE (19:27)
[2023-12-27] MEDS: MIDODRINE HCL 2.5 MG TAB PO SCH (22:26)
[2023-12-27] MEDS: VANCOMYCIN HCL 1,750 MG in SODIUM CHLORIDE 0.9% 500 ML IV ONE (22:51)
[2023-12-27] MEDS: APIXABAN 2.5 MG TAB PO SCH (22:55)
[2023-12-27] MEDS: GABAPENTIN 600 MG TAB PO SCH (22:57)
[2023-12-27] MEDS: BACLOFEN 10 MG TAB PO PRN (23:05)
[2023-12-28] MEDS: VANCOMYCIN HCL 1,750 MG in SODIUM CHLORIDE 0.9% 500 ML IV SCH (04:33)
[2023-12-28] MEDS: MIDODRINE HCL 2.5 MG TAB PO SCH (07:54)
[2023-12-28] MEDS: traMADol HCL 50 MG TABLET PO PRN (07:54)
[2023-12-28] MEDS ORDERED: cefTRIAXone SODIUM 1,000 MG/50 ML BAG IV SCH (08:00)
[2023-12-28] MEDS ORDERED: NON-FORMULARY MEDICATION (Zinc Gluconate 50 mg Tablet) PO SCH (09:00)
[2023-12-28] MEDS: ERTAPENEM SODIUM 1,000 MG in SYRINGE 0 ML IV SCH (09:14)
[2023-12-28] MEDS: DULoxetine HCL 30 MG CAP PO SCH (09:46)
[2023-12-28] MEDS: ADVANCED PROBIOTIC 625 MG CAPSULE PO SCH (09:46)
[2023-12-28] MEDS: MULTIVITAMIN TAB PO SCH (09:47)
[2023-12-28] MEDS: MELOXICAM 7.5 MG TAB PO SCH (09:47)
[2023-12-28] MEDS: VENLAFAXINE HCL XR 150 MG CAPXR PO SCH (09:47)
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
--- NOTE | 2023-12-28 12:26 | Pharmacy Report ---
Pharmacy PK ABX Note - Date of Service December 28, 2023 - Assessment and Plan Assessment 23 year old M receiving vancomycin/ertapenem for treatment of bilateral feet cellulitis. Pertinent microbiologic data includes: urine culture growing two species of gram negative bacilli (final identification and sensitivities pending). History of ESBL Klebsiella pneumoniae in urine and MRSA from decubitus ulcer. Day # 1 of antimicrobial therapy. Plan Vancomycin * Loading dose: 1750 mg IV x 1 * Maintenance dose: 1750 mg IV every 12 hours * Regimen is predicted to achieve target AUC/KATHERIN of 400-600 mg/L.hr * Trough level ordered for: 12/29/23 @0330 Pharmacy will continue to follow and will adjust dose/frequency as necessary. Thank you. Pharmacy has transitioned to AUC monitoring for vancomycin. AUC/KATHERIN is the preferred PK/PD target and is associated with decreased risk of nephrotoxicity compared to traditional trough targets.
[2023-12-28] MEDS ORDERED: cefTRIAXone SODIUM 2,000 MG/50 ML BAG IV SCH (16:00)
[2023-12-28 16:34] LABS: A calco-baum cmplx NotReported Not Detected (NotDetected); Bact fragilis Not Reported Not Detected (NotDetected); Blood Culture Id Panel See PCR Comment (NotDetected); C auris Not Reported Not Detected (NotDetected); Calbicans Not Reported Not Detected (NotDetected); Candida glabrata Not Reported Not Detected (NotDetected); Candida krusei Not Reported Not Detected (NotDetected); Cneoformans/gatti Not Reported Not Detected (NotDetected); Cparapsilosis Not Reported Not Detected (NotDetected); E cloacae compx Not Reported Not Detected (NotDetected); Efaecalis Not Reported Not Detected (NotDetected); Efaecium Not Reported Not Detected (NotDetected); Enterobacterales Not Reported Not Detected (NotDetected); Escherichia coli Not Reported Not Detected (NotDetected); H influenzae Not Reported Not Detected (NotDetected); K aerogenes Not Reported Not Detected (NotDetected); Koxytoca Not Reported Not Detected (NotDetected); Kpneumoniae grp Not Reported Not Detected (NotDetected); Lmonocyt Not Reported Not Detected (NotDetected); N meningitidis Not Reported Not Detected (NotDetected); P aeruginosa Not Reported Not Detected (NotDetected); Proteus spp Not Reported Not Detected (NotDetected); Salmonella spp Not Reported Not Detected (NotDetected); Staph lugdunensis Not Reported Not Detected (NotDetected); Staph spp. Not Reported DETECTED (NotDetected); Staphaureus Not Reported Not Detected (NotDetected); Staphepi Not Reported DETECTED (NotDetected); Staphylococcus spp. DETECTED (NotDetected); Stenmaltophilia Not Reported Not Detected (NotDetected); Strep agal(GrpB) Not Reported Not Detected (NotDetected); Strep pneum Not Reported Not Detected (NotDetected); Strep pyog (GrpA) Not Reported Not Detected (NotDetected); Strep spp Not Reported Not Detected (NotDetected); mecAC Resistant Gene DETECTED (NotDetected)
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
[2023-12-28 16:52] LABS: Mean Corpuscular Hemoglobin 25.2 pg (25.0-34.0); Mean Corpuscular Hgb Conc 31.4 g/dL (32.0-36.0); Mean Corpuscular Volume 80.1 fL (80.0-100.0); Mean Platelet Volume 9.3 fL (9.4-12.4); Platelet Count 357 K/uL (130-400); RDW Coefficient of Variation 17.6 % (11.5-14.5); RDW Standard Deviation 50.8 fL (36.4-46.3); Red Blood Count 4.37 M/uL (4.70-6.10); White Blood Count 9.56 K/ul (4.8-10.8)
[2023-12-28 16:55] LABS: Staphylococcus epidermidis DETECTED (NotDetected)
[2023-12-28 17:10] LABS: Albumin Globulin Ratio 1.3 (0.9-2); Albumin Level 4.2 gm/dl (3.4-5.0); BUN Creatinine Ratio 15.6 (10-20); Bilirubin,Total 0.2 mg/dl (0.2-1.0); Calcium 9.5 mg/dl (8.6-10.3); Creatinine Clr Calc Pharmacy 138.3 ml/min; Est GFR (African American) 147.2 ml/min; Globulin 3.2 gm/dl (2.5-4.0); Magnesium 2.1 mg/dl (1.7-2.4); Phosphorus 4.4 mg/dl (2.5-4.9); Total Protein 7.4 gm/dl (6.0-8.3)
[2023-12-29 03:53] LABS: Hemoglobin 10.8 g/dl (14.0-18.0); Mean Corpuscular Hemoglobin 25.5 pg (25.0-34.0); Mean Corpuscular Hgb Conc 31.8 g/dL (32.0-36.0); Mean Corpuscular Volume 80.4 fL (80.0-100.0); Mean Platelet Volume 9.3 fL (9.4-12.4); Platelet Count 343 K/uL (130-400); RDW Coefficient of Variation 17.7 % (11.5-14.5); RDW Standard Deviation 51.6 fL (36.4-46.3); Red Blood Count 4.23 M/uL (4.70-6.10); White Blood Count 7.55 K/ul (4.8-10.8)
[2023-12-29 03:57] LABS: Anion Gap 6 (3-11); BUN Creatinine Ratio 17.8 (10-20); Blood Urea Nitrogen 13 mg/dl (6-23); Calcium 9.5 mg/dl (8.6-10.3); Carbon Dioxide 29 mmol/L (21-32); Chloride 103 mmol/L (98-107); Creatinine Clr Calc Pharmacy 145.9 ml/min; Est GFR (African American) > 150.0 ml/min; Est GFR (Non-African American) 129.8 ml/min; Glucose 92 mg/dl (70-99(Fasting)); Sodium 138 mmol/L (136-145)
[2023-12-29] MEDS: VANCOMYCIN LEVEL ONE (05:14)
--- NOTE | 2023-12-29 07:53 | Pharmacy Report ---
Pharmacy PK ABX Note - Date of Service December 29, 2023 - Assessment and Plan Assessment 12/29/2023: Patient continuing vancomycin/ertapenem for treatment of various infections. Blood culture grew coag neg staph not lugdunensis in the aerobic, but not the anaerobic culture (likely contaminant). Patient's vancomycin trough level came back as 16 this AM adjusting AUC at steady state estimates to be above 600 mg/L.hr, will reduce vancomycin dosing to prevent nephrotoxicity. 12/28/2023: 23 year old M receiving vancomycin/ertapenem for treatment of bilateral feet cellulitis. Pertinent microbiologic data includes: urine culture growing two species of gram negative bacilli (final identification and sensitivities pending). History of ESBL Klebsiella pneumoniae in urine and MRSA from decubitus ulcer. Day # 2 of antimicrobial therapy. Plan Vancomycin * Loading dose: 1750 mg IV x 1 * Maintenance dose: 1500 mg IV every 12 hours (Reduced from 1750 mg Q12H) * Regimen is predicted to achieve target AUC/KATHERIN of 400-600 mg/L.hr * Vancomycin levels will be ordered as needed Pharmacy will continue to follow and will adjust dose/frequency as necessary. Thank you. Pharmacy has transitioned to AUC monitoring for vancomycin. AUC/KATHERIN is the preferred PK/PD target and is associated with decreased risk of nephrotoxicity compared to traditional trough targets.
[2023-12-29] MEDS: PRAZOSIN HCL 1 MG CAP PO PRN (09:09)
[2023-12-29] MEDS: VANCOMYCIN HCL 1,500 MG in SODIUM CHLORIDE 0.9% 500 ML IV SCH (16:26)
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
[2023-12-29] MEDS: NICOTINE POLACRILEX 2 MG GUM MT PRN ×2 (18:26→22:10)
[2023-12-29] MEDS: NICOTINE POLACRILEX 2 MG GUM MT ONE (22:04)
[2023-12-30 07:22] VITALS: BP 123/71; PULSE 69; RESP 16; TEMP 97.5; O2SAT 97
[2023-12-30 09:42] LABS: Marijuana Quant, GCMS Urine 116 ng/mL (<5)
--- NOTE | 2023-12-30 10:30 | Infectious Disease Progress Nt ---
Date of Service December 30, 2023 Telehealth Information Patient not seen today. Subjective Reviewed labs and culture results, as well as XR's and images of wounds. Wound shows no evidence of infection, but feet appear cellulitic. Swab from toe wound shows MRSA which likely correlates with underlying soft tissue infection. Urine culture with [employer] noted, but UA shows absolutely no pyuria or evidence of infection and does not require therapy. Blood cultures remain negative and no fevers or leukocytosis. I would suggest stopping the ertapenem and vancomycin and consider changing to doxycycline 100mg po bid to extend x 14 days. ID will sign off for now. Please call with any questions or should his clinical course change. Results & Data Vital Signs (Past 12 Hours) Vital Signs Temp Pulse Resp BP Pulse Ox O2 Del Method 12/30/23 07:20 36.4 C L 69 16 123/71 97 Room Air
[2023-12-30] MEDS: LOPERAMIDE HCL 2 MG CAP PO PRN (11:58)
[2023-12-30 12:04] LABS: Hematocrit (blood only) 36.4 % (42.0-52.0); Hemoglobin 11.4 g/dl (14.0-18.0); Mean Corpuscular Hemoglobin 24.9 pg (25.0-34.0); Mean Corpuscular Hgb Conc 31.3 g/dL (32.0-36.0); Mean Corpuscular Volume 79.5 fL (80.0-100.0); Platelet Count 379 K/uL (130-400); RDW Coefficient of Variation 16.8 % (11.5-14.5); RDW Standard Deviation 48.1 fL (36.4-46.3); Red Blood Count 4.58 M/uL (4.70-6.10); White Blood Count 6.83 K/ul (4.8-10.8)
[2023-12-30 12:17] LABS: BUN Creatinine Ratio 13.3 (10-20); Calcium 9.4 mg/dl (8.6-10.3); Creatinine Clr Calc Pharmacy 118.3 ml/min; Est GFR (African American) 138.1 ml/min; Est GFR (Non-African American) 119.1 ml/min; Potassium 4.1 mmol/L (3.5-5.1)
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
--- NOTE | 2023-12-31 05:38 | Coding Query ---
PRESSURE ULCER DOCUMENTATION To promote full compliance with coding requirements relating to patient care, physician participation is requested in all cases of wiping cloth cutter uncertainty. Please assist us with the question(s) below: Please specify the known or suspected type by placing an "X" within the parenthesis (x). 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 Wound Care notes pressure ulcer. Progress note stage Stage 1 sacral ulcer; DS stated healed sacral ulcer. Thanks for your help! KAROL Booker CCS If possible, please check the box that provides the specific stage of the pressure ulcer ( ) Stage I ( ) Stage II ( ) Stage III ( ) Stage IV ( ) Unstageable Healed sacral ulcer Was the pressure ulcer present on admission? Please check the appropriate box for the pressure ulcer: ( ) Present on admission ( ) Not present on admission ( ) Unable to be clinically determined Thank you Laith SMITH
[2024-01-01] MEDS ORDERED: VANCOMYCIN LEVEL ONE (03:00)
== END 2023-12-30 15:46 | disposition home or self-care (01) | DRG 603 ==
LOC: ED 12:23 → 3E 18:51 → SUATTDRO 18:51 → 3E 21:09
DX: N39.0 Urinary tract infection, site not specified; S24.101S Unspecified injury at T1 level of thoracic spinal cord, sequela; G82.20 Paraplegia, unspecified; N31.9 Neuromuscular dysfunction of bladder, unspecified; G89.29 Other chronic pain; V13.0XXA Pedal cycle driver injured in collision with car, pick-up truck or van in nontraffic accident, initial encounter; Z79.01 Long term (current) use of anticoagulants; L03.116 Cellulitis of left lower limb; Y92.89 Other specified places as the place of occurrence of the external cause; B96.4 Proteus (mirabilis) (morganii) as the cause of diseases classified elsewhere; F17.210 Nicotine dependence, cigarettes, uncomplicated; X58.XXXA Exposure to other specified factors, initial encounter; Z93.3 Colostomy status; L08.9 Local infection of the skin and subcutaneous tissue, unspecified; B95.62 Methicillin resistant Staphylococcus aureus infection as the cause of diseases classified elsewhere; F43.10 Post-traumatic stress disorder, unspecified; Z59.01 Sheltered homelessness; Z99.3 Dependence on wheelchair; T83.518A Infection and inflammatory reaction due to other urinary catheter, initial encounter; S91.111A Laceration without foreign body of right great toe without damage to nail, initial encounter; F63.9 Impulse disorder, unspecified; L03.115 Cellulitis of right lower limb

== ENCOUNTER 2024-01-04 11:28 | Inpatient (IN) ==
--- OUTSIDE RECORDS SUMMARY | 2024-01-04 11:32 | External Medical Summary | Summary of Care ---
Author Name Unknown Organization [facility] Address [address] [place] [address] Phone [phone] Care Team Providers Care Facilities Operations Technician Name Role Phone Unavailable Primary Care Provider Unavailabl e Reason for Visit * Reason Onset Date Comments Med Request 12/14/2023 Encounter Details Date Type Department Care Team (Late st Contact Info) Description 12/14/2023 Telephone General Internal Medicine [facility] [address] [place] [address] Araceli Quesada MD [address] [place] [address] Med Request Allergies No known active allergiesdocumented as of this encounter (statuses as of 01/02/2024) Medications Medication Sig Dispensed Refills Start Date [...] or chew. 30 Capsule 5 12/07/2023 Active Prazosin HCl 1 MG Oral Capsule (Minipress) Take 1 Capsule by mouth at bedtime. 4 Discontinue d(Refill) Metoclopramide HCl 10 MG Oral Tablet (Reglan) Take 1 Tablet by mouth in the morning and 1 Tablet at noon and 1 Tablet in the evening and 1 Tablet before bedtime. 4 Discontinue d(Refill) Baclofen 10 MG Oral Packet Take 10 mg by mouth as needed for Muscle spasms. 4 Discontinue d(Refill) Midodrine HCl 2.5 MG Oral Tablet (Proamatine) Take 1 Tablet by mouth in the morning and 1 Tablet at noon and 1 Tablet in the evening. 4 Discontinue d(Refill) Apixaban 2.5 MG Oral Tablet (Eliquis) Take by mouth 2 times a day. 4 Discontinue d(Refill) Gabapentin 600 MG Oral Tablet (Neurontin) Take 1 Tablet by mouth in the morning and 1 Tablet at noon and 1 Tablet before bedtime. 4 Discontinue d(Refill) Hospital, Clinic, or Other Facility Administered Medication Ordered Dose Route Frequency Start Date End Date Status naloxone (Narcan Nasal) 4 MG/0.1ML nasal spray 4 mgIndications:Opioid dependence in remission (HCC) 4 mg NA PRN 01/13/2019 Active documented as of this encounter (statuses as of 01/02/2024) Active Problems Problem Noted Date Diagnosed Date [...] 04/13/2017 Overview: Per 04/08/17 drug screen at [facility] documented as of this encounter (statuses as of 01/02/2024) Resolved Problems Problem Noted Date Diagnosed Date Resolved Date ADHD (attention deficit hype ractivity disorder) 04/15/2013 04/15/2013 ADD (attention deficit disorder) 04/15/2013 09/01/2016 Nocturnal enuresis 01/09/2012 7 Migraine 01/09/2012 04/10/2017 documented as of this encounter (statuses as of 01/02/2024) Immunizations Name Administration Dates Next Due COVID-19 [...] encounter Miscellaneous Notes * Telephone Encounter - Nemo Samuels LPN - 12/30/2023 1:33 PM EDT My g message sent to patient. * Telephone Encounter - Dione Chang LPN - 12/16/2023 3:40 PM EDT See other encounter as well * Telephone Encounter - Marti Cooley, MED ASSIST - 12/16/2023 3:26 PM EDT Attempted to call patient, there was no answer, left voicemail. When patient returns call, ok for LEIGH to relay message, please refer to below documentation. If needed, can transfer to dedicated nurse line. * Telephone Encounter - Julito Phillips MD - 12/16/2023 3:06 PM EDT Yes, continue to get from psychiatry * Telephone Encounter - Leila Horner CPhT - 12/15/2023 9:45 AM EDT Pt calling to check on status of Venlafaxine . Caller can be reached at [phone]. Thank you, Leila Horner CPhT Certified Alcohol Drug Counselor II [facility] 12/15/2023,9:45 AM * Telephone Encounter - Nemo Samuels LPN - 12/14/2023 2:40 PM EDT Please see request. Refill not pended since it was previously ordered by psych. Should patient continue to get through psych until Dr. Quesada returns and can address whether or not she will take over prescribing this med for patient? * Telephone Encounter - Arleen George CPhT - 12/14/2023 1:32 PM EDT Patient calling to request a refill on Venlafaxine Xr 150mg. Medication was last prescribed by Psychiatry but patient is asking if PCP can take over the medication. Please advise if this is appropriate and send to [id number] [address] [place] [address] if agreeable. Pt is out of med, requesting high priority Thank you, Arleen George CPhT Operations Manager Station II [facility] 12/14/2023, 1:33 PM documented in this encounter Plan of Treatment Upcoming Encounters Date Type Department Care Team (Late st Contact Info) Description 01/06/2024 3:20 PM EDT Office Visit [facility] [address] [facility] [place] [address] Pk Mahoney MD [address] [facility] [place] [address] 01/19/2024 2:00 PM EDT Office Visit [facility] [address] [facility] [place] [address] Pk Mahoney MD [address] [facility] [place] [address] 01/19/2024 3:00 PM EDT Office Visit Gastroenterology, [facility] [address] [facility] [place] [address] Vandana Monaco CRNP 132 [facility] [place] [address] 07/13/2024 2:30 PM EDT Office Visit Urology, [facility] [address] [facility] [place] [address] Fareed Morgan MD [address] [place] [address] Health Maintenance Due Date Last Done Comments Pneumococcal Vaccine: Pediat rics (0 to 5 Years) and At-Risk Patients (6 to 64 Years) (1 of 2 - PCV) 07/17/2005 08/14/2000, 05/20/2000 HPV (Gardasil) Vaccine (1 - Male 3-dose series) 07/17/2014 Depression Screening 01/14/2020 01/13/2019 COVID-19 Vaccine (2 - 2022-2 4 season) 2023 12/19/2021, 05/08/2021, 02/07/2021 Influenza Vaccine (FLU shot) (#1) 2024 DTap/Tdap Vaccines (8 - Td o r Tdap) 02/25/2031 02/25/2021, 02/26/2011, 12/29/2003, Additional history exists Hepatitis B Vaccine Completed 05/20/2000, 01/09/2000, 1999 MENINGOCOCCAL (MENACTRA/MENVEO) Completed 6, 02/26/2011 documented as of this encounter Medical Devices Not on filedocumented as of this encounter
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
[2024-01-04] MEDS: cefTRIAXone SODIUM 2,000 MG/50 ML BAG IV STA (13:09)
[2024-01-04] MEDS: traMADol HCL 50 MG TABLET PO STA (13:09)
[2024-01-04 13:18] LABS: Basophils # (auto) 0.08 K/uL (0.00-0.20); Basophils % (auto) 0.8 %; Eosinophils # (auto) 0.23 K/uL (0.00-0.50); Eosinophils % (auto) 2.2 %; Hematocrit (blood only) 37.9 % (42.0-52.0); Immature Granulocytes # (auto) 0.03 K/uL (0.01-0.20); Immature Granulocytes % (auto) 0.3 %; Lymphocytes # (auto) 2.12 K/uL (1.20-3.40); Lymphocytes % (auto) 20.7 %; Mean Corpuscular Hemoglobin 25.4 pg (25.0-34.0); Mean Corpuscular Hgb Conc 31.7 g/dL (32.0-36.0); Mean Corpuscular Volume 80.3 fL (80.0-100.0); Mean Platelet Volume 9.2 fL (9.4-12.4); Monocytes # (auto) 0.81 K/uL (0.11-0.59); Monocytes % (auto) 7.9 %; Neutrophils # (auto) 6.99 K/uL (1.40-6.50); Neutrophils % (auto) 68.1 %; Platelet Count 563 K/uL (130-400); RDW Coefficient of Variation 17.4 % (11.5-14.5); RDW Standard Deviation 51.4 fL (36.4-46.3); Red Blood Count 4.72 M/uL (4.70-6.10); White Blood Count 10.26 K/ul (4.8-10.8)
--- NOTE | 2024-01-04 13:36 | XRay Report ---
XR toe(s) RT min 2V CLINICAL HISTORY: Right first toe pain. COMPARISON STUDY: Right foot 12/27/2023. FINDINGS: 3 views the right first toe were submitted for review. No fracture or dislocation within th e right first toe. Soft tissue swelling within the right forefoot. A tiny focus of erosion at the med ial head of the first metatarsal demonstrating sclerotic edges. No bony destructive changes. No radio paque foreign bodies. IMPRESSION: 1. No acute fracture or dislocation of the right first toe. 2. Diffuse soft tissue swelling, unchanged. 3. Tiny erosion at the medial head of the first metatarsal. This could be chronic or represent early gouty arthritis. 4. No bony destructive changes to suggest an osteomyelitis. ACT 112: Negative or not required by law. Electronically signed by: Arnulfo Gonzalez M.D. 01/04/2024 1:34 PM
[2024-01-04 13:38] LABS: Albumin Globulin Ratio 1.4 (0.9-2); Albumin Level 4.5 gm/dl (3.4-5.0); BUN Creatinine Ratio 21.1 (10-20); Bilirubin,Total 0.2 mg/dl (0.2-1.0); Calcium 9.7 mg/dl (8.6-10.3); Creatinine Clr Calc Pharmacy 137.2 ml/min; Est GFR (Non-African American) 127.7 ml/min; Globulin 3.2 gm/dl (2.5-4.0); Potassium 4.2 mmol/L (3.5-5.1); Total Protein 7.7 gm/dl (6.0-8.3)
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
[2024-01-04] MEDS ORDERED: VANCOMYCIN CONSULT ACTIVE PRN ×2 (15:32→15:33)
[2024-01-04] MEDS ORDERED: VANCOMYCIN HCL 1,500 MG in SODIUM CHLORIDE 0.9% 500 ML IV ONE (15:33)
[2024-01-04] MEDS: VANCOMYCIN HCL 1,750 MG in SODIUM CHLORIDE 0.9% 500 ML IV STA (16:45)
[2024-01-04] MEDS ORDERED: BACLOFEN 10 MG TAB PO PRN (17:42)
[2024-01-04] MEDS ORDERED: PRAZOSIN HCL 1 MG CAP PO PRN (17:42)
[2024-01-04] MEDS ORDERED: ACETAMINOPHEN 500 MG TAB PO PRN (17:42)
[2024-01-04] MEDS ORDERED: METOCLOPRAMIDE HCL 10 MG TABLET PO PRN (17:42)
[2024-01-04] MEDS: MIDODRINE HCL 2.5 MG TAB PO SCH (20:03)
[2024-01-04] MEDS: GABAPENTIN 600 MG TAB PO SCH (20:03)
[2024-01-04] MEDS: BACLOFEN 20 MG TAB PO SCH (20:03)
[2024-01-04] MEDS: traMADol HCL 50 MG TABLET PO PRN (20:03)
[2024-01-04] MEDS: APIXABAN 2.5 MG TAB PO SCH (20:04)
[2024-01-04] MEDS: diphenhydrAMINE 50 MG/ML VIAL IV PRN (23:01)
[2024-01-04] MEDS: VANCOMYCIN HCL 1,000 MG in SODIUM CHLORIDE 0.9% 250 ML IV SCH (23:23)
[2024-01-05] MEDS: VENLAFAXINE HCL XR 150 MG CAPXR PO SCH (09:04)
[2024-01-05] MEDS: ASCORBIC ACID 500 MG TAB PO SCH (09:04)
[2024-01-05] MEDS: ZINC SULFATE 220 MG CAPSULE PO SCH (09:04)
[2024-01-05] MEDS: MULTIVITAMIN TAB PO SCH (09:04)
[2024-01-05] MEDS: DULoxetine HCL 30 MG CAP PO SCH (09:04)
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
[2024-01-05 09:24] LABS: Mean Corpuscular Hemoglobin 24.9 pg (25.0-34.0); Mean Corpuscular Hgb Conc 30.8 g/dL (32.0-36.0); Mean Corpuscular Volume 81.1 fL (80.0-100.0); Mean Platelet Volume 9.4 fL (9.4-12.4); Platelet Count 530 K/uL (130-400); RDW Coefficient of Variation 17.9 % (11.5-14.5); RDW Standard Deviation 52.6 fL (36.4-46.3); Red Blood Count 4.81 M/uL (4.70-6.10); White Blood Count 7.44 K/ul (4.8-10.8)
[2024-01-05 09:41] LABS: BUN Creatinine Ratio 12.9 (10-20); Calcium 9.6 mg/dl (8.6-10.3); Creatinine Clr Calc Pharmacy 121.5 ml/min; Est GFR (African American) 141.3 ml/min; Potassium 4.4 mmol/L (3.5-5.1)
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
[2024-01-05] MEDS: VANCOMYCIN LEVEL ONE (16:27)
[2024-01-06] MEDS: VANCOMYCIN HCL 1,250 MG in SODIUM CHLORIDE 0.9% 250 ML IV SCH (00:50)
[2024-01-06] MEDS ORDERED: VANCOMYCIN LEVEL ONE (07:00)
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
[2024-01-06] MEDS: LOPERAMIDE HCL 2 MG CAP PO PRN (16:41)
[2024-01-06] MEDS ORDERED: diphenhydrAMINE 50 MG/ML VIAL IV PRN (23:08)
[2024-01-06] MEDS: diphenhydrAMINE 50 MG/ML VIAL IV SCH (23:26)
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
[2024-01-07] MEDS: DOXYCYCLINE HYCLATE 100 MG CAP PO SCH (18:26)
[2024-01-08 08:58] VITALS: BP 128/76; PULSE 69; RESP 16; TEMP 97.7; O2SAT 98
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
== END 2024-01-08 15:20 | disposition home or self-care (01) | DRG 603 ==
LOC: ED 11:28 → 3E 15:31 → SUATTDRO 15:31 → 3E 16:44